=== PATIENT | male | born 1945 | race Caucasian/White ===

== ENCOUNTER 2017-09-24 17:02 | Inpatient (IN) | payer MEDICARE, BC ==
[~2017-09-24] VITALS: Ht 185.4 cm; Wt 117.1 kg
[~2017-09-24 17:02] MED LIST: ALLO100T PO; ASPI81TA82 PO; ATOR40TA PO; COUM5TAB PO; FURO80TA3 PO; KLOR20TA6 PO; METO100T PO; TAMS0.4C67 PO
[2017-09-24 17:03] VITALS: BP 188/102; PULSE 66; RESP 16; TEMP 97.9; O2SAT 95
--- NOTE | 2017-09-24 17:39 | PD ---
HPI Chief Complaint: Cardiac Complaint Time Seen by Provider: 17:30 Travel History International Travel<30 days: No Contact w/Intl Traveler<30days: No Traveled to known affect area: No History of Present Illness HPI Patient seen and examined by me in triage. He is a 72 year old male history of bipass and CHF presents to the ER for evaluation of increasing SOB and 7lb weight gain. Patient was sent by Dr. Alexandre's office for evaluation of increasing shortness of breath over the past few days, he has had a 7 pound weight gain which was confirmed by Dr. Alexandre's office. He denies any chest pain or abdominal pain or nausea or vomiting, so endorses orthopnea and dyspnea on exertion. Symptoms are moderate, gradually worsening over the past few days , associated signs symptoms and context as above PFSH Past Medical History Cancer: Yes Cardiac Catheterization: Yes (ANGIOPLASTY DONE) High Cholesterol: Yes Chest Pain: Yes Coronary Artery Disease: Yes Diminished Hearing: No Hypertension: Yes Immunizations Current: Yes Myocardial Infarction: Yes Past Surgical History Cholecystectomy: Yes Coronary Artery Bypass Graft: Yes Genitourinary Surgery: Yes (RIGHT KIDNEY REMOVED ) Social History Alcohol Use: Yes (OCCASIONAL) Tobacco Use: No Substance Use: No Allergies-Medications (Allergen,Severity, Reaction): Coded Allergies: No Known Allergies (Verified Allergy, Unknown, 09/24/17) Reported Meds & Prescriptions Reported Meds & Active Scripts Active Reported Aspirin 81 Mg Chew 81 Mg CHEW DAILY Allopurinol 100 Mg Tab 100 Mg PO DAILY Tamsulosin (Tamsulosin HCl) 0.4 Mg Cap 0.8 Mg PO HS Torsemide 20 Mg Tab 20 Mg PO DAILY Coreg (Carvedilol) 25 Mg Tab 25 Mg PO BID Review of Systems Except as stated in HPI: all other systems reviewed are Neg Physical Exam Narrative GENERAL: Well-developed, morbidly obese male in no obvious distress. He is quite pleasant, jovial SKIN: Focused skin assessment warm/dry. HEAD: Atraumatic. Normocephalic. EYES: Pupils equal and round. No scleral icterus. No injection or drainage. ENT: No nasal bleeding or discharge. Mucous membranes pink and moist. NECK: Trachea midline. No JVD. CARDIOVASCULAR: Regular rate and rhythm. No murmur appreciated. RESPIRATORY: Mildly tachypneic, no accessory muscle use, bibasilar rales auscultated GASTROINTESTINAL: Abdomen soft, non-tender, nondistended. Hepatic and splenic margins not palpable. MUSCULOSKELETAL: No obvious deformities. No clubbing. No cyanosis. 2+ pitting edema to bilateral lower extremities NEUROLOGICAL: Awake and alert. No obvious cranial nerve deficits. Motor grossly within normal limits. Normal speech. PSYCHIATRIC: Appropriate mood and affect; insight and judgment normal. Data Data Last Documented VS Vital Signs Date Time Temp Pulse Resp B/P (MAP) Pulse Ox O2 Delivery O2 Flow Rate FiO2 09/24/17 18:48 22 97 Room Air 09/24/17 17:03 97.9 66 188/102 (130) Orders Orders Complete Blood Count With Diff (09/24/17 17:17) Comprehensive Metabolic Panel (09/24/17 17:17) B-Type Natriuretic Peptide (09/24/17 17:17) Act Partial Throm Time (Ptt) (09/24/17 17:17) Prothrombin Time / Inr (Pt) (09/24/17 17:17) Magnesium (Mg) (09/24/17 17:17) Ckmb (Isoenzyme) Profile (09/24/17 17:17) Troponin I (09/24/17 17:17) Electrocardiogram (09/24/17 17:17) Chest, Pa & Lat (09/24/17 17:17) Furosemide Inj (Lasix Inj) (09/24/17 17:45) Aspirin Chew (Aspirin Chew) (09/24/17 18:45) Consult Cardiology (09/24/17 ) Admit Order (Ed Use Only) (09/24/17 19:08) Labs Laboratory Tests Test 09/24/17 17:35 White Blood Count 6.2 TH/MM3 Red Blood Count 5.12 MIL/MM3 Hemoglobin 15.6 GM/DL Hematocrit 46.2 % Mean Corpuscular Volume 90.3 FL Mean Corpuscular Hemoglobin 30.5 PG Mean Corpuscular Hemoglobin Concent 33.8 % Red Cell Distribution Width 13.3 % Platelet Count 127 TH/MM3 Mean Platelet Volume 7.4 FL Neutrophils (%) (Auto) 54.1 % Lymphocytes (%) (Auto) 29.6 % Monocytes (%) (Auto) 11.0 % Eosinophils (%) (Auto) 4.4 % Basophils (%) (Auto) 0.9 % Neutrophils # (Auto) 3.3 TH/MM3 Lymphocytes # (Auto) 1.8 TH/MM3 Monocytes # (Auto) 0.7 TH/MM3 Eosinophils # (Auto) 0.3 TH/MM3 Basophils # (Auto) 0.1 TH/MM3 CBC Comment DIFF FINAL Differential Comment Prothrombin Time 11.5 SEC Prothromb Time International Ratio 1.1 RATIO Activated Partial Thromboplast Time 28.7 SEC Blood Urea Nitrogen 24 MG/DL Creatinine 1.66 MG/DL Random Glucose 79 MG/DL Total Protein 7.1 GM/DL Albumin 3.2 GM/DL Calcium Level 9.0 MG/DL Magnesium Level 2.1 MG/DL Alkaline Phosphatase 111 U/L Aspartate Amino Transf (AST/SGOT) 22 U/L Alanine Aminotransferase (ALT/SGPT) 17 U/L Total Bilirubin 0.5 MG/DL Sodium Level 142 MEQ/L Potassium Level 3.9 MEQ/L Chloride Level 106 MEQ/L Carbon Dioxide Level 28.7 MEQ/L Anion Gap 7 MEQ/L Estimat Glomerular Filtration Rate 41 ML/MIN Total Creatine Kinase 97 U/L Troponin I 0.22 NG/ML B-Type Natriuretic Peptide 539 PG/ML MDM Medical Decision Making Medical Screen Exam Complete: Yes Emergency Medical Condition: Yes Differential Diagnosis CHF exacerbation, acute PA, pulmonary edema. Narrative Course Patient seen by me in triage, will be given medical bed when one becomes available. I reviewed an EKG for this patient was to show left bundle branch block without Sgarbossa's criteria, no previous for comparison. He is not having any chest pain or ACS symptoms at this time other than shortness of breath. I have ordered a small dose of Lasix for him and will give report to the medical pod physicians. Dr. Alexandre would like the patient admitted to the hospital and to be consulted on admission. Diagnosis Primary Impression: CHF exacerbation Qualified Codes: I50.9 - Heart failure, unspecified Additional Impression: Elevated troponin Admitting Information Admitting Physician Requests: Admit Condition: Stable Warren Britton MD Sep 24, 2017 17:39
[2017-09-24] MEDS ORDERED: FUROSEMIDE 40 MG/4 ML VIAL IV PUSH ONE (17:45)
[2017-09-24 17:50] LABS: AUTOMATED NEUTROPHIL # 3.3 TH/MM3 (1.8-7.7); BASOPHIL # 0.1 TH/MM3 (0-0.2); BASOPHIL % 0.9 % (0.0-2.0); EOSINOPHIL # 0.3 TH/MM3 (0-0.4); EOSINOPHIL % 4.4 % (0.0-4.0); HEMATOCRIT 46.2 % (39.0-51.0); HEMOGLOBIN 15.6 GM/DL (13.0-17.0); LYMPH % 29.6 % (9.0-44.0); LYMPHOCYTE # 1.8 TH/MM3 (1.0-4.8); MEAN CELL VOLUME 90.3 FL (80.0-100.0); MEAN CORPUSCULAR HEMOGLOBIN 30.5 PG (27.0-34.0); MEAN CORPUSCULAR HGB CONC 33.8 % (32.0-36.0); MEAN PLATELET VOLUME 7.4 FL (7.0-11.0); MONOCYTE # 0.7 TH/MM3 (0-0.9); NEUT % 54.1 % (16.0-70.0); PLATELET COUNT 127 TH/MM3 (150-450); RED BLOOD COUNT 5.12 MIL/MM3 (4.50-5.90); RED CELL DISTRIBUTION WIDTH 13.3 % (11.6-17.2); WHITE BLOOD COUNT 6.2 TH/MM3 (4.0-11.0)
[2017-09-24 18:00] LABS: INTERNATIONAL NORMALIZED RATIO 1.1 RATIO; PROTHROMBIN TIME - PATIENT 11.5 SEC (9.8-11.6)
[2017-09-24 18:17] LABS: ALBUMIN 3.2 GM/DL (3.4-5.0); AST (GOT) 22 U/L (15-37); BICARBONATE 28.7 MEQ/L (21.0-32.0); BLOOD UREA NITROGEN 24 MG/DL (7-18); CHLORIDE 106 MEQ/L (98-107); CREATININE 1.66 MG/DL (0.60-1.30); GLOMERULAR FILTRATION RATE 41 ML/MIN (>89); GLUCOSE,RANDOM 79 MG/DL (74-106); MAGNESIUM 2.1 MG/DL (1.5-2.5); SODIUM (NA) 142 MEQ/L (136-145)
[2017-09-24 18:18] LABS: ALT (GPT) 17 U/L (12-78)
[2017-09-24 18:24] LABS: ALKALINE PHOSPHATASE 111 U/L (45-117); TOTAL BILIRUBIN ADULT 0.5 MG/DL (0.2-1.0); TOTAL PROTEIN 7.1 GM/DL (6.4-8.2); TROPONIN I 0.22 NG/ML (0.02-0.05)
--- NOTE | 2017-09-24 18:37 | RADRPT ---
EXAM DATE/TIME: 09/24/2017 18:08 [place] COMPARISON: No previous studies available for comparison. INDICATIONS : Shortness of breath, chest tightness for 2 weeks MEDICAL HISTORY : Cardiovascular disease. SURGICAL HISTORY : CABG. ENCOUNTER: Initial ACUITY: 2 weeks PAIN SCORE: 5/10 LOCATION: Bilateral chest FINDINGS: PA and lateral views of the chest show moderate cardiomegaly. No pulmonary vascular engorgement. Lung s are clear. No effusions. Degenerative thoracic spine. Median sternotomy wires. CONCLUSION: Cardiomegaly. No pulmonary vascular engorgement or infiltrates. Best Pacheco Jr., MD on September 24, 2017 at 18:32 Board Certified Radiologist. This report was verified electronically.
[2017-09-24] MEDS ORDERED: ASPIRIN 81 MG CHEW TAB CHEW ONE (18:45)
[2017-09-24] MEDS ORDERED: CORE25TA PO (18:55)
[2017-09-24] MEDS ORDERED: ASPI-516 CHEW (18:55)
[2017-09-24] MEDS ORDERED: ALLO100T PO (18:55)
[2017-09-24] MEDS ORDERED: TORS20TA PO (18:55)
[2017-09-24] MEDS ORDERED: TAMS0.4C4 PO (18:55)
[2017-09-24] MEDS ORDERED: SODIUM CHLORIDE 0.9% FLUSH 10 ML FLUSH IV FLUSH PRN (19:30)
[2017-09-24] MEDS ORDERED: MAGNESIUM HYDROXIDE SUSP 30 ML CUP PO PRN (19:30)
[2017-09-24] MEDS ORDERED: NALOXONE HCL 0.4 MG/ML AMP IV PUSH PRN (19:30)
[2017-09-24] MEDS ORDERED: LACTULOSE SYRUP 20 GM/30 ML CUP PO PRN (19:30)
[2017-09-24] MEDS ORDERED: BISACODYL 10 MG SUPP RECTAL PRN (19:30)
[2017-09-24] MEDS ORDERED: ACETAMINOPHEN 325 MG TAB PO PRN (19:30)
[2017-09-24] MEDS ORDERED: ONDANSETRON HCL 4 MG/2 ML VIAL IVP PRN (19:30)
[2017-09-24] MEDS ORDERED: SENNOSIDES 8.6 MG TAB PO PRN (19:30)
--- NOTE | 2017-09-24 19:31 | PD ---
Physical Exam Time Seen by Provider: 19:00 Data Data Last Documented VS Vital Signs Date Time Temp Pulse Resp B/P (MAP) Pulse Ox O2 Delivery O2 Flow Rate FiO2 09/24/17 18:48 22 97 Room Air 09/24/17 17:03 97.9 66 188/102 (130) Orders Orders Complete Blood Count With Diff (09/24/17 17:17) Comprehensive Metabolic Panel (09/24/17 17:17) B-Type Natriuretic Peptide (09/24/17 17:17) Act Partial Throm Time (Ptt) (09/24/17 17:17) Prothrombin Time / Inr (Pt) (09/24/17 17:17) Magnesium (Mg) (09/24/17 17:17) Ckmb (Isoenzyme) Profile (09/24/17 17:17) Troponin I (09/24/17 17:17) Electrocardiogram (09/24/17 17:17) Chest, Pa & Lat (09/24/17 17:17) Furosemide Inj (Lasix Inj) (09/24/17 17:45) Aspirin Chew (Aspirin Chew) (09/24/17 18:45) Consult Cardiology (09/24/17 ) Admit Order (Ed Use Only) (09/24/17 19:08) Labs Laboratory Tests Test 09/24/17 17:35 White Blood Count 6.2 TH/MM3 Red Blood Count 5.12 MIL/MM3 Hemoglobin 15.6 GM/DL Hematocrit 46.2 % Mean Corpuscular Volume 90.3 FL Mean Corpuscular Hemoglobin 30.5 PG Mean Corpuscular Hemoglobin Concent 33.8 % Red Cell Distribution Width 13.3 % Platelet Count 127 TH/MM3 Mean Platelet Volume 7.4 FL Neutrophils (%) (Auto) 54.1 % Lymphocytes (%) (Auto) 29.6 % Monocytes (%) (Auto) 11.0 % Eosinophils (%) (Auto) 4.4 % Basophils (%) (Auto) 0.9 % Neutrophils # (Auto) 3.3 TH/MM3 Lymphocytes # (Auto) 1.8 TH/MM3 Monocytes # (Auto) 0.7 TH/MM3 Eosinophils # (Auto) 0.3 TH/MM3 Basophils # (Auto) 0.1 TH/MM3 CBC Comment DIFF FINAL Differential Comment Prothrombin Time 11.5 SEC Prothromb Time International Ratio 1.1 RATIO Activated Partial Thromboplast Time 28.7 SEC Blood Urea Nitrogen 24 MG/DL Creatinine 1.66 MG/DL Random Glucose 79 MG/DL Total Protein 7.1 GM/DL Albumin 3.2 GM/DL Calcium Level 9.0 MG/DL Magnesium Level 2.1 MG/DL Alkaline Phosphatase 111 U/L Aspartate Amino Transf (AST/SGOT) 22 U/L Alanine Aminotransferase (ALT/SGPT) 17 U/L Total Bilirubin 0.5 MG/DL Sodium Level 142 MEQ/L Potassium Level 3.9 MEQ/L Chloride Level 106 MEQ/L Carbon Dioxide Level 28.7 MEQ/L Anion Gap 7 MEQ/L Estimat Glomerular Filtration Rate 41 ML/MIN Total Creatine Kinase 97 U/L Troponin I 0.22 NG/ML B-Type Natriuretic Peptide 539 PG/ML MDM Medical Record Reviewed: Yes Supervised Visit with LEANN: Yes Narrative Course Patient was initially seen by Dr. Britton and signed out to me pending labs for admission. In short, this is a 72-year-old male with a history of heart disease who was sent to the emergency room by his senior automation engineer, Dr. Ankit Velasquez , for evaluation of worsening dyspnea on exertion and 7 pound weight gain. Patient states edema and orthopnea been ongoing for the past month. He has been on Lasix from his primary care physician. Went to follow-up with his senior automation engineer today and they recommended he come to the ED with admission and consultation to cardiology and nephrology services. Patient denies history of CHF. CBC is unremarkable. CMP is only remarkable for elevated creatinine, patient has history of chronic any disease. He has an elevated troponin of 0.22. His BNP is 539. He was given IV Lasix and aspirin in the ED. Vital signs stable. Patient will be admitted to the hospitalist service. I spoke to Dr. Werner, who agrees to accept this patient to her service. Diagnosis Primary Impression: Elevated troponin Additional Impression: CHF exacerbation Qualified Codes: I50.9 - Heart failure, unspecified Admitting Information Admitting Physician Requests: Admit Condition: Stable Tracy Brown Sep 24, 2017 19:30
--- NOTE | 2017-09-24 20:30 | HHI.HP ---
[facility] Physician Anne Manriquez MD Admission Diagnosis elevated troponin, CHF exacerbation Diagnoses: Travel History International Travel<30 Days: No Contact w/Intl Traveler <30 Da: No Traveled to Known Affected Are: No History of Present Illness 72-year-old male with a past medical history significant for CHF, CAD, hypertension and history of renal cell carcinoma status post nephrectomy presents to the emergency department for further evaluation of CHF exacerbation. The patient was being seen by Dr. Alexandre in his office when he was sent to the emergency department for diuresis and further evaluation. The patient reports he has had shortness of breath that has been steadily worsening over the past several months. He also complains of bilateral lower extremity swelling for the past 1-2 months. He endorses intermittent chest tightness for 2 months although denies any current chest pain or pressure. Review of Systems Except as stated in HPI: all other systems reviewed are Neg Past Family Social History Past Medical History CAD CHF Hypertension History of renal cell carcinoma Past Surgical History CABG in 2013 Right nephrectomy Cholecystectomy Reported Medications Reported Meds & Active Scripts Active Reported Aspirin 81 Mg Chew 81 Mg CHEW DAILY Allopurinol 100 Mg Tab 100 Mg PO DAILY Tamsulosin (Tamsulosin HCl) 0.4 Mg Cap 0.8 Mg PO HS Torsemide 20 Mg Tab 20 Mg PO DAILY Coreg (Carvedilol) 25 Mg Tab 25 Mg PO BID Allergies: Coded Allergies: No Known Allergies (Verified Allergy, Unknown, 09/24/17) Family History Father with CAD Social History Occasional alcohol. Denies tobacco or illicit drugs. Physical Exam Vital Signs Vital Signs Date Time Temp Pulse Resp B/P (MAP) Pulse Ox O2 Delivery O2 Flow Rate FiO2 09/24/17 18:48 22 97 Room Air 09/24/17 17:03 97.9 66 16 188/102 (130) 95 Room Air Physical Exam GENERAL: Male lying in bed SKIN: No rashes, ecchymoses or lesions. Cool and dry. HEAD: Atraumatic. Normocephalic. No temporal or scalp tenderness. EYES: Pupils equal round and reactive. Extraocular motions intact. No scleral icterus. No injection or drainage. ENT: Nose without bleeding, purulent drainage or septal hematoma. Throat without erythema, tonsillar hypertrophy or exudate. Uvula midline. Airway patent. NECK: Trachea midline. No JVD or lymphadenopathy. Supple, nontender, no meningeal signs. CARDIOVASCULAR: Regular rate and rhythm without murmurs, gallops, or rubs. RESPIRATORY: Bilateral crackles in the bases. No wheezes, rales, or rhonchi. GASTROINTESTINAL: Abdomen soft, non-tender, nondistended. No hepato-splenomegaly , or palpable masses. No guarding. MUSCULOSKELETAL: 2+ pitting edema to the knees. No calf tenderness. NEUROLOGICAL: Awake and alert. Cranial nerves II through XII intact. Motor and sensory grossly within normal limits. Normal speech. Laboratory Laboratory Tests Test 09/24/17 17:35 White Blood Count 6.2 Red Blood Count 5.12 Hemoglobin 15.6 Hematocrit 46.2 Mean Corpuscular Volume 90.3 Mean Corpuscular Hemoglobin 30.5 Mean Corpuscular Hemoglobin Concent 33.8 Red Cell Distribution Width 13.3 Platelet Count 127 Mean Platelet Volume 7.4 Neutrophils (%) (Auto) 54.1 Lymphocytes (%) (Auto) 29.6 Monocytes (%) (Auto) 11.0 Eosinophils (%) (Auto) 4.4 Basophils (%) (Auto) 0.9 Neutrophils # (Auto) 3.3 Lymphocytes # (Auto) 1.8 Monocytes # (Auto) 0.7 Eosinophils # (Auto) 0.3 Basophils # (Auto) 0.1 CBC Comment DIFF FINAL Differential Comment Prothrombin Time 11.5 Prothromb Time International Ratio 1.1 Activated Partial Thromboplast Time 28.7 Blood Urea Nitrogen 24 Creatinine 1.66 Random Glucose 79 Total Protein 7.1 Albumin 3.2 Calcium Level 9.0 Magnesium Level 2.1 Alkaline Phosphatase 111 Aspartate Amino Transf (AST/SGOT) 22 Alanine Aminotransferase (ALT/SGPT) 17 Total Bilirubin 0.5 Sodium Level 142 Potassium Level 3.9 Chloride Level 106 Carbon Dioxide Level 28.7 Anion Gap 7 Estimat Glomerular Filtration Rate 41 Total Creatine Kinase 97 Troponin I 0.22 B-Type Natriuretic Peptide 539 Result Diagram: 09/24/17 1735 09/24/17 173 Caprini VTE Risk Assessment Caprini VTE Risk Assessment: Mod/High Risk (score >= 2) Caprini Risk Assessment Model Point Value = 1 Point Value = 2 Point Value = 3 Point Value = 5 Age 41-60 Minor surgery BMI > 25 kg/m2 Swollen legs Varicose veins or History of unexplained or recurrent spontaneous Oral contraceptives or hormone replacement Sepsis (< 1 month) Serious lung disease, including pneumonia (< 1 month) Abnormal pulmonary function Acute myocardial infarction Congestive heart failure (< 1 month) History of inflammatory bowel disease Medical patient at bed rest Age 61-74 Arthroscopic surgery Major open surgery (> 45 min) Laparoscopic surgery (> 45 min) Malignancy Confined to bed (> 72 hours) Immobilizing plaster cast Central venous access Age >= 75 History of VTE Family history of VTE Factor V Leiden Prothrombin [id number] Lupus anticoagulant Anticardiolipin antibodies Elevated serum homocysteine Heparin-induced thrombocytopenia Other congenital or acquired thrombophilia Stroke (< 1 month) Elective arthroplasty Hip, pelvis, or leg fracture Acute spinal cord injury (< 1 month) Prophylaxis Regimen Total Risk Factor Score Risk Level Prophylaxis Regimen 0-1 Low Early ambulation 2 Moderate Order ONE of the following: *Sequential Compression Device (SCD) *Heparin 5000 units SQ BID 3-4 Higher Order ONE of the following medications: *Heparin 5000 units SQ TID *Enoxaparin/Lovenox 40 mg SQ daily (WT < 150 kg, CrCl > 30 mL/min) *Enoxaparin/Lovenox 30 mg SQ daily (WT < 150 kg, CrCl > 10-29 mL/min) *Enoxaparin/Lovenox 30 mg SQ BID (WT < 150 kg, CrCl > 30 mL/min) AND/OR *Sequential Compression Device (SCD) 5 or more Highest Order ONE of the following medications: *Heparin 5000 units SQ TID (Preferred with Epidurals) *Enoxaparin/Lovenox 40 mg SQ daily (WT < 150 kg, CrCl > 30 mL/min) *Enoxaparin/Lovenox 30 mg SQ daily (WT < 150 kg, CrCl > 10-29 mL/min) *Enoxaparin/Lovenox 30 mg SQ BID (WT < 150 kg, CrCl > 30 mL/min) AND *Sequential Compression Device (SCD) Assessment and Plan Assessment and Plan Assessment/plan: 1. CHF exacerbation Chest x-ray significant for cardiomegaly without pulmonary vascular edema, personally reviewed BNP 539 Echo pending IV Lasix Monitor for signs of volume overload Patient's resource conservation manager, Dr. Alexandre, consulted, appreciate recommendations 2. Chest pain/elevated troponin Troponin 0.22 EKG showed normal sinus rhythm with first-degree AV block, no ST segment elevations or depressions, personally reviewed ACS rule out pending; serial troponin/EKGs 3. Chronic kidney disease Creatinine 1.66, no baseline for comparison Patient status post nephrectomy for renal cell carcinoma Nephrology consulted, appreciate recommendations 4. CAD/hypertension Continue home medications FEN Heart healthy diet Electrolytes: monitor and replete prn Heparin Amanda Werner MD Sep 24, 2017 20:30
[2017-09-24] MEDS: SODIUM CHLORIDE 0.9% FLUSH 10 ML FLUSH IV FLUSH SCH (21:00)
--- NOTE | 2017-09-24 21:15 | EKG ---
Date Performed: 09/24/2017 Time Performed: 17:27:47 PTAGE: 72 years EKG: Sinus rhythm WITH FIRST DEGREE AV BLOCK LEFT ANTERIOR FASCICULAR BLOCK LEFT VENTRICULAR HYPERTROPHY AND ST-T SARGENT GE POSSIBLE ANTERIOR MYOCARDIAL INFARCTION ABNORMAL ECG PREVIOUS TRACICompared to prior electrocardio gram, rate has increased and ST segment and T wave changes are now present N12/16/2003 22.36 DOCTOR: Cody Goldberg Interpretating Date/Time 09/24/2017 21:14:22
[2017-09-24] MEDS: CARVEDILOL 12.5 MG TAB PO SCH (21:55)
[2017-09-24] MEDS: HEPARIN SODIUM - SQ 10,000 UNITS/ML VIAL SQ SCH ×2 (21:55→22:00)
[2017-09-24 22:01] VITALS: BP 166/95; PULSE 59; RESP 20; O2SAT 98
[2017-09-24] MEDS: TAMSULOSIN HCL 0.4 MG CAP PO SCH (22:38)
[2017-09-24 23:29] VITALS: BP 170/98; PULSE 61; RESP 18; TEMP 97.9; O2SAT 97
[2017-09-25] VITALS (10 sets, daily range): BP systolic 128–173; BP diastolic 70–95; PULSE 58–63; RESP 16–20; TEMP 97.3–97.7; O2SAT 97–99
[2017-09-25 01:17] LABS: TROPONIN I 0.54 NG/ML (0.02-0.05)
[2017-09-25] MEDS: HEPARIN SODIUM - SQ 10,000 UNITS/ML VIAL SQ SCH (04:53)
[2017-09-25 07:31] LABS: AUTOMATED NEUTROPHIL # 3.5 TH/MM3 (1.8-7.7); BASOPHIL % 0.6 % (0.0-2.0); EOSINOPHIL # 0.4 TH/MM3 (0-0.4); EOSINOPHIL % 5.4 % (0.0-4.0); HEMATOCRIT 44.7 % (39.0-51.0); LYMPH % 33.3 % (9.0-44.0); LYMPHOCYTE # 2.3 TH/MM3 (1.0-4.8); MEAN CELL VOLUME 89.3 FL (80.0-100.0); MEAN CORPUSCULAR HEMOGLOBIN 29.9 PG (27.0-34.0); MEAN CORPUSCULAR HGB CONC 33.5 % (32.0-36.0); MEAN PLATELET VOLUME 7.5 FL (7.0-11.0); MONO % 10.1 % (0.0-8.0); MONOCYTE # 0.7 TH/MM3 (0-0.9); NEUT % 50.6 % (16.0-70.0); PLATELET COUNT 120 TH/MM3 (150-450); RED BLOOD COUNT 5.01 MIL/MM3 (4.50-5.90); RED CELL DISTRIBUTION WIDTH 13.3 % (11.6-17.2)
[2017-09-25 07:55] LABS: BICARBONATE 26.7 MEQ/L (21.0-32.0); CALCIUM 8.3 MG/DL (8.5-10.1); CREATININE 1.45 MG/DL (0.60-1.30)
--- NOTE | 2017-09-25 08:06 | EKG ---
Date Performed: 09/25/2017 Time Performed: 05:56:07 PTAGE: 72 years EKG: SINUS BRADYCARDIA WITH FIRST DEGREE AV BLOCK LEFT ANTERIOR FASCICULAR BLOCK LEFT VENTRICULA R HYPERTROPHY AND ST-T CHANGE POSSIBLE ANTERIOR MYOCARDIAL INFARCTION ABNORMAL ECG No significant lupis nge from prior electrocardiogram. PREVIOUS TRACING : 09/25/2017 01.35 DOCTOR: Cody Goldberg Interpretating Date/Time 09/25/2017 08:05:25
--- NOTE | 2017-09-25 08:11 | EKG ---
Date Performed: 09/25/2017 Time Performed: 01:35:14 PTAGE: 72 years EKG: SINUS BRADYCARDIA WITH FIRST DEGREE AV BLOCK WITH OCCASIONAL SUPRAVENTRICULAR PREMATURE COM PLEXES MARKED LEFT AXIS DEVIATION INTRAVENTRICULAR CONDUCTION DELAY LEFT VENTRICULAR HYPERTROPHY AND ST-T CHANGE POSSIBLE ANTEROSEPTAL MYOCARDIAL INFARCTION ABNORMAL ECG No significant change from prior electrocardiogram. PREVIOUS TRACING : 09/24/2017 17.27 DOCTOR: Cody Goldberg Interpretating Date/Time 09/25/2017 08:09:54
[2017-09-25 08:17] LABS: TROPONIN I 0.78 NG/ML (0.02-0.05)
[2017-09-25] MEDS ORDERED: HEPARIN SODIUM - IV 10,000 UNITS/10 ML VIAL IV PUSH ONE (09:00)
[2017-09-25] MEDS ORDERED: HEPARIN-D5W 25,000 U/250 ML 250 ML IV PRN (09:00)
[2017-09-25] MEDS ORDERED: ASPIRIN 81 MG CHEW TAB CHEW SCH (09:00)
[2017-09-25] MEDS ORDERED: TORSEMIDE 20 MG TAB PO SCH (09:00)
--- NOTE | 2017-09-25 09:13 | PD.CONS ---
HPI Service Nephrology Consult Requested By Dr Britton Reason for Consult CKD with CHF Patient is s/p nephrectomy Primary Care Physician Anne Manriquez MD History of Present Illness Patient is a 72-year-old male who presents to ER for evaluation of CHF exacerbation. Patient has a past medical history significant for CHF, CAD, hypertension and history of renal cell carcinoma. S/P nephrectomy in 2013 in [facility]. The patient was being seen by Dr. Alexandre in his office when he was sent to the emergency department for diuresis and further evaluation. Patient has 2-3 + lower extremity edema and crackles noted in lungs. Per patient Dr. Alexandre plans on doing a heart cath this admission. Creatinine is at 1.45 and GFR 48ml/min. Is not followed by a lime puller locally. (Janeth Huber) Review of Systems Respiratory: COMPLAINS OF: Shortness of breath Cardiovascular: COMPLAINS OF: Chest pain, Lower Extremity Edema Gastrointestinal: DENIES: Constipation, Diarrhea, Nausea, Vomiting Genitourinary: DENIES: Hematuria, Dysuria Psychiatric: COMPLAINS OF: Anxiety (Janeth Huber) Past Family Social History Allergies: Coded Allergies: No Known Allergies (Verified Allergy, Unknown, 09/24/17) Past Medical History CAD CHF Hypertension History of renal cell carcinoma Past Surgical History CABG in 2013 Right nephrectomy Cholecystectomy Active Ordered Medications Current Medications Medications (Trade) Dose Ordered Sig/Kareen Route Start Time Stop Time Status Last Admin (NS Flush) 2 ml UNSCH PRN IV FLUSH 09/24/17 19:30 (NS Flush) 2 ml BID IV FLUSH 09/24/17 21:00 (Tylenol) 650 mg Q4H PRN PO 09/24/17 19:30 (Zofran Inj) 4 mg Q6H PRN IVP 09/24/17 19:30 (Narcan Inj) 0.4 mg UNSCH PRN IV PUSH 09/24/17 19:30 (Milk Of Magnesia Liq) 30 ml Q12H PRN PO 09/24/17 19:30 (Senokot) 17.2 mg Q12H PRN PO 09/24/17 19:30 (Dulcolax Supp) 10 mg DAILY PRN RECTAL 09/24/17 19:30 (Lactulose Liq) 30 ml DAILY PRN PO 09/24/17 19:30 (Lasix Inj) 40 mg BID@,18 IV PUSH 09/25/17 09:00 (Zyloprim) 100 mg DAILY PO 09/25/17 09:00 (Aspirin Chew) 81 mg DAILY CHEW 09/25/17 09:00 (Coreg) 25 mg BID PO 09/24/17 21:00 09/24/17 21:55 (Flomax) 0.8 mg HS PO 09/24/17 21:00 09/24/17 22:38 (Demadex) 20 mg DAILY PO 09/25/17 09:00 (Heparin Inj) 5,000 units Q8HR SQ 09/24/17 22:00 Family History Father with heart disease Social History Quit smoking over 20 years ago Infrequent ETOH use Lives in [place] and [place] (Janeth Huber) Physical Exam Vital Signs Vital Signs Date Time Temp Pulse Resp B/P (MAP) Pulse Ox O2 Delivery O2 Flow Rate FiO2 09/25/17 08:36 61 09/25/17 08:16 97.5 63 18 173/95 (121) 99 09/25/17 05:49 58 18 170/92 (118) 99 09/25/17 02:12 21 09/24/17 23:29 97.9 61 18 170/98 (122) 97 09/24/17 22:01 59 20 166/95 (118) 98 Room Air 09/24/17 21:56 98 Room Air 09/24/17 18:48 22 97 Room Air 09/24/17 17:03 97.9 66 16 188/102 (130) 95 Room Air Physical Exam GENERAL: Alert and oriented SKIN: Warm and dry. HEAD: Normocephalic. EYES: No scleral icterus. No injection or drainage. NECK: Supple, trachea midline. No JVD or lymphadenopathy. CARDIOVASCULAR: Regular rate and rhythm without murmurs, gallops, or rubs. RESPIRATORY: Breath sounds equal bilaterally. No accessory muscle use. crackles noted in based GASTROINTESTINAL: Abdomen soft, non-tender, nondistended. MUSCULOSKELETAL: No cyanosis. 2-3 + edema noted in lower extremity BACK: Nontender without obvious deformity. No CVA tenderness. Laboratory Laboratory Tests Test 09/24/17 17:35 09/25/17 00:42 09/25/17 07:10 White Blood Count 6.2 7.0 Red Blood Count 5.12 5.01 Hemoglobin 15.6 15.0 Hematocrit 46.2 44.7 Mean Corpuscular Volume 90.3 89.3 Mean Corpuscular Hemoglobin 30.5 29.9 Mean Corpuscular Hemoglobin Concent 33.8 33.5 Red Cell Distribution Width 13.3 13.3 Platelet Count 127 120 Mean Platelet Volume 7.4 7.5 Neutrophils (%) (Auto) 54.1 50.6 Lymphocytes (%) (Auto) 29.6 33.3 Monocytes (%) (Auto) 11.0 10.1 Eosinophils (%) (Auto) 4.4 5.4 Basophils (%) (Auto) 0.9 0.6 Neutrophils # (Auto) 3.3 3.5 Lymphocytes # (Auto) 1.8 2.3 Monocytes # (Auto) 0.7 0.7 Eosinophils # (Auto) 0.3 0.4 Basophils # (Auto) 0.1 0.0 CBC Comment DIFF FINAL DIFF FINAL Differential Comment Prothrombin Time 11.5 Prothromb Time International Ratio 1.1 Activated Partial Thromboplast Time 28.7 Blood Urea Nitrogen 24 23 Creatinine 1.66 1.45 Random Glucose 79 91 Total Protein 7.1 Albumin 3.2 Calcium Level 9.0 8.3 Magnesium Level 2.1 Alkaline Phosphatase 111 Aspartate Amino Transf (AST/SGOT) 22 Alanine Aminotransferase (ALT/SGPT) 17 Total Bilirubin 0.5 Sodium Level 142 142 Potassium Level 3.9 3.3 Chloride Level 106 108 Carbon Dioxide Level 28.7 26.7 Anion Gap 7 7 Estimat Glomerular Filtration Rate 41 48 Total Creatine Kinase 97 105 84 Troponin I 0.22 0.54 0.78 B-Type Natriuretic Peptide 539 (Janeth Huber) Result Diagram: 09/25/17 0710 09/25/17 0710 Imaging Last Impressions Chest X-Ray 09/24/17 1717 Signed Impressions: Service Date/Time: Sunday, September 24, 2017 18:08 - CONCLUSION: Cardiomegaly. No pulmonary vascular engorgement or infiltrates. Best Pacheco Jr., MD (Janeth Huber) Assessment and Plan Problem List: (1) CKD (chronic kidney disease) ICD Codes: N18.9 - Chronic kidney disease, unspecified Plan: Patient is s/p nephrectomy 2013 for renal cell carcinoma Creatinine at 1.45 and GFR 48ml/min 2-3+ pitting edema in lower extremity Plan Continue Lasix 40 mg IV BID Monitor urinary output and weight Will monitor renal function Avoid nephrotoxins. (2) CHF exacerbation ICD Codes: I50.9 - Heart failure, unspecified Status: Acute Plan: On room air Continue IV lasix (3) HTN (hypertension) ICD Codes: I10 - Essential (primary) hypertension Plan: Elevated expect improvement with diuresis Will monitor Home medications resumed. (4) Elevated troponin ICD Codes: R74.8 - Abnormal levels of other serum enzymes Status: Acute Plan: Patient with Chest tightness Serial troponin with trop 0.22 to 0.78 (Janeth Huber) Problem List: (1) CKD (chronic kidney disease) ICD Codes: N18.9 - Chronic kidney disease, unspecified Plan: Patient is s/p nephrectomy 2013 for renal cell carcinoma Creatinine at 1.45 and GFR 48ml/min 2-3+ pitting edema in lower extremity Plan Continue Lasix 40 mg IV BID Monitor urinary output and weight Will monitor renal function Avoid nephrotoxins. Patient seen, examined and agree with above. If need Cardiac Cath, will have 10-15% risk for contrast Nephropathy. D/W the patient and the . (2) CHF exacerbation ICD Codes: I50.9 - Heart failure, unspecified Status: Acute Plan: On room air Continue IV lasix (3) HTN (hypertension) ICD Codes: I10 - Essential (primary) hypertension Plan: Elevated expect improvement with diuresis Will monitor Home medications resumed. (4) Elevated troponin ICD Codes: R74.8 - Abnormal levels of other serum enzymes Status: Acute Plan: Patient with Chest tightness Serial troponin with trop 0.22 to 0.78 (Jessi Mcmahon MD) Problem Qualifiers (1) CHF exacerbation: Qualified Codes: I50.9 - Heart failure, unspecified Janeth Huber Sep 25, 2017 09:13 Jessi Mcmahon MD Sep 25, 2017 17:32
[2017-09-25] MEDS ORDERED: ATORVASTATIN 80 MG TAB PO ONE (09:15)
--- NOTE | 2017-09-25 09:15 | HHI.PR ---
Subjective Remarks Follow up for elevated troponins, congestive heart failure. Patient is currently doing well. He continues to have shortness of breath. Denies any chest pain. No fever, chills. No nausea, vomiting or diaphoresis. Objective Vitals Vital Signs Date Time Temp Pulse Resp B/P (MAP) Pulse Ox O2 Delivery O2 Flow Rate FiO2 09/25/17 08:36 61 09/25/17 08:16 97.5 63 18 173/95 (121) 99 09/25/17 05:49 58 18 170/92 (118) 99 09/25/17 02:12 21 09/24/17 23:29 97.9 61 18 170/98 (122) 97 09/24/17 22:01 59 20 166/95 (118) 98 Room Air 09/24/17 21:56 98 Room Air 09/24/17 18:48 22 97 Room Air 09/24/17 17:03 97.9 66 16 188/102 (130) 95 Room Air Result Diagram: 09/25/17 0710 09/25/17 0710 Imaging Last Impressions Lower Extremity Ultrasound 09/25/17 0000 Signed Impressions: Service Date/Time: September 09:53 - CONCLUSION: 1. Negative exam with no evidence of deep venous thrombosis. 2. Bilateral lower extremity edema. Salvador Graves MD Chest X-Ray 09/24/17 0972 Signed Impressions: Service Date/Time: Sunday, September 24, 2017 18:08 - CONCLUSION: Cardiomegaly. No pulmonary vascular engorgement or infiltrates. Best Pacheco Jr., MD Objective Remarks GENERAL: Alert, oriented x 3, NAD. SKIN: Warm and dry. HEAD: Normocephalic. EYES: No scleral icterus. No injection or drainage. NECK: Supple, trachea midline. No JVD or lymphadenopathy. CARDIOVASCULAR: Regular rate and rhythm without murmurs, gallops, or rubs. Bibasilar mild crackles. RESPIRATORY: Breath sounds equal bilaterally. No accessory muscle use. GASTROINTESTINAL: Abdomen soft, non-tender, nondistended. MUSCULOSKELETAL: No cyanosis. 2+ lower ext edema. BACK: Nontender without obvious deformity. No CVA tenderness. Procedures None. A/P Problem List: (1) CKD (chronic kidney disease) stage 3, GFR 30-59 ml/min ICD Code: N18.3 - Chronic kidney disease, stage 3 (moderate) (2) CHF exacerbation ICD Code: I50.9 - Heart failure, unspecified Status: Acute (3) Elevated troponin ICD Code: R74.8 - Abnormal levels of other serum enzymes Status: Acute Assessment and Plan 72-year-old male with a past medical history significant for CHF, CAD, hypertension and history of renal cell carcinoma status post nephrectomy presents to the emergency department for further evaluation of CHF exacerbation. The patient was being seen by Dr. Alexandre in his office when he was sent to the emergency department for diuresis and further evaluation. He endorses intermittent chest tightness for 2 months although denies any current chest pain or pressure. - NSTEMI - Acute exacerbation of systolic CHF - EF 44% in 08/2017 per cardiology. - Troponins elevated 0.22, 0.54, 0.78. BNP 539. Patient reported intermittent chest pain in the last two months. - Given upward trend of troponin elevation, we originally ordered heparin drip. - However, cardiology recommended not to start heparin drip since patient does not have acute chest pain. - Will d/c heparin drip. - Start Lipitor 80mg QHS. - Continue Lasix 40mg IV BID. - CAD s/p CABG X 3v. - continue Aspirin, Carvedilol, Lasix, Hydralazine, Imdur. - Hypokalemia - CKD Stage III - Hx of Renal cell carcinoma s/p right nephrectomy. - Will give KCL 30meQ once and then continue 20meQ Qday. - Avoid nephrotoxins. Hx of PE - patient has IVC filter. Full code. Lovenox for DVT prophylaxis. Problem Qualifiers (1) CHF exacerbation: Qualified Codes: I50.9 - Heart failure, unspecified Caren Norman DO Sep 25, 2017 09:14
[2017-09-25] MEDS: FUROSEMIDE 40 MG/4 ML VIAL IV PUSH SCH ×2 (09:26→19:03)
[2017-09-25] MEDS: SODIUM CHLORIDE 0.9% FLUSH 10 ML FLUSH IV FLUSH SCH ×2 (09:26→22:14)
[2017-09-25] MEDS: ALLOPURINOL 100 MG TAB PO SCH (09:26)
[2017-09-25] MEDS: CARVEDILOL 12.5 MG TAB PO SCH ×2 (09:28→22:14)
--- NOTE | 2017-09-25 10:22 | RADRPT ---
EXAM DATE/TIME: 09/25/2017 09:53 [facility] COMPARISON: No previous studies available for comparison. INDICATIONS : Bilateral leg swelling and pain. MEDICAL HISTORY : Congestive heart failure. Hypercholesterolemia. Hypertension. Myocardial infarction. Coronary artery disease. Anxiety. Renal cancer. BPH. SURGICAL HISTORY : Nephrectomy, right.Cholecystectomy. CABGAngioplasty. ENCOUNTER: Initial ACUITY: 1 day PAIN SCORE: 1/10 LOCATION: Bilateral legs. TECHNIQUE: Venous ultrasound of the left and right leg was performed from the inguinal ligament to the proximal calf. Real-time, color Doppler and spectral tracing, compression and augmentation techniques were us ed. FINDINGS: RIGHT LEG: There is normal compressibility of the deep venous system from the inguinal region to the proximal ca lf. No echogenic clot is seen in the lumen of the common femoral, femoral, popliteal, and posterior tibial veins. There is a normal response of the venous system to proximal and distal augmentation an d respiration. Edema is noted. LEFT LEG: There is normal compressibility of the deep venous system from the inguinal region to the proximal ca lf. No echogenic clot is seen in the lumen of the common femoral, femoral, popliteal, and posterior tibial veins. There is a normal response of the venous system to proximal and distal augmentation an d respiration. Edema is noted. CONCLUSION: 1. Negative exam with no evidence of deep venous thrombosis. 2. Bilateral lower extremity edema. Salvador Graves MD on September 25, 2017 at 10:19 Board Certified Radiologist. This report was verified electronically.
--- NOTE | 2017-09-25 10:56 | PD.CONS ---
HPI Service Cardiology Consult Requested By Dr. Britton Reason for Consult CHF Primary Care Physician Anne Manriquez MD History of Present Illness The patient is a 72 year old male who recently presented to our office for new patient evaluation for CHF with a cardiac history of ASHD s/p CABG 2012, decreased LV function EF 44%, HLD, PE s/p IVC and obesity. Other notable history is renal cancer s/p right nephrectomy. The patient developed new onset CHF symptoms about a month ago that improved with diuretics, however after returning from a recent vacation in [facility], his weight increased associated with increased edema and SOB. He has orthopnea. He denies CP. While on vacation , he was able to walk around without symptoms. We recently completed a cardiac PET scan that was abnormal with concern for occluded grafts. Work up reveals elevated troponin with upward trend, HTN, CHF exacerbation and decreased renal function. BLE ultrasound is negative for DVT. He admits to ongoing orthopnea with supine position and BLE edema. (Matilde Ji) Review of Systems Consitutional: COMPLAINS OF: Weight gain, DENIES: Fatigue, Fever, Chills, Weight loss Eyes: DENIES: Amaurosis Fugax, Change in vision HEENT: DENIES: Lightheadedness, Change in hearing Respiratory: COMPLAINS OF: Shortness of breath, DENIES: See HPI, Cough, Snoring , Wheezing, Sputum production Cardiovascular: DENIES: See HPI, Chest pain, Palpitations, Syncope, Tachycardia Gastrointestinal: DENIES: Nausea, Vomiting, Change in bowel habits, Reflux, Bloody stools, Melena Genitourinary: DENIES: Urinary incontinence, Difficulty voiding Integumentary: DENIES: Rash Neurologic: DENIES: Tingling or numbness, Memory problems, Poor Balance, Stroke symptoms Musculoskeletal: DENIES: Joint pain, Muscle pain, Limited range of motion, Back pain Psychiatric: DENIES: Anxiety, Depression, Sleep disturbances Hematologic: DENIES: Bruising tendencies, Bleeding tendencies Endocrine: COMPLAINS OF: Weight gain, DENIES: Weight loss, Thyroid disease ( Matilde Ji) Past Family Social History Allergies: Coded Allergies: No Known Allergies (Verified Allergy, Unknown, 09/24/17) Past Medical History ASHD Decreased LV function Obesity Renal cancer HTN HLD BPH Past Surgical History CABG 2013 Nephrectomy 2013 Prostate biopsy Reported Medications Reported Meds & Active Scripts Active Reported Aspirin 81 Mg Chew 81 Mg CHEW DAILY Allopurinol 100 Mg Tab 100 Mg PO DAILY Tamsulosin (Tamsulosin HCl) 0.4 Mg Cap 0.8 Mg PO HS Torsemide 20 Mg Tab 20 Mg PO DAILY Coreg (Carvedilol) 25 Mg Tab 25 Mg PO BID Active Ordered Medications Current Medications Medications (Trade) Dose Ordered Sig/Kareen Route Start Time Stop Time Status Last Admin (NS Flush) 2 ml UNSCH PRN IV FLUSH 09/24/17 19:30 (NS Flush) 2 ml BID IV FLUSH 09/24/17 21:00 09/25/17 09:26 (Tylenol) 650 mg Q4H PRN PO 09/24/17 19:30 (Zofran Inj) 4 mg Q6H PRN IVP 09/24/17 19:30 (Narcan Inj) 0.4 mg UNSCH PRN IV PUSH 09/24/17 19:30 (Milk Of Magnesia Liq) 30 ml Q12H PRN PO 09/24/17 19:30 (Senokot) 17.2 mg Q12H PRN PO 09/24/17 19:30 (Dulcolax Supp) 10 mg DAILY PRN RECTAL 09/24/17 19:30 (Lactulose Liq) 30 ml DAILY PRN PO 09/24/17 19:30 (Lasix Inj) 40 mg BID@ IV PUSH 09/25/17 09:00 09/25/17 09:26 (Zyloprim) 100 mg DAILY PO 09/25/17 09:00 09/25/17 09:26 (Coreg) 25 mg BID PO 09/24/17 21:00 09/25/17 09:28 (Flomax) 0.8 mg HS PO 09/24/17 21:00 09/24/17 22:38 (Lipitor) 80 mg HS PO 09/26/17 21:00 (Lovenox Inj) 40 mg Q24H SQ 09/25/17 10:15 UNV (Aspirin Chew) 325 mg DAILY CHEW 09/26/17 09:00 UNV (Imdur) 30 mg DAILY@07 PO 09/25/17 10:30 UNV Family History Father CAD Social History Social ETOH, nonsmoker (Matilde Ji) Physical Exam Vital Signs Vital Signs Date Time Temp Pulse Resp B/P (MAP) Pulse Ox O2 Delivery O2 Flow Rate FiO2 09/25/17 08:36 61 09/25/17 08:16 97.5 63 18 173/95 (121) 99 09/25/17 05:49 58 18 170/92 (118) 99 09/25/17 02:12 21 09/24/17 23:29 97.9 61 18 170/98 (122) 97 09/24/17 22:01 59 20 166/95 (118) 98 Room Air 09/24/17 21:56 98 Room Air 09/24/17 18:48 22 97 Room Air 09/24/17 17:03 97.9 66 16 188/102 (130) 95 Room Air Physical Exam GENERAL: Milddle age obese male, NAD SKIN: Warm and dry. HEAD: Atraumatic. Normocephalic. EYES: Pupils equal and round. No scleral icterus. No injection or drainage. ENT: No nasal bleeding or discharge. Mucous membranes pink and moist. NECK: Trachea midline. CARDIOVASCULAR: Regular rate and rhythm. RESPIRATORY: No accessory muscle use. Breath sounds equal bilaterally. Bilateral RALES GASTROINTESTINAL: Abdomen soft, non-tender, nondistended. MUSCULOSKELETAL: Extremities without clubbing, cyanosis. BLE edema 2+. NEUROLOGICAL: Awake and alert. No obvious cranial nerve deficits. Motor grossly within normal limits. Five out of 5 muscle strength in the arms and legs. Normal speech. PSYCHIATRIC: Appropriate mood and affect; insight and judgment normal. Laboratory Laboratory Tests Test 09/24/17 17:35 09/25/17 00:42 09/25/17 07:10 White Blood Count 6.2 7.0 Red Blood Count 5.12 5.01 Hemoglobin 15.6 15.0 Hematocrit 46.2 44.7 Mean Corpuscular Volume 90.3 89.3 Mean Corpuscular Hemoglobin 30.5 29.9 Mean Corpuscular Hemoglobin Concent 33.8 33.5 Red Cell Distribution Width 13.3 13.3 Platelet Count 127 120 Mean Platelet Volume 7.4 7.5 Neutrophils (%) (Auto) 54.1 50.6 Lymphocytes (%) (Auto) 29.6 33.3 Monocytes (%) (Auto) 11.0 10.1 Eosinophils (%) (Auto) 4.4 5.4 Basophils (%) (Auto) 0.9 0.6 Neutrophils # (Auto) 3.3 3.5 Lymphocytes # (Auto) 1.8 2.3 Monocytes # (Auto) 0.7 0.7 Eosinophils # (Auto) 0.3 0.4 Basophils # (Auto) 0.1 0.0 CBC Comment DIFF FINAL DIFF FINAL Differential Comment Prothrombin Time 11.5 Prothromb Time International Ratio 1.1 Activated Partial Thromboplast Time 28.7 Blood Urea Nitrogen 24 23 Creatinine 1.66 1.45 Random Glucose 79 91 Total Protein 7.1 Albumin 3.2 Calcium Level 9.0 8.3 Magnesium Level 2.1 Alkaline Phosphatase 111 Aspartate Amino Transf (AST/SGOT) 22 Alanine Aminotransferase (ALT/SGPT) 17 Total Bilirubin 0.5 Sodium Level 142 142 Potassium Level 3.9 3.3 Chloride Level 106 108 Carbon Dioxide Level 28.7 26.7 Anion Gap 7 7 Estimat Glomerular Filtration Rate 41 48 Total Creatine Kinase 97 105 84 Troponin I 0.22 0.54 0.78 B-Type Natriuretic Peptide 539 (Matilde Ji) Result Diagram: 09/25/17 0710 09/25/17 0710 Imaging Last 72 hours Impressions Lower Extremity Ultrasound 09/25/17 0000 Signed Impressions: Service Date/Time: September 09:53 - CONCLUSION: 1. Negative exam with no evidence of deep venous thrombosis. 2. Bilateral lower extremity edema. Salvador Graves MD Chest X-Ray 09/24/17 5432 Signed Impressions: Service Date/Time: Sunday, September 24, 2017 18:08 - CONCLUSION: Cardiomegaly. No pulmonary vascular engorgement or infiltrates. Best Pacheco Jr., MD (Matilde Ji) Assessment and Plan Assessment and Plan Elevated troponin in a patient with a history of ASHD and recent abnormal cardiac PET without chest pain Acute on chronic systolic CHF exacerbation Decreased LV function EF 44% 08/2017 Mild to moderate AI ASHD CABG X 3 (JIMENEZ ->diagonal, SVG -> Ramus, SVG -> OM) HTN HLD CKD with history of right nephrectomy BPH PE s/p IVC filter Thrombocytopenia plts 120 PLAN: Hold NPO tonight and check troponin in the morning. Pending clinical course we will complete cardiac cath Friday or Friday. The patient in not able to lay flat due to CHF today Plts are on the low end of normal. We will continue DVT prophylaxis Lovenox Start Imdur and Hydralazine Continue Coreg, ASA 325 and statin Nephrology following The patient was seen and evaluated by Dr Alexandre who completed face to face encounter and physical exam and participated in evaluation and management (Matilde Ji) Assessment and Plan The exam, history, and the medical decision-making described in the above note were completed with the assistance of the mid-level provider. I reviewed and agree with the findings presented. I attest that I had a [id number] encounter with the patient on the same day, and personally performed and documented my assessment and findings in the medical record. will improve chf and consider cath. (Maddie Alexandre MD) Matilde Ji Sep 25, 2017 10:56 Maddie Alexandre MD Sep 26, 2017 14:14
[2017-09-25] MEDS ORDERED: hydrALAZINE HCL 25 MG TAB PO SCH (11:00)
[2017-09-25] MEDS: ISOSORBIDE MONONITRATE 30 MG TAB PO SCH (12:09)
[2017-09-25] MEDS: ENOXAPARIN SODIUM 40 MG/0.4 ML SYRINGE SQ SCH (12:09)
[2017-09-25] MEDS ORDERED: HEPARIN SODIUM - IV 10,000 UNITS/10 ML VIAL IV PUSH PRN ×2 (15:00)
[2017-09-25] MEDS ORDERED: POTASSIUM CHLORIDE 10 MEQ CONTROLLED RELEASE TAB PO ONE (15:00)
[2017-09-25] MEDS: TAMSULOSIN HCL 0.4 MG CAP PO SCH (22:14)
[2017-09-25] MEDS: hydrALAZINE HCL 25 MG TAB PO SCH (22:14)
[2017-09-25] MEDS ORDERED: ZOLPIDEM TARTRATE 5 MG TAB PO PRN (23:45)
[2017-09-26] VITALS (13 sets, daily range): BP systolic 119–188; BP diastolic 56–97; PULSE 59–72; RESP 16–20; TEMP 97.8–98.5; O2SAT 95–98
[2017-09-26] MEDS: hydrALAZINE HCL 25 MG TAB PO SCH ×3 (05:06→22:17)
[2017-09-26] MEDS: ISOSORBIDE MONONITRATE 30 MG TAB PO SCH (06:35)
--- NOTE | 2017-09-26 08:55 | HHI.NPPN ---
Subjective Complaints: Obesity General Problems: Edema Renal Failure: Chronic History of Present Illness Patient is a 72-year-old male who presents to ER for evaluation of CHF exacerbation. Patient has a past medical history significant for CHF, CAD, hypertension and history of renal cell carcinoma. S/P nephrectomy in 2012 in [facility]. The patient was being seen by Dr. Alexandre in his office when he was sent to the emergency department for diuresis and further evaluation. Patient has 2-3 + lower extremity edema and crackles noted in lungs. Per patient Dr. Alexandre plans on doing a heart cath this admission. Creatinine is at 1.45 and GFR 48ml/min. Is not followed by a catholic priest locally. Additional Remarks Patient is resting comfortably this morning. Denies any SOB and reports that chest tightness is improved. (Janeth Huber) Review of Systems Respiratory Respiratory Remarks denies SOB (Janeth Huber) Cardiovascular Cardiac Remarks Denies CP (Janeth Huber) Gastrointestinal GI Remarks Denies abdominal pain (Janeth Huber) Genitourinary Remarks denies dysuria (Janeth Huber) Objective Data Data Vital Signs Date Time Temp Pulse Resp B/P (MAP) Pulse Ox O2 Delivery O2 Flow Rate FiO2 09/26/17 07:52 98.0 72 20 129/56 (80) 95 09/26/17 05:50 21 09/26/17 04:29 97.9 60 16 138/69 (92) 97 09/26/17 04:06 59 09/26/17 00:08 64 09/26/17 00:01 97.8 63 18 156/87 (110) 97 09/25/17 22:10 62 20 98 09/25/17 21:03 97.7 61 16 135/73 (93) 97 09/25/17 20:11 61 09/25/17 16:40 97.5 62 19 128/70 (89) 97 09/25/17 12:35 97.3 62 18 137/76 (96) 97 09/25/17 12:05 58 09/25/17 11:54 99 21 (Janeth Huber) -: 09/25/17 0710 09/25/17 0710 Imaging Last Impressions Lower Extremity Ultrasound 09/25/17 0000 Signed Impressions: Service Date/Time: September 09:53 - CONCLUSION: 1. Negative exam with no evidence of deep venous thrombosis. 2. Bilateral lower extremity edema. Salvador Graves MD Chest X-Ray 09/24/17 1717 Signed Impressions: Service Date/Time: Sunday, September 24, 2017 18:08 - CONCLUSION: Cardiomegaly. No pulmonary vascular engorgement or infiltrates. Best Pacheco Jr., MD (GellermannStefaniJaneth M[employer]) Physical Exam General Appearance: No Acute Distress, Comfortable, Obese (GellermannStefaniJaneth M. [employer] SAL[employer]) Eyes Eye Exam: Pupils Equal (GellermannJaneth M. [employer] SAL[employer]) Pulmonary Resp Exam: Breath Sounds Equal, No Distress, Decreased Bases (GellermannStefaniJaneth M[employer] SAL[employer]) Cardiology CV Exam: Regular (GellermannStefaniJaneth M[employer]ANT) Chest/Breast Chest/Breast Exam: Symmetry (GellermannStefaniJaneth M. [employer] SAL[employer]ANT) Gastrointestinal/Abdomen GI Exam: Soft, Non-Tender, Bowel Sounds Present (GellermannStefaniJaneth M. [employer] SAL[employer]ANT) Genitourinary Exam: Flank Non-Tender (GellermannStefaniJaneth M. [employer] SAL[employer]ANT) Integumentary Skin Exam: Clear, Warm, Dry (GellermannJaneth M. [employer] SAL[employer]ANT) Extremeties Extremities Exam: Pitting Edema (TexlermannJaneth M. [employer] SAL[employer]ANT) Neurologic Neuro Exam: Alert, Awake (TexlerStefani mcginnisne M. [employer] SAL[employer]) Psychiatric Psych Exam: Appropriate Responses (GellerStefani mcginnisne M[employer]) Assessment/Plan Problem List: (1) CKD (chronic kidney disease) ICD Codes: N18.9 - Chronic kidney disease, unspecified Plan: Patient is s/p nephrectomy 2012 for renal cell carcinoma 2-3+ pitting edema in lower extremity improving Good urine output Low sodium diet recommended. Plan Continue Lasix 40 mg IV BID Monitor urinary output and weight Will monitor renal function Avoid nephrotoxins. If need Cardiac Cath, will have 10-15% risk for contrast Nephropathy. (2) CHF exacerbation ICD Codes: I50.9 - Heart failure, unspecified Status: Acute Plan: On room air Continue IV lasix (3) HTN (hypertension) ICD Codes: I10 - Essential (primary) hypertension Plan: Well controlled Continue coreg, isosorbide, and hydralazine (4) Elevated troponin ICD Codes: R74.8 - Abnormal levels of other serum enzymes Status: Acute Plan: Chest tightness improving. Serial troponin with trending downwards (Janeth Huber) Problem List: (1) CKD (chronic kidney disease) ICD Codes: N18.9 - Chronic kidney disease, unspecified Plan: Patient is s/p nephrectomy 2012 for renal cell carcinoma 2-3+ pitting edema in lower extremity improving Good urine output Low sodium diet recommended. Plan Continue Lasix 40 mg IV BID Monitor urinary output and weight Will monitor renal function Avoid nephrotoxins. If need Cardiac Cath, will have 10-15% risk for contrast Nephropathy. Patient seen and examined, agree with above. Has more edema, on Lasix and Metolazone added. Creatinine is stable. (2) CHF exacerbation ICD Codes: I50.9 - Heart failure, unspecified Status: Acute Plan: On room air Continue IV lasix (3) HTN (hypertension) ICD Codes: I10 - Essential (primary) hypertension Plan: Well controlled Continue coreg, isosorbide, and hydralazine (4) Elevated troponin ICD Codes: R74.8 - Abnormal levels of other serum enzymes Status: Acute Plan: Chest tightness improving. Serial troponin with trending downwards (Jessi Mcmahon MD) Problem Qualifiers (1) CKD (chronic kidney disease): Qualified Codes: N18.3 - Chronic kidney disease, stage 3 (moderate) (2) CHF exacerbation: Qualified Codes: I50.9 - Heart failure, unspecified Janeth Huber Sep 26, 2017 08:55 Jessi Mcmahon MD Sep 26, 2017 15:45
--- NOTE | 2017-09-26 09:15 | HHI.PR ---
Subjective Remarks Follow up for elevated troponins, congestive heart failure. Patient is on room air, doing well. No fever, chills. Orthopnea is improving. Objective Vitals Vital Signs Date Time Temp Pulse Resp B/P (MAP) Pulse Ox O2 Delivery O2 Flow Rate FiO2 09/26/17 07:52 98.0 72 20 129/56 (80) 95 09/26/17 05:50 21 09/26/17 04:29 97.9 60 16 138/69 (92) 97 09/26/17 04:06 59 09/26/17 00:08 64 09/26/17 00:01 97.8 63 18 156/87 (110) 97 09/25/17 22:10 62 20 98 09/25/17 21:03 97.7 61 16 135/73 (93) 97 09/25/17 20:11 61 09/25/17 16:40 97.5 62 19 128/70 (89) 97 09/25/17 12:35 97.3 62 18 137/76 (96) 97 09/25/17 12:05 58 09/25/17 11:54 99 21 I/O 09/25/17 09/25/17 09/25/17 09/26/17 09/26/17 09/26/17 07:00 15:00 23:00 07:00 15:00 23:00 Intake Total 720 ml 1664 ml Output Total 1200 ml 350 ml Balance -480 ml 1314 ml Intake Oral 720 ml 1664 ml Output Urine Total 1200 ml 350 ml Result Diagram: 09/25/17 0710 09/25/17 0710 Imaging Last Impressions Lower Extremity Ultrasound 09/25/17 0000 Signed Impressions: Service Date/Time: September 09:53 - CONCLUSION: 1. Negative exam with no evidence of deep venous thrombosis. 2. Bilateral lower extremity edema. Salvador Graves MD Chest X-Ray 09/24/17 [id number] Signed Impressions: Service Date/Time: Sunday, September 24, 2017 18:08 - CONCLUSION: Cardiomegaly. No pulmonary vascular engorgement or infiltrates. Best Pacheco Jr., MD Objective Remarks GENERAL: Alert, oriented x 3, NAD. SKIN: Warm and dry. HEAD: Normocephalic. EYES: No scleral icterus. No injection or drainage. NECK: Supple, trachea midline. No JVD or lymphadenopathy. CARDIOVASCULAR: Regular rate and rhythm without murmurs, gallops, or rubs. Bibasilar mild crackles. RESPIRATORY: Breath sounds equal bilaterally. No accessory muscle use. GASTROINTESTINAL: Abdomen soft, non-tender, nondistended. MUSCULOSKELETAL: No cyanosis. 2+ lower ext edema. BACK: Nontender without obvious deformity. No CVA tenderness. Procedures None. A/P Problem List: (1) CKD (chronic kidney disease) stage 3, GFR 30-59 ml/min ICD Code: N18.3 - Chronic kidney disease, stage 3 (moderate) (2) CHF exacerbation ICD Code: I50.9 - Heart failure, unspecified Status: Acute (3) Elevated troponin ICD Code: R74.8 - Abnormal levels of other serum enzymes Status: Acute Assessment and Plan 72-year-old male with a past medical history significant for CHF, CAD, hypertension and history of renal cell carcinoma status post nephrectomy presents to the emergency department for further evaluation of CHF exacerbation. The patient was being seen by Dr. Alexandre in his office when he was sent to the emergency department for diuresis and further evaluation. He endorses intermittent chest tightness for 2 months although denies any current chest pain or pressure. - NSTEMI - Acute exacerbation of systolic CHF - EF 44% in 08/2017 per cardiology. - Troponins elevated 0.22, 0.54, 0.78. BNP 539. Patient reported intermittent chest pain in the last two months. - Troponin is down to 0.59. Cardiology is planning to perform Cath on 2017. - Continue Lipitor 80mg QHS. - Increase Lasix from 40 to 60mg IV BID with metolazone. Bumex IV is not available. - Consider Torsemide 20mg PO BID upon discharge. - CAD s/p CABG X 3v. - continue Aspirin, Carvedilol, Lasix, Hydralazine, Imdur. - Hypokalemia - CKD Stage III - Hx of Renal cell carcinoma s/p right nephrectomy. - continue 20meQ Qday. - Avoid nephrotoxins. Hx of PE - patient has IVC filter. Full code. Lovenox for DVT prophylaxis. Discussed with Cardiology. Problem Qualifiers (1) CHF exacerbation: Qualified Codes: I50.9 - Heart failure, unspecified Caren Norman DO Sep 26, 2017 09:14
[2017-09-26] MEDS: POTASSIUM CHLORIDE 20 MEQ CONTROLLED RELEASE TAB PO SCH (09:24)
[2017-09-26] MEDS: CARVEDILOL 12.5 MG TAB PO SCH ×2 (09:25→22:17)
[2017-09-26] MEDS: ALLOPURINOL 100 MG TAB PO SCH (09:25)
[2017-09-26] MEDS: ASPIRIN 81 MG CHEW TAB CHEW SCH (09:26)
[2017-09-26] MEDS: SODIUM CHLORIDE 0.9% FLUSH 10 ML FLUSH IV FLUSH SCH ×2 (09:26→22:17)
[2017-09-26] MEDS: FUROSEMIDE 40 MG/4 ML VIAL IV PUSH SCH (09:26)
--- NOTE | 2017-09-26 12:19 | ECHRPT ---
Indication: HEART FAILURE CONCLUSIONS Technically very difficult study making assessment of left ventricular function suboptimal. Grossly , left ventricular function appears at least moderately reduced. Regional wall motion abnormalities cannot be excluded. Left ventricular size may be mild to moderately dilated. Mild mitral valve regurgitation. Mild aortic valve regurgitation. BP: 173 / 95 HR: 61 Rhythm: MEASUREMENTS (Male / Female) Normal Values Technical Quality:Technically difficult study 2D ECHO LV Diastolic Diameter PLAX 5.2 cm 4.2 - 5.9 / 3.9 - 5.3 cm LV Systolic Diameter PLAX 4.3 cm IVS Diastolic Thickness 1.1 cm 0.6 - 1.0 / 0.6 - 0.9 cm LVPW Diastolic Thickness 0.9 cm 0.6 - 1.0 / 0.6 - 0.9 cm LV Relative Wall Thickness 0.4 M-MODE Aortic Root Diameter MM 3.8 cm AV Cusp Separation MM 2.3 cm DOPPLER Mitral E Point Velocity 37.5 cm/s Mitral A Point Velocity 63.7 cm/s Mitral E to A Ratio 0.6 TR Peak Velocity 175.0 cm/s TR Peak Gradient 12.3 mmHg FINDINGS LEFT VENTRICLE Technically very difficult study making assessment of left ventricular function suboptimal. Grossly , left ventricular function appears at least moderately reduced. Regional wall motion abnormalities cannot be excluded. Left ventricular size may be mild to moderately dilated. RIGHT VENTRICLE Normal right ventricular size and systolic function. LEFT ATRIUM The left atrial size is normal. RIGHT ATRIUM The right atrial size is normal. ATRIAL SEPTUM Normal atrial septal thickness without atrial level shunting by limited color doppler interrogation. AORTA The aortic root and proximal ascending aorta are normal in size on limited imaging. MITRAL VALVE Mild mitral valve regurgitation. AORTIC VALVE Mild aortic valve regurgitation. TRICUSPID VALVE Structurally normal tricuspid valve. No tricuspid valve stenosis or regurgitation. PULMONARY VALVE The pulmonary valve is not well visualized. VESSELS The inferior vena cava is normal in size. PERICARDIUM No pericardial effusion. Obi Moses MD (Electronically Signed) Final Date:26 September 2017 12:18
[2017-09-26] MEDS: ENOXAPARIN SODIUM 40 MG/0.4 ML SYRINGE SQ SCH (12:24)
--- NOTE | 2017-09-26 14:29 | PD.CARD.PN ---
Subjective Subjective Remarks persistent SOB with exertion and BLE edema. Lung rales globally. Troponin trending down. Unable to provide EF on echo. LV function decreased. No CP. No BMP today. Weight is only SLIGHTLY decreased (Matilde Ji) Objective Medications Current Medications Medications (Trade) Dose Ordered Sig/Kareen Route Start Time Stop Time Status Last Admin (NS Flush) 2 ml UNSCH PRN IV FLUSH 09/24/17 19:30 (NS Flush) 2 ml BID IV FLUSH 09/24/17 21:00 09/26/17 09:26 (Tylenol) 650 mg Q4H PRN PO 09/24/17 19:30 (Zofran Inj) 4 mg Q6H PRN IVP 09/24/17 19:30 (Narcan Inj) 0.4 mg UNSCH PRN IV PUSH 09/24/17 19:30 (Milk Of Magnesia Liq) 30 ml Q12H PRN PO 09/24/17 19:30 (Senokot) 17.2 mg Q12H PRN PO 09/24/17 19:30 (Dulcolax Supp) 10 mg DAILY PRN RECTAL 09/24/17 19:30 (Lactulose Liq) 30 ml DAILY PRN PO 09/24/17 19:30 (Lasix Inj) 40 mg BID@, IV PUSH 09/25/17 09:00 09/26/17 09:26 (Zyloprim) 100 mg DAILY PO 09/25/17 09:00 09/26/17 09:25 (Coreg) 25 mg BID PO 09/24/17 21:00 09/26/17 09:25 (Flomax) 0.8 mg HS PO 09/24/17 21:00 09/25/17 22:14 (Lipitor) 80 mg HS PO 09/26/17 21:00 (Lovenox Inj) 40 mg Q24H SQ 09/25/17 12:00 09/26/17 12:24 (Aspirin Chew) 325 mg DAILY CHEW 09/26/17 09:00 09/26/17 09:26 (Imdur) 30 mg DAILY@07 PO 09/25/17 10:30 09/26/17 06:35 (KCl) 20 meq DAILY PO 09/26/17 09:00 09/26/17 09:24 (Apresoline) 25 mg Q8H PO 09/25/17 20:00 09/26/17 05:06 (Ambien) 5 mg HS PRN PO 09/25/17 23:45 09/26/17 00:01 Vital Signs / I&O Vital Signs Date Time Temp Pulse Resp B/P (MAP) Pulse Ox O2 Delivery O2 Flow Rate FiO2 09/26/17 10:56 97.9 63 18 119/69 (86) 95 09/26/17 09:49 98 21 09/26/17 07:52 98.0 72 20 129/56 (80) 95 09/26/17 05:50 21 09/26/17 04:29 97.9 60 16 138/69 (92) 97 09/26/17 04:06 59 09/26/17 00:08 64 09/26/17 00:01 97.8 63 18 156/87 (110) 97 09/25/17 22:10 62 20 98 09/25/17 21:03 97.7 61 16 135/73 (93) 97 09/25/17 20:11 61 09/25/17 16:40 97.5 62 19 128/70 (89) 97 I/O 09/25/17 09/25/17 09/25/17 09/26/17 09/26/17 09/26/17 07:00 15:00 23:00 07:00 15:00 23:00 Intake Total 720 ml 1664 ml Output Total 1200 ml 350 ml 400 ml Balance -480 ml 1314 ml -400 ml Intake Oral 720 ml 1664 ml Output Urine Total 1200 ml 350 ml 400 ml Physical Exam GENERAL: Middle age male sitting up in the chair SKIN: Warm and dry. HEAD: Normocephalic. EYES: No scleral icterus. No injection or drainage. NECK: Supple, trachea midline. CARDIOVASCULAR: Regular rate and rhythm without murmurs, gallops, or rubs. RESPIRATORY: Global rales throughout GASTROINTESTINAL: Abdomen soft, non-tender, nondistended. MUSCULOSKELETAL: No cyanosis, 2+ BLE edema BACK: Nontender without obvious deformity. Laboratory Laboratory Tests Test 09/26/17 03:52 Troponin I 0.59 NG/ML Imaging Last 72 hours Impressions Lower Extremity Ultrasound 09/25/17 0000 Signed Impressions: Service Date/Time: September 09:53 - CONCLUSION: 1. Negative exam with no evidence of deep venous thrombosis. 2. Bilateral lower extremity edema. Salvador Graves MD Chest X-Ray 09/24/17 1717 Signed Impressions: Service Date/Time: Sunday, September 24, 2017 18:08 - CONCLUSION: Cardiomegaly. No pulmonary vascular engorgement or infiltrates. 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 The patient needs continued aggressive diuresis with careful renal follow up. He needs additional diuresis. The patient is still in CHF exacerbation. Continue Imdur, hydralazine, Coreg, ASA 325 and statin Nephrology following The patient was seen and evaluated by Dr Alexandre who completed face to face encounter and physical exam and participated in evaluation and management (Matilde Ji) Assessment and Plan The exam, history, and the medical decision-making described in the above note were completed with the assistance of the mid-level provider. I reviewed and agree with the findings presented. I attest that I had a [id number] encounter with the patient on the same day, and personally performed and documented my assessment and findings in the medical record. Lenin yeuressamara over weekend still has bilateral rales (Maddie Alexandre MD) Matilde Ji Sep 26, 2017 14:29 Maddie Alexandre MD Sep 29, 2017 14:31
[2017-09-26] MEDS: FUROSEMIDE 100 MG/10 ML VIAL IV PUSH SCH (18:38)
[2017-09-26 21:17] LABS: BICARBONATE 26.8 MEQ/L (21.0-32.0); CALCIUM 8.8 MG/DL (8.5-10.1); CREATININE 1.99 MG/DL (0.60-1.30)
[2017-09-26] MEDS: ATORVASTATIN 80 MG TAB PO SCH (22:17)
[2017-09-26] MEDS: TAMSULOSIN HCL 0.4 MG CAP PO SCH (22:22)
[2017-09-27] VITALS (12 sets, daily range): BP systolic 116–138; BP diastolic 62–80; PULSE 58–70; RESP 17–18; TEMP 97.5–98.8; O2SAT 95–99
[2017-09-27] MEDS: hydrALAZINE HCL 25 MG TAB PO SCH ×3 (04:49→22:31)
[2017-09-27 07:26] LABS: BICARBONATE 24.2 MEQ/L (21.0-32.0); CALCIUM 8.4 MG/DL (8.5-10.1); CREATININE 1.76 MG/DL (0.60-1.30)
[2017-09-27] MEDS: ISOSORBIDE MONONITRATE 30 MG TAB PO SCH (08:06)
[2017-09-27] MEDS: METOLAZONE 5 MG TAB PO SCH (10:29)
[2017-09-27] MEDS: POTASSIUM CHLORIDE 20 MEQ CONTROLLED RELEASE TAB PO SCH (10:29)
[2017-09-27] MEDS: ASPIRIN 81 MG CHEW TAB CHEW SCH (10:29)
[2017-09-27] MEDS: ALLOPURINOL 100 MG TAB PO SCH (10:30)
[2017-09-27] MEDS: CARVEDILOL 12.5 MG TAB PO SCH ×2 (10:30→22:27)
[2017-09-27] MEDS: SODIUM CHLORIDE 0.9% FLUSH 10 ML FLUSH IV FLUSH SCH ×2 (10:30→22:31)
[2017-09-27] MEDS: FUROSEMIDE 100 MG/10 ML VIAL IV PUSH SCH ×2 (10:31→18:39)
--- NOTE | 2017-09-27 11:29 | HHI.PR ---
Subjective Remarks Follow up visit elevated troponin, CHF. Patient seen and examined today sitting in bed. On room air. Denies any shortness of breath, dyspnea. Denies any chest pain, palpitations. Reports no BM 2 days. States he has been sitting up and getting out of bed without any dizziness, headaches, chest pain or palpitations. Objective Vitals Vital Signs Date Time Temp Pulse Resp B/P (MAP) Pulse Ox O2 Delivery O2 Flow Rate FiO2 09/27/17 09:26 95 21 09/27/17 08:19 97.5 64 18 137/80 (99) 95 09/27/17 03:52 98.8 70 17 129/70 (89) 96 09/27/17 03:41 66 09/27/17 00:03 66 09/26/17 23:42 98 21 09/26/17 23:26 98.5 69 16 168/94 (118) 98 09/26/17 22:15 20 188/97 (127) 09/26/17 20:54 98.4 70 16 173/79 (110) 98 09/26/17 20:11 69 09/26/17 15:28 97.8 64 18 146/81 (102) 97 I/O 09/26/17 09/26/17 09/26/17 09/27/17 09/27/17 09/27/17 07:00 15:00 23:00 07:00 15:00 23:00 Intake Total 1664 ml 750 ml Output Total 350 ml 400 ml 750 ml 950 ml Balance 1314 ml -400 ml -750 ml -200 ml Intake Oral 1664 ml 750 ml Output Urine Total 350 ml 400 ml 750 ml 950 ml Result Diagram: 09/25/17 0710 09/27/17 0558 Imaging Last Impressions Lower Extremity Ultrasound 09/25/17 0000 Signed Impressions: Service Date/Time: September 09:53 - CONCLUSION: 1. Negative exam with no evidence of deep venous thrombosis. 2. Bilateral lower extremity edema. Salvador Graves MD Chest X-Ray 09/24/17 [id number] Signed Impressions: Service Date/Time: Sunday, September 24, 2017 18:08 - CONCLUSION: Cardiomegaly. No pulmonary vascular engorgement or infiltrates. Best Pacheco Jr., MD Objective Remarks GENERAL: This is a well-nourished, well-developed patient, in no apparent distress. SKIN: Warm and dry HEENT: Normocephalic. Pupils equal round and reactive. Nose without bleeding. Airway patent. NECK: Trachea midline. CARDIOVASCULAR: Regular rate and rhythm without murmurs, gallops, or rubs. RESPIRATORY: No wheezes, rhonchi. Mild rales bilateral lower lobe. GASTROINTESTINAL: Abdomen soft, non-tender, nondistended. Bowel Sounds hypoactive. MUSCULOSKELETAL: Extremities without clubbing, cyanosis, or edema. NEUROLOGICAL: Awake and alert. Oriented to time, place, person. No focal neuro deficit. Moves all extremities. Normal speech. Procedures None. A/P Problem List: (1) CKD (chronic kidney disease) stage 3, GFR 30-59 ml/min ICD Code: N18.3 - Chronic kidney disease, stage 3 (moderate) (2) CHF exacerbation ICD Code: I50.9 - Heart failure, unspecified Status: Acute (3) Elevated troponin ICD Code: R74.8 - Abnormal levels of other serum enzymes Status: Acute Assessment and Plan 72-year-old male with a past medical history significant for CHF, CAD, hypertension and history of renal cell carcinoma status post nephrectomy presents to the emergency department for further evaluation of CHF exacerbation. The patient was being seen by Dr. Alexandre in his office when he was sent to the emergency department for diuresis and further evaluation. He endorses intermittent chest tightness for 2 months although denies any current chest pain or pressure. NSTEMI Acute exacerbation of systolic CHF - EF 44% in 08/2017 per cardiology. - Troponins elevated 0.22, 0.54, 0.78. BNP 539. Patient reported intermittent chest pain in the last two months. - Troponin is down to 0.59. Cardiology is planning to perform Cath on 2017. - Continue Lipitor 80mg QHS. - Increase Lasix from 40 to 60mg IV BID with metolazone. Bumex IV is not available. - Consider Torsemide 20mg PO BID upon discharge. - Reports diuresis reports to diurese well. CAD s/p CABG X 3v. - continue Aspirin, Carvedilol, Lasix, Hydralazine, Imdur. Hypokalemia CKD Stage III Hx of Renal cell carcinoma s/p right nephrectomy. - continue 20meQ Qday. - Avoid nephrotoxins. Hx of PE - patient has IVC filter. Constipation - Milk of magnesia. Bowel regimen. - Monitor BM Full code. Lovenox for DVT prophylaxis. Discussed with Cardiology. Discharge Planning Plan for cardiac catheter on Friday. Problem Qualifiers (1) CHF exacerbation: Qualified Codes: I50.9 - Heart failure, unspecified Ivory Grajeda Sep 27, 2017 11:29
--- NOTE | 2017-09-27 11:35 | PD.CARD.PN ---
Subjective Subjective Remarks FEELS BETTER NO COMPLAINTS OF CHEST PAIN OR SOB Objective Medications Current Medications Medications (Trade) Dose Ordered Sig/Kareen Route Start Time Stop Time Status Last Admin (NS Flush) 2 ml UNSCH PRN IV FLUSH 09/24/17 19:30 (NS Flush) 2 ml BID IV FLUSH 09/24/17 21:00 09/27/17 10:30 (Tylenol) 650 mg Q4H PRN PO 09/24/17 19:30 (Zofran Inj) 4 mg Q6H PRN IVP 09/24/17 19:30 (Narcan Inj) 0.4 mg UNSCH PRN IV PUSH 09/24/17 19:30 (Milk Of Magnesia Liq) 30 ml Q12H PRN PO 09/24/17 19:30 09/27/17 10:59 (Senokot) 17.2 mg Q12H PRN PO 09/24/17 19:30 (Dulcolax Supp) 10 mg DAILY PRN RECTAL 09/24/17 19:30 (Lactulose Liq) 30 ml DAILY PRN PO 09/24/17 19:30 (Zyloprim) 100 mg DAILY PO 09/25/17 09:00 09/27/17 10:30 (Coreg) 25 mg BID PO 09/24/17 21:00 09/27/17 10:30 (Flomax) 0.8 mg HS PO 09/24/17 21:00 09/26/17 22:22 (Lipitor) 80 mg HS PO 09/26/17 21:00 09/26/17 22:17 (Lovenox Inj) 40 mg Q24H SQ 09/25/17 12:00 09/26/17 12:24 (Aspirin Chew) 325 mg DAILY CHEW 09/26/17 09:00 09/27/17 10:29 (Imdur) 30 mg DAILY@07 PO 09/25/17 10:30 09/27/17 08:06 (KCl) 20 meq DAILY PO 09/26/17 09:00 09/27/17 10:29 (Apresoline) 25 mg Q8H PO 09/25/17 20:00 09/27/17 04:49 (Ambien) 5 mg HS PRN PO 09/25/17 23:45 09/26/17 00:01 (Lasix Inj) 60 mg BID@09,18 IV PUSH 09/26/17 18:00 09/27/17 10:31 (Zaroxolyn) 5 mg DAILY PO 09/27/17 09:00 09/27/17 10:29 Vital Signs / I&O Vital Signs Date Time Temp Pulse Resp B/P (MAP) Pulse Ox O2 Delivery O2 Flow Rate FiO2 09/27/17 09:26 95 21 09/27/17 08:19 97.5 64 18 137/80 (99) 95 09/27/17 03:52 98.8 70 17 129/70 (89) 96 09/27/17 03:41 66 09/27/17 00:03 66 09/26/17 23:42 98 21 09/26/17 23:26 98.5 69 16 168/94 (118) 98 09/26/17 22:15 20 188/97 (127) 09/26/17 20:54 98.4 70 16 173/79 (110) 98 09/26/17 20:11 69 09/26/17 15:28 97.8 64 18 146/81 (102) 97 I/O 09/26/17 09/26/17 09/26/17 09/27/17 09/27/17 09/27/17 07:00 15:00 23:00 07:00 15:00 23:00 Intake Total 1664 ml 750 ml Output Total 350 ml 400 ml 750 ml 950 ml Balance 1314 ml -400 ml -750 ml -200 ml Intake Oral 1664 ml 750 ml Output Urine Total 350 ml 400 ml 750 ml 950 ml Physical Exam NAD ANICTERIC, MARGRET THICK NECK, NO BRUIT BIBASILAR CRACKLES ABD SOFT AND NON TENDER EXTREMITIES WITH 3+ EDEMA BILAT Laboratory Laboratory Tests Test 09/26/17 20:21 09/27/17 05:58 Blood Urea Nitrogen 32 MG/DL 29 MG/DL Creatinine 1.99 MG/DL 1.76 MG/DL Random Glucose 134 MG/DL 95 MG/DL Calcium Level 8.8 MG/DL 8.4 MG/DL Sodium Level 140 MEQ/L 143 MEQ/L Potassium Level 3.8 MEQ/L 3.6 MEQ/L Chloride Level 106 MEQ/L 109 MEQ/L Carbon Dioxide Level 26.8 MEQ/L 24.2 MEQ/L Anion Gap 7 MEQ/L 10 MEQ/L Estimat Glomerular Filtration Rate 33 ML/MIN 38 ML/MIN B-Type Natriuretic Peptide 337 PG/ML Assessment and Plan Assessment and Plan STABLE CVS VOLUME OVERLOAD CHF CARDIOMYOPATHY AI CRI PLAN: MEDICATIONS REVIEWED. CONTINUE NEGATIVE FLUID BALANCE SBP AND CREATININE TOLERATES CATH FRIDAY Joe Segundo MD Sep 27, 2017 11:35
[2017-09-27] MEDS: ENOXAPARIN SODIUM 40 MG/0.4 ML SYRINGE SQ SCH (12:17)
--- NOTE | 2017-09-27 19:52 | HHI.NPPN ---
Subjective Complaints: Obesity General Problems: Edema Renal Failure: Chronic History of Present Illness Patient is a 72-year-old male who presents to ER for evaluation of CHF exacerbation. Patient has a past medical history significant for CHF, CAD, hypertension and history of renal cell carcinoma. S/P nephrectomy in 2012 in [facility]. The patient was being seen by Dr. Alexandre in his office when he was sent to the emergency department for diuresis and further evaluation. Patient has 2-3 + lower extremity edema and crackles noted in lungs. Per patient Dr. Alexandre plans on doing a heart cath this admission. Creatinine is at 1.45 and GFR 48ml/min. Is not followed by a director engineering locally. Additional Remarks Patient is resting comfortably Denies any SOB and reports that chest tightness is improved. Review of Systems Respiratory Respiratory Remarks denies SOB Cardiovascular Cardiac Remarks Denies CP Gastrointestinal GI Remarks Denies abdominal pain Genitourinary Remarks denies dysuria Objective Data Data 09/27/17 09/28/17 19:00 07:00 Intake Total 406 ml Output Total 1075 ml 450 ml Balance -669 ml -450 ml Intake Oral 390 ml IV Total 16 ml Output Urine Total 1075 ml 450 ml Vital Signs Date Time Temp Pulse Resp B/P (MAP) Pulse Ox O2 Delivery O2 Flow Rate FiO2 09/27/17 19:39 98.1 64 18 133/71 (91) 96 09/27/17 18:51 67 09/27/17 16:05 97.9 64 18 116/70 (85) 99 09/27/17 12:30 98.3 67 18 117/71 (86) 95 09/27/17 09:26 95 21 09/27/17 08:19 97.5 64 18 137/80 (99) 95 09/27/17 08:00 58 09/27/17 03:52 98.8 70 17 129/70 (89) 96 09/27/17 03:41 66 09/27/17 00:03 66 09/26/17 23:42 98 21 09/26/17 23:26 98.5 69 16 168/94 (118) 98 09/26/17 22:15 20 188/97 (127) 09/26/17 20:54 98.4 70 16 173/79 (110) 98 2/2/18 20:11 69 -: 09/25/17 0710 09/27/17 0558 Physical Exam General Appearance: No Acute Distress, Comfortable, Obese Eyes Eye Exam: Pupils Equal Pulmonary Resp Exam: Breath Sounds Equal, No Distress, Decreased Bases Cardiology CV Exam: Regular Chest/Breast Chest/Breast Exam: Symmetry Gastrointestinal/Abdomen GI Exam: Soft, Non-Tender, Bowel Sounds Present Genitourinary Exam: Flank Non-Tender Integumentary Skin Exam: Clear, Warm, Dry Extremeties Extremities Exam: Pitting Edema Neurologic Neuro Exam: Alert, Awake Psychiatric Psych Exam: Appropriate Responses Assessment/Plan Problem List: (1) CKD (chronic kidney disease) ICD Codes: N18.9 - Chronic kidney disease, unspecified Plan: Patient is s/p nephrectomy 2012 for renal cell carcinoma 2-3+ pitting edema in lower extremity improving Good urine output Low sodium diet recommended. Plan Continue Lasix 60 mg IV BID Monitor urinary output and weight Will monitor renal function Avoid nephrotoxins. If need Cardiac Cath, will have 10-15% risk for contrast Nephropathy. Patient seen and examined, agree with above. Has more edema, on Lasix and Metolazone added. Creatinine is stable. seen this evening edema better cr 1.76 (2) CHF exacerbation ICD Codes: I50.9 - Heart failure, unspecified Status: Acute Plan: On room air Continue IV lasix (3) HTN (hypertension) ICD Codes: I10 - Essential (primary) hypertension Plan: Well controlled Continue coreg, isosorbide, and hydralazine (4) Elevated troponin ICD Codes: R74.8 - Abnormal levels of other serum enzymes Status: Acute Plan: Chest tightness improving. Serial troponin with trending downwards Problem Qualifiers (1) CKD (chronic kidney disease): Qualified Codes: N18.3 - Chronic kidney disease, stage 3 (moderate) (2) CHF exacerbation: Qualified Codes: I50.9 - Heart failure, unspecified Marilee Odonnell MD Sep 27, 2017 19:51
[2017-09-27] MEDS: DOCUSATE SODIUM 50 MG/SENNA 8.6 MG TAB PO SCH (22:26)
[2017-09-27] MEDS: TAMSULOSIN HCL 0.4 MG CAP PO SCH (22:26)
[2017-09-27] MEDS: ATORVASTATIN 80 MG TAB PO SCH (22:27)
[2017-09-28] VITALS (8 sets, daily range): BP systolic 107–168; BP diastolic 56–89; PULSE 60–87; RESP 17–20; TEMP 97.8–98.8; O2SAT 61–98
[2017-09-28] MEDS: ISOSORBIDE MONONITRATE 30 MG TAB PO SCH (06:12)
[2017-09-28] MEDS: hydrALAZINE HCL 25 MG TAB PO SCH ×3 (06:12→22:46)
[2017-09-28 06:15] LABS: BICARBONATE 26.3 MEQ/L (21.0-32.0); CALCIUM 8.9 MG/DL (8.5-10.1); CREATININE 2.01 MG/DL (0.60-1.30)
[2017-09-28] MEDS ORDERED: POTASSIUM CHLORIDE 20 MEQ CONTROLLED RELEASE TAB PO ONE (08:45)
[2017-09-28] MEDS: POTASSIUM CHLORIDE 20 MEQ CONTROLLED RELEASE TAB PO SCH (09:00)
--- NOTE | 2017-09-28 09:32 | HHI.PR ---
Subjective Remarks Follow up visit elevated troponin, CHF. Patient seen and examined today sitting in bed. On room air. Denies any shortness of breath, dyspnea. Denies any chest pain, palpitations. Reports still with no BM. States he has been sitting up and getting out of bed without any dizziness, headaches, chest pain or palpitations. Objective Vitals Vital Signs Date Time Temp Pulse Resp B/P (MAP) Pulse Ox O2 Delivery O2 Flow Rate FiO2 09/28/17 06:56 98.4 61 18 135/81 (99) 61 09/28/17 04:23 98.0 69 17 135/61 (85) 96 09/27/17 23:06 97.9 64 17 138/62 (87) 97 09/27/17 21:21 98 09/27/17 19:39 98.1 64 18 133/71 (91) 96 09/27/17 18:51 67 09/27/17 16:05 97.9 64 18 116/70 (85) 99 09/27/17 12:30 98.3 67 18 117/71 (86) 95 I/O 09/27/17 09/27/17 09/27/17 09/28/17 09/28/17 09/28/17 07:00 15:00 23:00 07:00 15:00 23:00 Intake Total 750 ml 406 ml Output Total 950 ml 350 ml 1175 ml 1900 ml Balance -200 ml -350 ml -769 ml -1900 ml Intake Oral 750 ml 390 ml IV Total 16 ml Output Urine Total 950 ml 350 ml 1175 ml 1900 ml Result Diagram: 09/25/17 0710 09/28/17 0533 Imaging Last Impressions Chest X-Ray 09/28/17 0000 Signed Impressions: Service Date/Time: Thursday, September 28, 2017 09:47 - CONCLUSION: Bibasilar densities likely atelectasis. Chucky Hough MD Lower Extremity Ultrasound 09/25/17 0000 Signed Impressions: Service Date/Time: September 09:53 - CONCLUSION: 1. Negative exam with no evidence of deep venous thrombosis. 2. Bilateral lower extremity edema. Salvador Graves MD Objective Remarks GENERAL: This is a well-nourished, well-developed patient, in no apparent distress. SKIN: Warm and dry HEENT: Normocephalic. Pupils equal round and reactive. Nose without bleeding. Airway patent. NECK: Trachea midline. CARDIOVASCULAR: Regular rate and rhythm without murmurs, gallops, or rubs. RESPIRATORY: No wheezes, rhonchi. Mild rales bilateral lower lobe. GASTROINTESTINAL: Abdomen soft, non-tender, nondistended. Bowel Sounds hypoactive. MUSCULOSKELETAL: Extremities without clubbing, cyanosis. Bilateral lower extremity +2 edema. NEUROLOGICAL: Awake and alert. Oriented to time, place, person. No focal neuro deficit. Moves all extremities. Normal speech. Procedures None. A/P Problem List: (1) CKD (chronic kidney disease) stage 3, GFR 30-59 ml/min ICD Code: N18.3 - Chronic kidney disease, stage 3 (moderate) (2) CHF exacerbation ICD Code: I50.9 - Heart failure, unspecified Status: Acute (3) Elevated troponin ICD Code: R74.8 - Abnormal levels of other serum enzymes Status: Acute Assessment and Plan 72-year-old male with a past medical history significant for CHF, CAD, hypertension and history of renal cell carcinoma status post nephrectomy presents to the emergency department for further evaluation of CHF exacerbation. The patient was being seen by Dr. Alexandre in his office when he was sent to the emergency department for diuresis and further evaluation. He endorses intermittent chest tightness for 2 months although denies any current chest pain or pressure. NSTEMI Acute exacerbation of systolic CHF - EF 44% in 08/2017 per cardiology. - Troponins elevated 0.22, 0.54, 0.78. BNP 539. Patient reported intermittent chest pain in the last two months. - Troponin is down to 0.59. Cardiology is planning to perform Cath on 2017. - Continue Lipitor 80mg QHS. - Increase Lasix from 40 to 60mg IV BID with metolazone. Bumex IV is not available. - Consider Torsemide 20mg PO BID upon discharge. - Reports diuresis. CAD s/p CABG X 3v. - continue Aspirin, Carvedilol, Lasix, Hydralazine, Imdur. Hypokalemia CKD Stage III Hx of Renal cell carcinoma s/p right nephrectomy. - continue 20meQ Qday. - Avoid nephrotoxins. 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 Constipation - Milk of magnesia. Lactulose. Bowel regimen. - Monitor BM Full code. Lovenox for DVT prophylaxis. Discussed patient, nursing Discharge Planning Plan for cardiac catheter on Friday. Problem Qualifiers (1) CHF exacerbation: Qualified Codes: I50.9 - Heart failure, unspecified Ivory Grajeda Sep 28, 2017 09:32
[2017-09-28] MEDS ORDERED: LACTULOSE SYRUP 20 GM/30 ML CUP PO ONE (09:45)
--- NOTE | 2017-09-28 09:59 | RADRPT ---
EXAM DATE/TIME: 09/28/2017 09:47 [facility] COMPARISON: CHEST PA & LAT, September 24, 2017, 18:08. INDICATIONS : Cough MEDICAL HISTORY : Cardiovascular disease. SURGICAL HISTORY : CABG. ENCOUNTER: Subsequent ACUITY: 2 weeks PAIN SCORE: 0/10 LOCATION: chest FINDINGS: PA and lateral views of the chest demonstrate minimal bibasilar atelectasis without evidence of mass, infiltrate or effusion. Heart borderline enlarged. Status post CABG. The cardiomediastinal contours are unremarkable. Osseous structures are intact. CONCLUSION: Bibasilar densities likely atelectasis. Chucky Hough MD on September 28, 2017 at 9:56 Board Certified Radiologist. This report was verified electronically.
[2017-09-28] MEDS: CARVEDILOL 12.5 MG TAB PO SCH ×2 (10:12→22:43)
[2017-09-28] MEDS: METOLAZONE 5 MG TAB PO SCH (10:12)
[2017-09-28] MEDS: ASPIRIN 81 MG CHEW TAB CHEW SCH (10:12)
[2017-09-28] MEDS: ALLOPURINOL 100 MG TAB PO SCH (10:12)
[2017-09-28] MEDS: DOCUSATE SODIUM 50 MG/SENNA 8.6 MG TAB PO SCH ×2 (10:12→22:42)
[2017-09-28] MEDS: SODIUM CHLORIDE 0.9% FLUSH 10 ML FLUSH IV FLUSH SCH ×2 (10:13→22:44)
[2017-09-28] MEDS: FUROSEMIDE 100 MG/10 ML VIAL IV PUSH SCH ×2 (10:13→18:38)
[2017-09-28] MEDS: ENOXAPARIN SODIUM 40 MG/0.4 ML SYRINGE SQ SCH (12:45)
--- NOTE | 2017-09-28 15:18 | HHI.NPPN ---
Subjective Complaints: Obesity General Problems: Edema Renal Failure: Chronic History of Present Illness Patient is a 72-year-old male who presents to ER for evaluation of CHF exacerbation. Patient has a past medical history significant for CHF, CAD, hypertension and history of renal cell carcinoma. S/P nephrectomy in 2012 in [facility]. The patient was being seen by Dr. Alexandre in his office when he was sent to the emergency department for diuresis and further evaluation. Patient has 2-3 + lower extremity edema and crackles noted in lungs. Per patient Dr. Alexandre plans on doing a heart cath this admission. Creatinine is at 1.45 and GFR 48ml/min. 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 Additional Remarks Patient is resting comfortably Denies any SOB and reports that chest tightness is improved. Review of Systems Respiratory Respiratory Remarks denies SOB Cardiovascular Cardiac Remarks Denies CP Gastrointestinal GI Remarks Denies abdominal pain Genitourinary Remarks denies dysuria Objective Data Data 09/28/17 09/29/17 19:00 07:00 Intake Total 720 ml Output Total 201 ml Balance 519 ml Intake Oral 720 ml Output Urine Total 200 ml Stool Total 1 ml # Voids 1 Vital Signs Date Time Temp Pulse Resp B/P (MAP) Pulse Ox O2 Delivery O2 Flow Rate FiO2 09/28/17 15:06 97.8 61 20 107/61 (76) 97 09/28/17 10:51 98.0 63 18 136/56 (82) 96 09/28/17 06:56 98.4 61 18 135/81 (99) 61 09/28/17 04:23 98.0 69 17 135/61 (85) 96 09/27/17 23:06 97.9 64 17 138/62 (87) 97 09/27/17 21:21 98 09/27/17 19:39 98.1 64 18 133/71 (91) 96 09/27/17 18:51 67 09/27/17 16:05 97.9 64 18 116/70 (85) 99 -: 09/25/17 0710 09/28/17 0533 Physical Exam General Appearance: No Acute Distress, Comfortable, Obese Eyes Eye Exam: Pupils Equal Pulmonary Resp Exam: Breath Sounds Equal, No Distress, Decreased Bases Cardiology CV Exam: Regular Chest/Breast Chest/Breast Exam: Symmetry Gastrointestinal/Abdomen GI Exam: Soft, Non-Tender, Bowel Sounds Present Genitourinary Exam: Flank Non-Tender Integumentary Skin Exam: Clear, Warm, Dry Extremeties Extremities Exam: Pitting Edema Neurologic Neuro Exam: Alert, Awake Psychiatric Psych Exam: Appropriate Responses Assessment/Plan Problem List: (1) CKD (chronic kidney disease) ICD Codes: N18.9 - Chronic kidney disease, unspecified Plan: Patient is s/p nephrectomy 2012 for renal cell carcinoma 2-3+ pitting edema in lower extremity improving Good urine output Low sodium diet recommended. Plan Continue Lasix 60 mg IV BID Monitor urinary output and weight Will monitor renal function Avoid nephrotoxins. If need Cardiac Cath, will have 10-15% risk for contrast Nephropathy. Patient seen and examined, agree with above. Has more edema, on Lasix and Metolazone added. Creatinine is stable. seen this evening edema better cr 2.1 Need to hydrate prior to heart catheterization Dr. Mcmahon to follow (2) CHF exacerbation ICD Codes: I50.9 - Heart failure, unspecified Status: Acute Plan: On room air Continue IV lasix (3) HTN (hypertension) ICD Codes: I10 - Essential (primary) hypertension Plan: Well controlled Continue coreg, isosorbide, and hydralazine (4) Elevated troponin ICD Codes: R74.8 - Abnormal levels of other serum enzymes Status: Acute Plan: Chest tightness improving. Serial troponin with trending downwards Problem Qualifiers (1) CKD (chronic kidney disease): Qualified Codes: N18.3 - Chronic kidney disease, stage 3 (moderate) (2) CHF exacerbation: Qualified Codes: I50.9 - Heart failure, unspecified Marilee Odonnell MD Sep 28, 2017 15:18
--- NOTE | 2017-09-28 16:20 | PD.CARD.PN ---
Subjective Subjective Remarks FEELS BETTER NO COMPLAINTS OF CHEST PAIN OR SOB Objective Medications Current Medications Medications (Trade) Dose Ordered Sig/Kareen Route Start Time Stop Time Status Last Admin (NS Flush) 2 ml UNSCH PRN IV FLUSH 09/24/17 19:30 (NS Flush) 2 ml BID IV FLUSH 09/24/17 21:00 09/28/17 10:13 (Tylenol) 650 mg Q4H PRN PO 09/24/17 19:30 (Zofran Inj) 4 mg Q6H PRN IVP 09/24/17 19:30 (Narcan Inj) 0.4 mg UNSCH PRN IV PUSH 09/24/17 19:30 (Milk Of Magnesia Liq) 30 ml Q12H PRN PO 09/24/17 19:30 09/27/17 10:59 (Senokot) 17.2 mg Q12H PRN PO 09/24/17 19:30 (Dulcolax Supp) 10 mg DAILY PRN RECTAL 09/24/17 19:30 (Lactulose Liq) 30 ml DAILY PRN PO 09/24/17 19:30 (Zyloprim) 100 mg DAILY PO 09/25/17 09:00 09/28/17 10:12 (Coreg) 25 mg BID PO 09/24/17 21:00 09/28/17 10:12 (Flomax) 0.8 mg HS PO 09/24/17 21:00 09/27/17 22:26 (Lipitor) 80 mg HS PO 09/26/17 21:00 09/27/17 22:27 (Lovenox Inj) 40 mg Q24H SQ 09/25/17 12:00 09/28/17 12:45 (Aspirin Chew) 325 mg DAILY CHEW 09/26/17 09:00 09/28/17 10:12 (Imdur) 30 mg DAILY@07 PO 09/25/17 10:30 09/28/17 06:12 (KCl) 20 meq DAILY PO 09/26/17 09:00 09/27/17 10:29 (Apresoline) 25 mg Q8H PO 09/25/17 20:00 09/28/17 12:44 (Ambien) 5 mg HS PRN PO 09/25/17 23:45 09/26/17 00:01 (Lasix Inj) 60 mg BID@09,18 IV PUSH 09/26/17 18:00 09/28/17 10:13 (Zaroxolyn) 5 mg DAILY PO 09/27/17 09:00 09/28/17 10:12 (Veronique-Colace) 1 tab BID PO 09/27/17 21:00 09/28/17 10:12 Vital Signs / I&O Vital Signs Date Time Temp Pulse Resp B/P (MAP) Pulse Ox O2 Delivery O2 Flow Rate FiO2 09/28/17 15:06 97.8 61 20 107/61 (76) 97 09/28/17 10:51 98.0 63 18 136/56 (82) 96 09/28/17 06:56 98.4 61 18 135/81 (99) 61 09/28/17 04:23 98.0 69 17 135/61 (85) 96 09/27/17 23:06 97.9 64 17 138/62 (87) 97 09/27/17 21:21 98 09/27/17 19:39 98.1 64 18 133/71 (91) 96 09/27/17 18:51 67 I/O 09/27/17 09/27/17 09/27/17 09/28/17 09/28/17 09/28/17 07:00 15:00 23:00 07:00 15:00 23:00 Intake Total 750 ml 406 ml 720 ml 240 ml Output Total 950 ml 350 ml 1175 ml 1900 ml 201 ml 300 ml Balance -200 ml -350 ml -769 ml -1900 ml 519 ml -60 ml Intake Oral 750 ml 390 ml 720 ml 240 ml IV Total 16 ml Output Urine Total 950 ml 350 ml 1175 ml 1900 ml 200 ml 300 ml Stool Total 1 ml # Voids 1 Physical Exam NAD ANICTERIC, MARGRET THICK NECK, NO BRUIT BIBASILAR CRACKLES ABD SOFT AND NON TENDER EXTREMITIES WITH 3+ EDEMA BILAT Laboratory Laboratory Tests Test 09/28/17 05:33 Blood Urea Nitrogen 33 MG/DL Creatinine 2.01 MG/DL Random Glucose 104 MG/DL Calcium Level 8.9 MG/DL Sodium Level 141 MEQ/L Potassium Level 3.3 MEQ/L Chloride Level 104 MEQ/L Carbon Dioxide Level 26.3 MEQ/L Anion Gap 11 MEQ/L Estimat Glomerular Filtration Rate 33 ML/MIN Imaging Last 24 hours Impressions Chest X-Ray 09/28/17 0000 Signed Impressions: Service Date/Time: Thursday, September 28, 2017 09:47 - CONCLUSION: Bibasilar densities likely atelectasis. Chucky Hough MD Assessment and Plan Assessment and Plan STABLE CVS VOLUME OVERLOAD CHF CARDIOMYOPATHY AI CRI PLAN: MEDICATIONS REVIEWED. CONTINUE NEGATIVE FLUID BALANCE SBP AND CREATININE TOLERATES CARDIAC CATH PER Joe Delgado MD Sep 28, 2017 16:20
[2017-09-28] MEDS: ATORVASTATIN 80 MG TAB PO SCH (22:43)
[2017-09-28] MEDS: TAMSULOSIN HCL 0.4 MG CAP PO SCH (22:43)
[2017-09-29] VITALS (10 sets, daily range): BP systolic 110–154; BP diastolic 67–84; PULSE 59–71; RESP 18–20; TEMP 97.6–98.2; O2SAT 94–98
[2017-09-29] MEDS: hydrALAZINE HCL 25 MG TAB PO SCH ×3 (04:23→21:44)
[2017-09-29 06:12] LABS: BICARBONATE 25.7 MEQ/L (21.0-32.0); CALCIUM 9.1 MG/DL (8.5-10.1); CREATININE 2.09 MG/DL (0.60-1.30)
[2017-09-29] MEDS: ISOSORBIDE MONONITRATE 30 MG TAB PO SCH (07:00)
[2017-09-29] MEDS ORDERED: POTASSIUM CHLORIDE 20 MEQ CONTROLLED RELEASE TAB PO ONE (08:30)
[2017-09-29] MEDS: FUROSEMIDE 100 MG/10 ML VIAL IV PUSH SCH (09:06)
[2017-09-29] MEDS: CARVEDILOL 12.5 MG TAB PO SCH ×2 (09:07→21:43)
[2017-09-29] MEDS: POTASSIUM CHLORIDE 20 MEQ CONTROLLED RELEASE TAB PO SCH (09:07)
[2017-09-29] MEDS: METOLAZONE 5 MG TAB PO SCH (09:08)
[2017-09-29] MEDS: ALLOPURINOL 100 MG TAB PO SCH (09:08)
[2017-09-29] MEDS: DOCUSATE SODIUM 50 MG/SENNA 8.6 MG TAB PO SCH ×2 (09:09→21:43)
[2017-09-29] MEDS: ASPIRIN 81 MG CHEW TAB CHEW SCH (09:10)
[2017-09-29] MEDS: SODIUM CHLORIDE 0.9% FLUSH 10 ML FLUSH IV FLUSH SCH ×2 (09:11→21:00)
--- NOTE | 2017-09-29 09:37 | HHI.PR ---
Subjective Remarks Follow up visit elevated troponin, CHF. Patient seen and examined today. On room air. at the bedside. Denies any shortness of breath, dyspnea. Denies any chest pain, palpitations. Patient states he is able to lay down flat without difficulty breathing however he has back pain that he is unable to stay flat because it aggravates his back pain. Has been walking around on room air without any chest pain shortness of breath or dyspnea. Bowel movement yesterday. Objective Vitals Vital Signs Date Time Temp Pulse Resp B/P (MAP) Pulse Ox O2 Delivery O2 Flow Rate FiO2 09/29/17 07:40 98.2 71 18 145/84 (104) 95 09/29/17 03:12 98.0 59 18 154/82 (106) 98 09/28/17 23:29 98.5 61 18 168/89 (115) 98 09/28/17 22:08 98.8 87 18 138/75 (96) 98 09/28/17 15:06 97.8 61 20 107/61 (76) 97 09/28/17 15:00 60 09/28/17 10:51 98.0 63 18 136/56 (82) 96 I/O 09/28/17 09/28/17 09/28/17 09/29/17 09/29/17 09/29/17 07:00 15:00 23:00 07:00 15:00 23:00 Intake Total 720 ml 240 ml Output Total 1900 ml 201 ml 300 ml 2500 ml Balance -1900 ml 519 ml -60 ml -2500 ml Intake Oral 720 ml 240 ml Output Urine Total 1900 ml 200 ml 300 ml 2500 ml Stool Total 1 ml # Voids 1 4 # Bowel Movements 0 Result Diagram: 09/25/17 0710 09/29/17 0451 Imaging Last Impressions Chest X-Ray 09/28/17 0000 Signed Impressions: Service Date/Time: Thursday, September 28, 2017 09:47 - CONCLUSION: Bibasilar densities likely atelectasis. Chucky Hough MD Lower Extremity Ultrasound 09/25/17 0000 Signed Impressions: Service Date/Time: September 09:53 - CONCLUSION: 1. Negative exam with no evidence of deep venous thrombosis. 2. Bilateral lower extremity edema. Salvador Graves MD Objective Remarks GENERAL: This is a well-nourished, well-developed patient, in no apparent distress. SKIN: Warm and dry HEENT: Normocephalic. Pupils equal round and reactive. Nose without bleeding. Airway patent. NECK: Trachea midline. CARDIOVASCULAR: Regular rate and rhythm without murmurs, gallops, or rubs. RESPIRATORY: No wheezes, rhonchi. Minimal rales bilateral lower lobe. GASTROINTESTINAL: Abdomen soft, non-tender, nondistended. Bowel Sounds hypoactive. MUSCULOSKELETAL: Extremities without clubbing, cyanosis. Bilateral lower extremity +2 edema. NEUROLOGICAL: Awake and alert. Oriented to time, place, person. No focal neuro deficit. Moves all extremities. Normal speech. Procedures None. A/P Problem List: (1) CKD (chronic kidney disease) stage 3, GFR 30-59 ml/min ICD Code: N18.3 - Chronic kidney disease, stage 3 (moderate) (2) CHF exacerbation ICD Code: I50.9 - Heart failure, unspecified Status: Acute (3) Elevated troponin ICD Code: R74.8 - Abnormal levels of other serum enzymes Status: Acute Assessment and Plan 72-year-old male with a past medical history significant for CHF, CAD, hypertension and history of renal cell carcinoma status post nephrectomy presents to the emergency department for further evaluation of CHF exacerbation. The patient was being seen by Dr. Alexandre in his office when he was sent to the emergency department for diuresis and further evaluation. He endorses intermittent chest tightness for 2 months although denies any current chest pain or pressure. NSTEMI Acute exacerbation of systolic CHF - EF 44% in 08/2017 per cardiology. - Troponins elevated 0.22, 0.54, 0.78. BNP 539. Patient reported intermittent chest pain in the last two months. - Troponin is down to 0.59. Cardiology is planning to perform Cath on 2017. - Continue Lipitor 80mg QHS. - Patient was on IV lasix and metolazone. - Reports diuresis. 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 Plan to have gentle hydration while keeping patient on diuretics - Torsemide BID. Plan for cardiac cath tomorrow. - We'll transfer patient to inpatient cardiac unit. Telemetry in place for closer monitoring. CAD s/p CABG X 3v. - continue Aspirin, Carvedilol, Lasix, Hydralazine, Imdur. Hypokalemia CKD Stage III Hx of Renal cell carcinoma s/p right nephrectomy. - continue 20meQ Qday. - Avoid nephrotoxins. 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 Hx of PE - patient has IVC filter. Constipation - Milk of magnesia. Lactulose. Bowel regimen. - Monitor BM Full code. Lovenox for DVT prophylaxis. Discussed patient, nursing Discharge Planning Plan for cardiac catheter on Friday. Problem Qualifiers (1) CHF exacerbation: Qualified Codes: I50.9 - Heart failure, unspecified Ivory Grajeda Sep 29, 2017 09:37
--- NOTE | 2017-09-29 10:05 | PD.CARD.PN ---
Subjective Subjective Remarks No CP or SOB, edema improving. Orthopena resolved. GFR 31 today. (Matilde Ji) Objective Medications Current Medications Medications (Trade) Dose Ordered Sig/Kareen Route Start Time Stop Time Status Last Admin (NS Flush) 2 ml UNSCH PRN IV FLUSH 09/24/17 19:30 (NS Flush) 2 ml BID IV FLUSH 09/24/17 21:00 09/29/17 09:11 (Tylenol) 650 mg Q4H PRN PO 09/24/17 19:30 (Zofran Inj) 4 mg Q6H PRN IVP 09/24/17 19:30 (Narcan Inj) 0.4 mg UNSCH PRN IV PUSH 09/24/17 19:30 (Milk Of Magnesia Liq) 30 ml Q12H PRN PO 09/24/17 19:30 09/27/17 10:59 (Senokot) 17.2 mg Q12H PRN PO 09/24/17 19:30 (Dulcolax Supp) 10 mg DAILY PRN RECTAL 09/24/17 19:30 (Lactulose Liq) 30 ml DAILY PRN PO 09/24/17 19:30 (Zyloprim) 100 mg DAILY PO 09/25/17 09:00 09/29/17 09:08 (Coreg) 25 mg BID PO 09/24/17 21:00 09/29/17 09:07 (Flomax) 0.8 mg HS PO 09/24/17 21:00 09/28/17 22:43 (Lipitor) 80 mg HS PO 09/26/17 21:00 09/28/17 22:43 (Lovenox Inj) 40 mg Q24H SQ 09/25/17 12:00 09/28/17 12:45 (Aspirin Chew) 325 mg DAILY CHEW 09/26/17 09:00 09/29/17 09:10 (Imdur) 30 mg DAILY@07 PO 09/25/17 10:30 09/29/17 07:00 (KCl) 20 meq DAILY PO 09/26/17 09:00 09/29/17 09:07 (Apresoline) 25 mg Q8H PO 09/25/17 20:00 09/29/17 04:23 (Ambien) 5 mg HS PRN PO 09/25/17 23:45 09/26/17 00:01 (Lasix Inj) 60 mg BID@,18 IV PUSH 09/26/17 18:00 09/29/17 09:06 (Zaroxolyn) 5 mg DAILY PO 09/27/17 09:00 09/29/17 09:08 (Veronique-Colace) 1 tab BID PO 09/27/17 21:00 09/29/17 09:09 Vital Signs / I&O Vital Signs Date Time Temp Pulse Resp B/P (MAP) Pulse Ox O2 Delivery O2 Flow Rate FiO2 09/29/17 07:40 98.2 71 18 145/84 (104) 95 09/29/17 03:12 98.0 59 18 154/82 (106) 98 09/28/17 23:29 98.5 61 18 168/89 (115) 98 09/28/17 22:08 98.8 87 18 138/75 (96) 98 09/28/17 15:06 97.8 61 20 107/61 (76) 97 09/28/17 15:00 60 09/28/17 10:51 98.0 63 18 136/56 (82) 96 I/O 09/28/17 09/28/17 09/28/17 09/29/17 09/29/17 09/29/17 07:00 15:00 23:00 07:00 15:00 23:00 Intake Total 720 ml 240 ml Output Total 1900 ml 201 ml 300 ml 2500 ml Balance -1900 ml 519 ml -60 ml -2500 ml Intake Oral 720 ml 240 ml Output Urine Total 1900 ml 200 ml 300 ml 2500 ml Stool Total 1 ml # Voids 1 4 # Bowel Movements 0 Physical Exam GENERAL: Middle age male sitting up in the chair SKIN: Warm and dry. HEAD: Normocephalic. EYES: No scleral icterus. No injection or drainage. NECK: Supple, trachea midline. CARDIOVASCULAR: Regular rate and rhythm without murmurs, gallops, or rubs. RESPIRATORY: Bilateral rales GASTROINTESTINAL: Abdomen soft, non-tender, nondistended. MUSCULOSKELETAL: No cyanosis, 1+ BLE edema BACK: Nontender without obvious deformity. Laboratory Laboratory Tests Test 09/29/17 04:51 Blood Urea Nitrogen 47 MG/DL Creatinine 2.09 MG/DL Random Glucose 97 MG/DL Calcium Level 9.1 MG/DL Sodium Level 139 MEQ/L Potassium Level 3.1 MEQ/L Chloride Level 101 MEQ/L Carbon Dioxide Level 25.7 MEQ/L Anion Gap 12 MEQ/L Estimat Glomerular Filtration Rate 31 ML/MIN Imaging Last 72 hours Impressions Chest X-Ray 09/28/17 0000 Signed Impressions: Service Date/Time: Thursday, September 28, 2017 09:47 - CONCLUSION: Bibasilar densities likely atelectasis. 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 Canceled today. GFR 31 Stop metolazone and IV diuresis. Start NS 75 ml/hr and give mucomyst. Will transition to torsemide 20 PO outpatient. Stop lovenox Recheck labs in the AM CT chest w/o contrast Continue Imdur, hydralazine, Coreg, ASA 325 and statin The patient was seen and evaluated by Dr Alexandre who completed face to face encounter and physical exam and participated in evaluation and management (Matilde Ji) Assessment and Plan The exam, history, and the medical decision-making described in the above note were completed with the assistance of the mid-level provider. I reviewed and agree with the findings presented. I attest that I had a [id number] encounter with the patient on the same day, and personally performed and documented my assessment and findings in the medical record. If creatinine better tomorrow will cath: otherwise will try to cath done next week (Maddie Alexandre MD) Matilde Ji Sep 29, 2017 10:05 Maddie Alexandre MD Sep 29, 2017 14:37
[2017-09-29] MEDS: SODIUM CHLOR 0.9% 1000 ML INJ 1,000 ML IV SCH (12:29)
[2017-09-29] MEDS: ENOXAPARIN SODIUM 40 MG/0.4 ML SYRINGE SQ SCH (12:29)
--- NOTE | 2017-09-29 15:02 | HHI.NPPN ---
Subjective Complaints: Obesity General Problems: Edema Renal Failure: Chronic History of Present Illness Patient is a 72-year-old male who presents to ER for evaluation of CHF exacerbation. Patient has a past medical history significant for CHF, CAD, hypertension and history of renal cell carcinoma. S/P nephrectomy in 2012 in [facility]. The patient was being seen by Dr. Alexandre in his office when he was sent to the emergency department for diuresis and further evaluation. Patient has 2-3 + lower extremity edema and crackles noted in lungs. Per patient Dr. Alexandre plans on doing a heart cath this admission. Creatinine is at 1.45 and GFR 48ml/min. 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 Additional Remarks Patient is resting comfortably SOB and edema has improved. Plans for heart cath tomorrow (Janeth Huber) Review of Systems Respiratory Respiratory Remarks denies SOB (Janeth Huber) Cardiovascular Cardiac Remarks Denies CP (Janeth Huber) Gastrointestinal GI Remarks Denies abdominal pain (Janeth Huber) Genitourinary Remarks denies dysuria (Janeth Huber) Objective Data Data Vital Signs Date Time Temp Pulse Resp B/P (MAP) Pulse Ox O2 Delivery O2 Flow Rate FiO2 09/29/17 12:08 97.6 62 20 110/67 (81) 98 09/29/17 07:40 98.2 71 18 145/84 (104) 95 09/29/17 03:12 98.0 59 18 154/82 (106) 98 09/28/17 23:29 98.5 61 18 168/89 (115) 98 09/28/17 22:08 98.8 87 18 138/75 (96) 98 09/28/17 15:06 97.8 61 20 107/61 (76) 97 09/28/17 15:00 60 (Janeth Huber) -: 09/25/17 0710 09/29/17 0451 Imaging Last Impressions Chest X-Ray 09/28/17 0000 Signed Impressions: Service Date/Time: Thursday, September 28, 2017 09:47 - CONCLUSION: Bibasilar densities likely atelectasis. Chucky Hough MD Lower Extremity Ultrasound 09/25/17 0000 Signed Impressions: Service Date/Time: September 09:53 - CONCLUSION: 1. Negative exam with no evidence of deep venous thrombosis. 2. Bilateral lower extremity edema. Salvador Graves MD (Janeth Huber. CREAM MAKER) Physical Exam General Appearance: No Acute Distress, Comfortable, Obese (TexlerStefani mcginnisne M. CREAM MAKER) Eyes Eye Exam: Pupils Equal (TexlerJaneth mcginnis CREAM MAKER) Pulmonary Resp Exam: Breath Sounds Equal, No Distress, Decreased Bases (GellerJaneth mcginnis. CREAM MAKER) Cardiology CV Exam: Regular (TexlerJaneth mcginnis. CREAM MAKER) Chest/Breast Chest/Breast Exam: Symmetry (TexlerJaneth mcginnis. CREAM MAKER) Gastrointestinal/Abdomen GI Exam: Soft, Non-Tender, Bowel Sounds Present (TexlerJaneth mcginnis M. CREAM MAKER) Genitourinary Exam: Flank Non-Tender (Janeth Huber. CREAM MAKER) Integumentary Skin Exam: Clear, Warm, Dry (Janeth Huber. CREAM MAKER) Extremeties Extremities Exam: Pitting Edema (Janeth Huber. CREAM MAKER) Neurologic Neuro Exam: Alert, Awake (Janeth Huber. CREAM MAKER) Psychiatric Psych Exam: Appropriate Responses (Janeth Huber) Assessment/Plan Discussed Condition With: Patient Electrolyte Assessment: Hypokalemia Problem List: (1) CKD (chronic kidney disease) ICD Codes: N18.9 - Chronic kidney disease, unspecified Plan: Patient is s/p nephrectomy 2012 for renal cell carcinoma Pitting edema in lower extremity improving Good urine output Creatinine at 2.09 and GFR 31ml/min today Plan Lasix and metolazone discontinued plan for torsemide at discharge Heart cath planned for tomorrow IVF infusing and Mucomyst ordered. (2) CHF exacerbation ICD Codes: I50.9 - Heart failure, unspecified Status: Acute Plan: On room air (3) HTN (hypertension) ICD Codes: I10 - Essential (primary) hypertension Plan: Well controlled Continue the same (4) Elevated troponin ICD Codes: R74.8 - Abnormal levels of other serum enzymes Status: Acute Plan: Chest tightness resolved Heart cath planned for tomorrow (Janeth Huber) Problem List: (1) CKD (chronic kidney disease) ICD Codes: N18.9 - Chronic kidney disease, unspecified Plan: Patient is s/p nephrectomy 2012 for renal cell carcinoma Pitting edema in lower extremity improving Good urine output Creatinine at 2.09 and GFR 31ml/min today Plan Lasix and metolazone discontinued plan for torsemide at discharge Heart cath planned for tomorrow IVF infusing and Mucomyst ordered. Patient seen and examined, agree with above. D/W Patient and about possible Contrast Nephropathy. (2) CHF exacerbation ICD Codes: I50.9 - Heart failure, unspecified Status: Acute Plan: On room air (3) HTN (hypertension) ICD Codes: I10 - Essential (primary) hypertension Plan: Well controlled Continue the same (4) Elevated troponin ICD Codes: R74.8 - Abnormal levels of other serum enzymes Status: Acute Plan: Chest tightness resolved Heart cath planned for tomorrow (Jessi Mcmahon MD) Problem Qualifiers (1) CKD (chronic kidney disease): Qualified Codes: N18.3 - Chronic kidney disease, stage 3 (moderate) (2) CHF exacerbation: Qualified Codes: I50.9 - Heart failure, unspecified Janeth Huber Sep 29, 2017 15:02 Jessi Mcmahon MD Sep 29, 2017 16:54
[2017-09-29] MEDS: [UNRECOGNIZED DRUG - REMARK] PO SCH ×2 (15:23→23:02)
--- NOTE | 2017-09-29 16:46 | RADRPT ---
EXAM DATE/TIME: 09/29/2017 16:22 [place] COMPARISON: No previous studies available for comparison. INDICATIONS : Shortness of breath. Abnormal chest radiograph. RADIATION DOSE: 20.10 CTDIvol (mGy) MEDICAL HISTORY : Cardiovascular disease. Hypertension. Renal cell carcinoma. SURGICAL HISTORY : Cholecystectomy. ENCOUNTER: Initial ACUITY: 1 day PAIN SCALE: 0/10 LOCATION: chest TECHNIQUE: Volumetric scanning of the chest was performed. Using automated exposure control and adjustment of t he mA and/or kV according to patient size, radiation dose was kept as low as reasonably achievable to obtain optimal diagnostic quality images. DICOM format image data is available electronically for r eview and comparison. Follow-up recommendations for detected pulmonary nodules are based at a minimum on nodule size and pa tient risk factors according to Fleischner Society Guidelines. FINDINGS: Very minimal bibasilar parietal changes on the right. There is no axillary or mediastinal adenopathy appreciated. Extensive coronary calcifications are no zeinab. There is no pericardial effusion. The portal liver is reidentified are free of focal defects Degenerative changes thoracic spine. CONCLUSION: Extensive coronary calcifications. Minimal nonspecific parenchymal changes right base. There is no significant adenopathy. Greg Ceron MD FACR on September 29, 2017 at 16:43 Board Certified Radiologist. This report was verified electronically.
[2017-09-29] MEDS ORDERED: TORSEMIDE 20 MG TAB PO SCH (18:00)
[2017-09-29] MEDS: ATORVASTATIN 80 MG TAB PO SCH (21:43)
[2017-09-29] MEDS: TAMSULOSIN HCL 0.4 MG CAP PO SCH (21:43)
[2017-09-30] VITALS (19 sets, daily range): BP systolic 119–147; BP diastolic 67–86; PULSE 55–68; RESP 16–20; TEMP 97.8–98; O2SAT 96–98
[2017-09-30] MEDS: SODIUM CHLOR 0.9% 1000 ML INJ 1,000 ML IV SCH (04:01)
[2017-09-30] MEDS: hydrALAZINE HCL 25 MG TAB PO SCH ×2 (04:01→12:12)
[2017-09-30] MEDS: ISOSORBIDE MONONITRATE 30 MG TAB PO SCH (05:46)
[2017-09-30 06:36] LABS: HEMATOCRIT 43.8 % (39.0-51.0); HEMOGLOBIN 15.1 GM/DL (13.0-17.0); MEAN CELL VOLUME 88.8 FL (80.0-100.0); MEAN CORPUSCULAR HEMOGLOBIN 30.5 PG (27.0-34.0); MEAN CORPUSCULAR HGB CONC 34.4 % (32.0-36.0); MEAN PLATELET VOLUME 7.7 FL (7.0-11.0); PLATELET COUNT 125 TH/MM3 (150-450); RED BLOOD COUNT 4.93 MIL/MM3 (4.50-5.90); WHITE BLOOD COUNT 6.8 TH/MM3 (4.0-11.0)
[2017-09-30 07:24] LABS: BICARBONATE 27.3 MEQ/L (21.0-32.0); CALCIUM 8.6 MG/DL (8.5-10.1); CREATININE 2.13 MG/DL (0.60-1.30)
--- NOTE | 2017-09-30 07:58 | HHI.PR ---
Subjective Remarks Patient with low K and kidney function not improving. Per cardio cardiac on hold poss tomorrow. Monitor. Patient with no chest pain at this time. No cp overnight. Denies fever or chills. Objective Vitals Vital Signs Date Time Temp Pulse Resp B/P (MAP) Pulse Ox O2 Delivery O2 Flow Rate FiO2 09/30/17 06:00 61 09/30/17 05:00 61 09/30/17 04:00 98.0 55 20 139/86 (103) 97 09/30/17 04:00 55 09/30/17 03:00 65 09/30/17 02:00 68 09/30/17 01:00 63 09/30/17 00:00 97.8 64 18 120/77 (91) 97 09/30/17 00:00 64 09/29/17 23:00 65 09/29/17 22:00 62 09/29/17 21:00 62 09/29/17 20:00 63 09/29/17 20:00 98.1 63 18 136/80 (98) 98 09/29/17 15:45 62 09/29/17 15:32 97.6 63 19 115/70 (85) 94 09/29/17 12:08 97.6 62 20 110/67 (81) 98 I/O 09/29/17 09/29/17 09/29/17 09/30/17 09/30/17 09/30/17 07:00 15:00 23:00 07:00 15:00 23:00 Intake Total 720 ml 1000 ml Output Total 2500 ml 975 ml 1200 ml Balance -2500 ml -255 ml -200 ml Intake Oral 720 ml 0 ml IV Total 1000 ml Output Urine Total 2500 ml 975 ml 1200 ml # Voids 4 # Bowel Movements 0 0 Result Diagram: 09/30/17 0520 09/30/17 0520 Imaging Last Impressions Chest CT 09/29/17 0000 Signed Impressions: Service Date/Time: Friday, September 29, 2017 16:22 - CONCLUSION: Extensive coronary calcifications. Minimal nonspecific parenchymal changes right base. There is no significant adenopathy. Greg Ceron MD FACR Chest X-Ray 09/28/17 0000 Signed Impressions: Service Date/Time: Thursday, September 28, 2017 09:47 - CONCLUSION: Bibasilar densities likely atelectasis. Chucky Hough MD Lower Extremity Ultrasound 09/25/17 0000 Signed Impressions: Service Date/Time: September 09:53 - CONCLUSION: 1. Negative exam with no evidence of deep venous thrombosis. 2. Bilateral lower extremity edema. Salvador Graves MD Objective Remarks GENERAL: This is a well-nourished, well-developed patient, in no apparent distress. CARDIOVASCULAR: Regular rate and rhythm without murmurs, gallops, or rubs. RESPIRATORY: No wheezes, rhonchi. Minimal rales bilateral lower lobe. GASTROINTESTINAL: Abdomen soft, non-tender, nondistended. Bowel Sounds hypoactive. MUSCULOSKELETAL: Extremities without clubbing, cyanosis. Bilateral lower extremity +2 edema. NEUROLOGICAL: Awake and alert. Oriented to time, place, person. No focal neuro deficit. Moves all extremities. Normal speech. Procedures cardiac cath 09/30/17 A/P Problem List: (1) CKD (chronic kidney disease) stage 3, GFR 30-59 ml/min ICD Code: N18.3 - Chronic kidney disease, stage 3 (moderate) (2) CHF exacerbation ICD Code: I50.9 - Heart failure, unspecified Status: Acute (3) Elevated troponin ICD Code: R74.8 - Abnormal levels of other serum enzymes Status: Acute Assessment and Plan 72-year-old male with a past medical history significant for CHF, CAD, hypertension and history of renal cell carcinoma status post nephrectomy presents to the emergency department for further evaluation of CHF exacerbation. The patient was being seen by Dr. Alexandre in his office when he was sent to the emergency department for diuresis and further evaluation. He endorses intermittent chest tightness for 2 months although denies any current chest pain or pressure. NSTEMI Acute exacerbation of systolic CHF - EF 44% in 08/2017 per cardiology. - Troponins elevated 0.22, 0.54, 0.78. BNP 539. Patient reported intermittent chest pain in the last two months. - Troponin is down to 0.59. Cardiology is planning to perform Cath on 2017. - Continue Lipitor 80mg QHS. - Patient was on IV lasix and metolazone. - Reports diuresis. 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 Plan to have gentle hydration while keeping patient on diuretics - Torsemide BID. Plan for cardiac cath 09/30/17. Received IVF and mucomyst, nephro ff. Risk of contrast nephropathy with cardiac cath patient/family aware. DC lasiz and metolazone. Will have torsemide as OP. Likely will hold cardiac cath today - Monitor on Telemetry CAD s/p CABG X 3v. - continue Aspirin, Carvedilol, Lasix, Hydralazine, Imdur. Hypokalemia CKD Stage III Hx of Renal cell carcinoma s/p right nephrectomy. - continue 20meQ Qday. Give extra 40 meq IV KCL and 50 meq PO potassium bicarb today as patient with persistent low K - Avoid nephrotoxins. 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 Also received Mucomyst . Hx of PE - patient has IVC filter. Constipation - Milk of magnesia. Lactulose. Bowel regimen. - Monitor BM Full code. Lovenox for DVT prophylaxis. Discussed patient, nursing Discharge Planning Plan for cardiac catheterization 09/30/17, however for now on hold per cardio, poss tomorrow cardiac cath. Patient at high risk of contrast nephropathy received gentle IVF, Mucomyst, pt/family aware of risk. Replace K and monitor kidney function Problem Qualifiers (1) CHF exacerbation: Qualified Codes: I50.9 - Heart failure, unspecified Tatiana Shelley MD Sep 30, 2017 07:58
[2017-09-30] MEDS ORDERED: POTASSIUM BICARBONATE 25 MEQ EFFERVESCENT TAB PO ONE ×2 (08:00→14:45)
[2017-09-30] MEDS ORDERED: POTASSIUM CHLOR 20 MEQ PREMIX 100 ML IV SCH (08:00)
[2017-09-30] MEDS ORDERED: POTASSIUM CHLORIDE 10 MEQ CONTROLLED RELEASE TAB PO ONE (08:15)
[2017-09-30] MEDS: SODIUM CHLORIDE 0.9% FLUSH 10 ML FLUSH IV FLUSH SCH (09:00)
--- NOTE | 2017-09-30 09:10 | PD.CARD.PN ---
Subjective Subjective Remarks No CP or SOB, edema continues to decrease. No palpitations. k 2.9 and Cr 2.1 this morning. Cardiac cath canceled (Matilde Ji) Objective Medications Current Medications Medications (Trade) Dose Ordered Sig/Kareen Route Start Time Stop Time Status Last Admin (NS Flush) 2 ml UNSCH PRN IV FLUSH 09/24/17 19:30 (NS Flush) 2 ml BID IV FLUSH 09/24/17 21:00 09/29/17 21:00 (Tylenol) 650 mg Q4H PRN PO 09/24/17 19:30 (Zofran Inj) 4 mg Q6H PRN IVP 09/24/17 19:30 (Narcan Inj) 0.4 mg UNSCH PRN IV PUSH 09/24/17 19:30 (Milk Of Magnesia Liq) 30 ml Q12H PRN PO 09/24/17 19:30 09/27/17 10:59 (Senokot) 17.2 mg Q12H PRN PO 09/24/17 19:30 (Dulcolax Supp) 10 mg DAILY PRN RECTAL 09/24/17 19:30 (Lactulose Liq) 30 ml DAILY PRN PO 09/24/17 19:30 (Zyloprim) 100 mg DAILY PO 09/25/17 09:00 09/29/17 09:08 (Coreg) 25 mg BID PO 09/24/17 21:00 09/29/17 21:43 (Flomax) 0.8 mg HS PO 09/24/17 21:00 09/29/17 21:43 (Lipitor) 80 mg HS PO 09/26/17 21:00 09/29/17 21:43 (Aspirin Chew) 325 mg DAILY CHEW 09/26/17 09:00 09/29/17 09:10 (Imdur) 30 mg DAILY@07 PO 09/25/17 10:30 09/30/17 05:46 (KCl) 20 meq DAILY PO 09/26/17 09:00 09/29/17 09:07 (Apresoline) 25 mg Q8H PO 09/25/17 20:00 09/30/17 04:01 (Ambien) 5 mg HS PRN PO 09/25/17 23:45 09/26/17 00:01 (Veronique-Colace) 1 tab BID PO 09/27/17 21:00 09/29/17 21:43 (Demadex) 20 mg BID@09,18 PO 09/29/17 18:00 Future Hold Sodium Chloride 1,000 ml @ 75 mls/hr [id number] IV 09/29/17 11:00 09/30/17 04:01 Non-Formulary Medication MUCOMYST 20% 4ML VIAL... BID PO 09/29/17 14:30 10/02/17 15:00 09/29/17 23:02 Potassium Chloride 100 ml @ 50 mls/hr Q2H IV 09/30/17 08:00 09/30/17 11:59 Vital Signs / I&O Vital Signs Date Time Temp Pulse Resp B/P (MAP) Pulse Ox O2 Delivery O2 Flow Rate FiO2 09/30/17 07:30 97.8 61 16 133/77 (95) 98 09/30/17 06:00 61 09/30/17 05:00 61 09/30/17 04:00 98.0 55 20 139/86 (103) 97 09/30/17 04:00 55 09/30/17 03:00 65 09/30/17 02:00 68 09/30/17 01:00 63 09/30/17 00:00 97.8 64 18 120/77 (91) 97 09/30/17 00:00 64 09/29/17 23:00 65 09/29/17 22:00 62 09/29/17 21:00 62 09/29/17 20:00 63 09/29/17 20:00 98.1 63 18 136/80 (98) 98 09/29/17 15:45 62 09/29/17 15:32 97.6 63 19 115/70 (85) 94 09/29/17 12:08 97.6 62 20 110/67 (81) 98 I/O 09/29/17 09/29/17 09/29/17 09/30/17 09/30/17 09/30/17 07:00 15:00 23:00 07:00 15:00 23:00 Intake Total 720 ml 1000 ml Output Total 2500 ml 975 ml 1200 ml Balance -2500 ml -255 ml -200 ml Intake Oral 720 ml 0 ml IV Total 1000 ml Output Urine Total 2500 ml 975 ml 1200 ml # Voids 4 # Bowel Movements 0 0 Physical Exam GENERAL: Middle age male in laying in bed comfortably SKIN: Warm and dry. HEAD: Normocephalic. EYES: No scleral icterus. No injection or drainage. NECK: Supple, trachea midline. CARDIOVASCULAR: Regular rate and rhythm without murmurs, gallops, or rubs. RESPIRATORY: Bilateral rales GASTROINTESTINAL: Abdomen soft, non-tender, nondistended. MUSCULOSKELETAL: No cyanosis, no edema BACK: Nontender without obvious deformity. Laboratory Laboratory Tests Test 09/30/17 05:20 White Blood Count 6.8 TH/MM3 Red Blood Count 4.93 MIL/MM3 Hemoglobin 15.1 GM/DL Hematocrit 43.8 % Mean Corpuscular Volume 88.8 FL Mean Corpuscular Hemoglobin 30.5 PG Mean Corpuscular Hemoglobin Concent 34.4 % Red Cell Distribution Width 13.0 % Platelet Count 125 TH/MM3 Mean Platelet Volume 7.7 FL Blood Urea Nitrogen 52 MG/DL Creatinine 2.13 MG/DL Random Glucose 90 MG/DL Calcium Level 8.6 MG/DL Sodium Level 140 MEQ/L Potassium Level 2.9 MEQ/L Chloride Level 103 MEQ/L Carbon Dioxide Level 27.3 MEQ/L Anion Gap 10 MEQ/L Estimat Glomerular Filtration Rate 31 ML/MIN B-Type Natriuretic Peptide 171 PG/ML Imaging Last [address] 09/29/17 0000 Signed Impressions: Service Date/Time: Friday, September 29, 2017 16:22 - CONCLUSION: Extensive coronary calcifications. Minimal nonspecific parenchymal changes right base. There is no significant adenopathy. Greg Ceron MD FACR Chest X-Ray 09/28/17 0000 Signed Impressions: Service Date/Time: Thursday, September 28, 2017 09:47 - CONCLUSION: Bibasilar densities likely atelectasis. 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 Dr Segundo will see the patient in the office on next Friday for reevaluation for cardiac cath next week. Potassium PO 80 meq now and repeat BMP at 11 Continue IVF for now until Cr trends down He will need diuresis on discharge with close followup of BMP. Continue Imdur, hydralazine, Coreg, ASA 325 and statin The patient was seen and evaluated by Dr Alexandre who completed face to face encounter and physical exam and participated in evaluation and management (Matilde Ji) Assessment and Plan The exam, history, and the medical decision-making described in the above note were completed with the assistance of the mid-level provider. I reviewed and agree with the findings presented. I attest that I had a [id number] encounter with the patient on the same day, and personally performed and documented my assessment and findings in the medical record. Discussed with pt and , they will see Dr Segundo for cath next week as they met him on weekend. Hopefully renal function will be back to baseline (Maddie Alexandre MD) Matilde Ji Sep 30, 2017 09:10 Maddie Alexandre MD Sep 30, 2017 18:00
[2017-09-30] MEDS: POTASSIUM CHLORIDE 20 MEQ CONTROLLED RELEASE TAB PO SCH (09:24)
[2017-09-30] MEDS: ASPIRIN 81 MG CHEW TAB CHEW SCH (09:24)
[2017-09-30] MEDS: ALLOPURINOL 100 MG TAB PO SCH (09:25)
[2017-09-30] MEDS: CARVEDILOL 12.5 MG TAB PO SCH (09:25)
[2017-09-30] MEDS: DOCUSATE SODIUM 50 MG/SENNA 8.6 MG TAB PO SCH (09:26)
--- NOTE | 2017-09-30 09:46 | HHI.NPPN ---
Subjective Complaints: Obesity General Problems: Edema Renal Failure: Chronic History of Present Illness Patient is a 72-year-old male who presents to ER for evaluation of CHF exacerbation. Patient has a past medical history significant for CHF, CAD, hypertension and history of renal cell carcinoma. S/P nephrectomy in 2012 in [facility]. The patient was being seen by Dr. Alexandre in his office when he was sent to the emergency department for diuresis and further evaluation. Patient has 2-3 + lower extremity edema and crackles noted in lungs. Per patient Dr. Alexandre plans on doing a heart cath this admission. Creatinine is at 1.45 and GFR 48ml/min. 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 (Janeth Huber) Additional Remarks Patient is resting comfortably SOB and edema has improved. Heart cath has been cancelled and patient will follow up outpatient (Janeth Huber) Review of Systems Respiratory Respiratory Remarks denies SOB (Janeth Huber) Cardiovascular Cardiac: Edema Cardiac Remarks Denies CP (Janeth Huber) Gastrointestinal GI Remarks Denies abdominal pain (Janeth Huber) Genitourinary Remarks denies dysuria (Janeth Huber) Objective Data Data Vital Signs Date Time Temp Pulse Resp B/P (MAP) Pulse Ox O2 Delivery O2 Flow Rate FiO2 09/30/17 07:30 97.8 61 16 133/77 (95) 98 09/30/17 06:00 61 09/30/17 05:00 61 09/30/17 04:00 98.0 55 20 139/86 (103) 97 09/30/17 04:00 55 09/30/17 03:00 65 09/30/17 02:00 68 09/30/17 01:00 63 09/30/17 00:00 97.8 64 18 120/77 (91) 97 09/30/17 00:00 64 09/29/17 23:00 65 09/29/17 22:00 62 09/29/17 21:00 62 09/29/17 20:00 63 09/29/17 20:00 98.1 63 18 136/80 (98) 98 09/29/17 15:45 62 09/29/17 15:32 97.6 63 19 115/70 (85) 94 09/29/17 12:08 97.6 62 20 110/67 (81) 98 (Janeth Huber) -: 09/30/17 0520 09/30/17 0520 Imaging Last Impressions Chest CT 09/29/17 0000 Signed Impressions: Service Date/Time: Friday, September 29, 2017 16:22 - CONCLUSION: Extensive coronary calcifications. Minimal nonspecific parenchymal changes right base. There is no significant adenopathy. Greg Ceron MD FACR Chest X-Ray 09/28/17 0000 Signed Impressions: Service Date/Time: Thursday, September 28, 2017 09:47 - CONCLUSION: Bibasilar densities likely atelectasis. Chucky Hough MD Lower Extremity Ultrasound 09/25/17 0000 Signed Impressions: Service Date/Time: September 09:53 - CONCLUSION: 1. Negative exam with no evidence of deep venous thrombosis. 2. Bilateral lower extremity edema. Salvador Graves MD (Janeth Huber) Physical Exam General Appearance: No Acute Distress, Comfortable, Obese (Janeth Huber) Eyes Eye Exam: Pupils Equal (Janeth Huber) Pulmonary Resp Exam: Breath Sounds Equal, No Distress, Decreased Bases (Janeth Huber) Cardiology CV Exam: Regular (Janeth Huber) Chest/Breast Chest/Breast Exam: Symmetry (Janeth Huber) Gastrointestinal/Abdomen GI Exam: Soft, Non-Tender, Bowel Sounds Present (Janeth Huber) Genitourinary Exam: Flank Non-Tender (Janeth Huber) Integumentary Skin Exam: Clear, Warm, Dry (Janeth Huber) Extremeties Extremities Exam: Pitting Edema (Janeth Huber) Neurologic Neuro Exam: Alert, Awake (Janeth Huber) Psychiatric Psych Exam: Appropriate Responses (Janeth Huber) Assessment/Plan Discussed Condition With: Patient Electrolyte Assessment: Hypokalemia Problem List: (1) CKD (chronic kidney disease) ICD Codes: N18.9 - Chronic kidney disease, unspecified Plan: Patient is s/p nephrectomy 2012 for renal cell carcinoma Pitting edema in lower extremity improving Good urine output Creatinine essentially unchanged at 2.13 and GFR 31ml/min today Plan Lasix and metolazone discontinued plan for torsemide at discharge Heart cath has been cancelled and patient will follow up outpatient Hypokalemia noted at 2.9 replacement ordered and recheck IVF infusing and Mucomyst ordered. If patient is discharged will need to follow up outpatient with nephrology (2) CHF exacerbation ICD Codes: I50.9 - Heart failure, unspecified Status: Acute Plan: On room air (3) HTN (hypertension) ICD Codes: I10 - Essential (primary) hypertension Plan: Well controlled Continue the same (4) Elevated troponin ICD Codes: R74.8 - Abnormal levels of other serum enzymes Status: Acute Plan: Chest tightness resolved Heart cath canceled (Janeth Huber) Problem List: (1) CKD (chronic kidney disease) ICD Codes: N18.9 - Chronic kidney disease, unspecified Plan: Patient is s/p nephrectomy 2012 for renal cell carcinoma Pitting edema in lower extremity improving Good urine output Creatinine essentially unchanged at 2.13 and GFR 31ml/min today Plan Lasix and metolazone discontinued plan for torsemide at discharge Heart cath has been cancelled and patient will follow up outpatient Hypokalemia noted at 2.9 replacement ordered and recheck IVF infusing and Mucomyst ordered. If patient is discharged will need to follow up outpatient with nephrology. Patient seen and examined, agree with above. Repeat K is 3.5, for D/C , follow up in 1-2 weeks. (2) CHF exacerbation ICD Codes: I50.9 - Heart failure, unspecified Status: Acute Plan: On room air (3) HTN (hypertension) ICD Codes: I10 - Essential (primary) hypertension Plan: Well controlled Continue the same (4) Elevated troponin ICD Codes: R74.8 - Abnormal levels of other serum enzymes Status: Acute Plan: Chest tightness resolved Heart cath canceled (Jessi Mcmahon MD) Problem Qualifiers (1) CKD (chronic kidney disease): Qualified Codes: N18.3 - Chronic kidney disease, stage 3 (moderate) (2) CHF exacerbation: Qualified Codes: I50.9 - Heart failure, unspecified Janeth Huber Sep 30, 2017 09:46 Jessi Mcmahon MD Sep 30, 2017 14:15
[2017-09-30] MEDS: [UNRECOGNIZED DRUG - REMARK] PO SCH (10:02)
[2017-09-30 12:45] LABS: BICARBONATE 27.6 MEQ/L (21.0-32.0); CREATININE 2.27 MG/DL (0.60-1.30); MAGNESIUM 2.5 MG/DL (1.5-2.5)
[2017-09-30] MEDS ORDERED: ISOS30TA3 PO (16:19)
[2017-09-30] MEDS ORDERED: HYDR-3799 PO (16:19)
[2017-09-30] MEDS ORDERED: ATOR80TA45 PO (16:19)
--- NOTE | 2017-09-30 16:26 | HHI.DS ---
Discharge Summary Admission Date Sep 29, 2017 at 09:01 Discharge Date: Sep 30, 2017 Admitting Diagnosis elevated troponin, CHF exacerbation (1) CKD (chronic kidney disease) stage 3, GFR 30-59 ml/min ICD Code: N18.3 - Chronic kidney disease, stage 3 (moderate) (2) CHF exacerbation ICD Code: I50.9 - Heart failure, unspecified Status: Acute (3) Elevated troponin ICD Code: R74.8 - Abnormal levels of other serum enzymes Status: Acute Procedures none Brief History - From Admission 72-year-old male with a past medical history significant for CHF, CAD, hypertension and history of renal cell carcinoma status post nephrectomy presents to the emergency department for further evaluation of CHF exacerbation. The patient was being seen by Dr. Alexandre in his office when he was sent to the emergency department for diuresis and further evaluation. The patient reports he has had shortness of breath that has been steadily worsening over the past several months. He also complains of bilateral lower extremity swelling for the past 1-2 months. He endorses intermittent chest tightness for 2 months although denies any current chest pain or pressure. CBC/BMP: 09/30/17 0520 09/30/17 1150 Significant Findings Laboratory Tests Test 09/28/17 05:33 09/29/17 04:51 09/30/17 05:20 09/30/17 11:50 Blood Urea Nitrogen 33 MG/DL (7-18) 47 MG/DL (7-18) 52 MG/DL (7-18) 49 MG/DL (7-18) Creatinine 2.01 MG/DL (0.60-1.30) 2.09 MG/DL (0.60-1.30) 2.13 MG/DL (0.60-1.30) 2.27 MG/DL (0.60-1.30) Potassium Level 3.3 MEQ/L (3.5-5.1) 3.1 MEQ/L (3.5-5.1) 2.9 MEQ/L (3.5-5.1) Estimat Glomerular Filtration Rate 33 ML/MIN (>89) 31 ML/MIN (>89) 31 ML/MIN (>89) 28 ML/MIN (>89) Platelet Count 125 TH/MM3 (150-450) B-Type Natriuretic Peptide 171 PG/ML (0-100) Random Glucose 199 MG/DL (74-106) Imaging Last Impressions Chest CT 09/29/17 0000 Signed Impressions: Service Date/Time: Friday, September 29, 2017 16:22 - CONCLUSION: Extensive coronary calcifications. Minimal nonspecific parenchymal changes right base. There is no significant adenopathy. Greg Ceron MD FACR Chest X-Ray 09/28/17 0000 Signed Impressions: Service Date/Time: Thursday, September 28, 2017 09:47 - CONCLUSION: Bibasilar densities likely atelectasis. Chucky Hough MD Lower Extremity Ultrasound 09/25/17 0000 Signed Impressions: Service Date/Time: September 09:53 - CONCLUSION: 1. Negative exam with no evidence of deep venous thrombosis. 2. Bilateral lower extremity edema. Salvador Graves MD PE at Discharge GENERAL: This is a well-nourished, well-developed patient, in no apparent distress. CARDIOVASCULAR: Regular rate and rhythm without murmurs, gallops, or rubs. RESPIRATORY: No wheezes, rhonchi. Minimal rales bilateral lower lobe. GASTROINTESTINAL: Abdomen soft, non-tender, nondistended. Bowel Sounds hypoactive. MUSCULOSKELETAL: Extremities without clubbing, cyanosis. Bilateral lower extremity +2 edema. NEUROLOGICAL: Awake and alert. Oriented to time, place, person. No focal neuro deficit. Moves all extremities. Normal speech. Hospital Course 72-year-old male with a past medical history significant for CHF, CAD, hypertension and history of renal cell carcinoma status post nephrectomy presents to the emergency department for further evaluation of CHF exacerbation. The patient was being seen by Dr. Alexandre in his office when he was sent to the emergency department for diuresis and further evaluation. He endorses intermittent chest tightness for 2 months although denies any current chest pain or pressure. NSTEMI Acute exacerbation of systolic CHF - EF 44% in 08/2017 per cardiology. - Troponins elevated 0.22, 0.54, 0.78. BNP 539. Patient reported intermittent chest pain in the last two months. - Troponin is down to 0.59. Cardiology is planning to perform Cath on 2017. - Continue Lipitor 80mg QHS. - Patient was on IV lasix and metolazone. Cleared by nephro to have torsemide as OP. To folow up as OP with nephro. - Reports diuresis. 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 Plan to have gentle hydration while keeping patient on diuretics - Torsemide BID. Plan for cardiac cath 09/30/17. Received IVF and mucomyst, nephro ff. Risk of contrast nephropathy with cardiac cath patient/family aware. DC lasiz and metolazone. Will have torsemide as OP. Likely will hold cardiac cath today - Monitor on Telemetry CAD s/p CABG X 3v. - continue Aspirin, Carvedilol, Lasix, Hydralazine, Imdur. Hypokalemia CKD Stage III Hx of Renal cell carcinoma s/p right nephrectomy. - continue 20meQ Qday. Give extra 40 meq IV KCL and 50 meq PO potassium bicarb today as patient with persistent low K - Avoid nephrotoxins. 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 Also received Mucomyst . Hx of PE - patient has IVC filter. Constipation - Milk of magnesia. Lactulose. Bowel regimen. - Monitor BM Full code. Lovenox for DVT prophylaxis. Discussed patient, nursing Discharge Planning Plan for cardiac catheterization 09/30/17, however for now on hold per cardio, poss tomorrow cardiac cath. Patient at high risk of contrast nephropathy received gentle IVF, Mucomyst, pt/family aware of risk. Replace K and monitor kidney function. Repeat K is back to normal. Cleared by cardiology and nephro for DC to have follow up as OP . Will have cardiac cath as OP Pt Condition on Discharge: Stable Discharge Disposition: Discharge Home Discharge Time: > 30 minutes Discharge Instructions DIET: Follow Instructions for: Heart Healthy Diet, Renal Failure Diet Activities you can perform: Regular-No Restrictions Follow up Referrals: Cardiology - 10/06/17 Nephrology - 1 Week PCP Follow-up - 2-3 Days New Orders: BASIC METABOLIC PROF - 2-3 Days New Medications: Atorvastatin (Atorvastatin) 80 Mg Tab 80 MG PO HS for Blood Pressure Management, #30 TAB Hydralazine HCl (Hydralazine HCl) 25 Mg Tablet 25 MG PO Q8H for Blood Pressure Management, #60 MG Isosorbide Mononitrate ER (Isosorbide Mononitrate ER) 30 Mg Mira 30 MG PO DAILY@07 for Blood Pressure Management, #30 TAB Continued Medications: Allopurinol (Allopurinol) 100 Mg Tab 100 MG PO DAILY for Gout, #30 TAB 0 Refills Aspirin (Aspirin) 81 Mg Chew 81 MG CHEW DAILY, TAB 0 Refills Carvedilol (Coreg) 25 Mg Tab 25 MG PO BID, #60 TAB 0 Refills Tamsulosin (Tamsulosin) 0.4 Mg Cap 0.8 MG PO HS for Manage Prostate Problems, #60 CAP 0 Refills Torsemide (Torsemide) 20 Mg Tab 20 MG PO DAILY, #30 TAB 0 Refills Tatiana Shelley MD Sep 30, 2017 16:26
== END 2017-09-30 18:07 | disposition home or self-care (01) | DRG 280 ==
LOC: NEPC 17:02 → INTOOBSV 19:11 → NEDA 19:11 → NEPHCDU 22:25 → OBSVTOIN 09-29 09:01 → HCIS 09-29 20:11
PROVIDERS: ADMIT Hospitalist; ATTEND Hospitalist
DX: I13.0 Hypertensive heart and chronic kidney disease with heart failure and stage 1 through stage 4 chronic kidney disease, or unspecified chronic kidney disease (principal); I50.23 Acute on chronic systolic (congestive) heart failure; I21.4 Non-ST elevation (NSTEMI) myocardial infarction; D69.6 Thrombocytopenia, unspecified; N18.3 Chronic kidney disease, stage 3 (moderate); I44.7 Left bundle-branch block, unspecified; Z95.1 Presence of aortocoronary bypass graft; I25.10 Atherosclerotic heart disease of native coronary artery without angina pectoris; Z85.528 Personal history of other malignant neoplasm of kidney; Z90.5 Acquired absence of kidney; Z82.49 Family history of ischemic heart disease and other diseases of the circulatory system; I44.0 Atrioventricular block, first degree; Z86.711 Personal history of pulmonary embolism; E78.5 Hyperlipidemia, unspecified; E66.9 Obesity, unspecified; N40.0 Benign prostatic hyperplasia without lower urinary tract symptoms; E87.6 Hypokalemia; I25.5 Ischemic cardiomyopathy; K59.00 Constipation, unspecified
CPT/HCPCS: 71046; 71250; 80048; 80053; 82550; 83735; 83880; 84484; 85025; 85027; 85610; 85730; 93005; 93306; 93970; 96372; 96376; G0378; G8987-GP; G8988-GP; G8989-GP; J1644; J1650; J1940; J7030

== ENCOUNTER 2017-10-15 06:29 | Observation (INO) | payer MEDICARE, BC ==
[2017-10-15] VITALS (15 sets, daily range): BP systolic 122–199; BP diastolic 71–101; PULSE 48–63; RESP 16–26; TEMP 97.6–98.5; O2SAT 94–98
[~2017-10-15] VITALS: Ht 182.9 cm; Wt 124.5 kg
[~2017-10-15 06:29] MED LIST changes: +ASPI-516 CHEW; -ASPI81TA82 PO; -ATOR40TA PO; +ATOR80TA45 PO; +CORE25TA PO; -COUM5TAB PO; -FURO80TA3 PO; +HYDR-3799 PO; +ISOS30TA3 PO; -KLOR20TA6 PO; -METO100T PO; +TAMS0.4C4 PO; -TAMS0.4C67 PO; +TORS20TA PO
--- NOTE | 2017-10-15 07:09 | PD ---
HPI Chief Complaint: Respiratory Symptoms Time Seen by Provider: 06:32 Travel History International Travel<30 days: No Contact w/Intl Traveler<30days: No Traveled to known affect area: No History of Present Illness HPI The patient is a 72 year old male who presents to the [facility] emergency department with a history of awakening from sound sleep between 4 and 4:30 AM with a sensation of nausea. He quickly got up and began to have shortness of breath. He denies any vomiting. He denies having any chest pain just a sensation of difficulty taking a deep breath. The patient does report having a history of coronary artery disease and congestive heart failure. He is followed by Dr. Alexandre for his cardiac care. He was recently admitted to the hospital in August for a congestive heart failure exacerbation. 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 He reports that his lower extremity edema is actually improved compared to previously. He reports that he is on a diuretic, however he cannot recall the name of it. The patient reports having diaphoresis with the shortness of breath. He denies having any recent significant cough. He denies having any recent fevers. Otherwise in review of systems, the patient denies having any neck pain, abdominal pain, vomiting, diarrhea, urinary symptoms, or neurologic symptoms. ON LICENSE OF [facility] Past Medical History Narrative Medical The patient's past medical history is significant for coronary artery disease, congestive heart failure, hypertension, history of renal cell carcinoma status post right nephrectomy in 2012. Blood Disorders: No Cancer: Yes (Kidney) Cardiac Catheterization: Yes (ANGIOPLASTY DONE) Cardiovascular Problems: Yes High Cholesterol: Yes Chest Pain: Yes Congestive Heart Failure: Yes Coronary Artery Disease: Yes Diminished Hearing: No Endocrine: No Genitourinary: Yes (ENLARGED PROSTATE) Hypertension: Yes Immune Disorder: No Implanted Vascular Access Dvce: Yes Musculoskeletal: No Neurologic: No Psychiatric: No Reproductive: No Respiratory: Yes Immunizations Current: Yes Myocardial Infarction: Yes Influenza Vaccination: Yes Past Surgical History Narrative Surgical The patient's past surgical history is significant for coronary artery bypass grafting in 2013, history of right nephrectomy, cholecystectomy Body Medical Devices: VENA CAVA FILTER Cholecystectomy: Yes Coronary Artery Bypass Graft: Yes Genitourinary Surgery: Yes (RIGHT KIDNEY REMOVED ) Other Surgery: Yes (CABG, RIGHT NEPHRECTOMY, CHOLCYSTECTOMY, ANGIOPLASTY) Social History Alcohol Use: Yes (OCCASIONAL) Tobacco Use: No (quit in 1989) Substance Use: No Allergies-Medications (Allergen,Severity, Reaction): Coded Allergies: No Known Allergies (Verified Allergy, Unknown, 09/24/17) Reported Meds & Prescriptions Reported Meds & Active Scripts Active Atorvastatin (Atorvastatin Calcium) 80 Mg Tab 80 Mg PO HS Isosorbide Mononitrate ER (Isosorbide Mononitrate) 30 Mg Mira 30 Mg PO DAILY@07 Hydralazine HCl 25 Mg Tablet 25 Mg PO Q8H Reported Aspirin 81 Mg Chew 81 Mg CHEW DAILY Allopurinol 100 Mg Tab 100 Mg PO DAILY Tamsulosin (Tamsulosin HCl) 0.4 Mg Cap 0.8 Mg PO HS Torsemide 20 Mg Tab 20 Mg PO DAILY Coreg (Carvedilol) 25 Mg Tab 25 Mg PO BID Review of Systems Except as stated in HPI: all other systems reviewed are Neg General / Constitutional: No: Fever Eyes: No: Visual changes HENT: No: Headaches Cardiovascular: Positive: Dyspnea on exertion, No: Chest Pain or Discomfort Respiratory: Positive: Shortness of Breath, Orthopnea Gastrointestinal: Positive: Nausea, No: Vomiting, Abdominal Pain Genitourinary: No: Dysuria Musculoskeletal: No: Pain Skin: No Rash Neurologic: No: Weakness, Focal Abnormalities, Change in Mentation, Slurred Speech, Sensory Disturbance Psychiatric: No: Depression Endocrine: No: Polydipsia Hematologic/Lymphatic: No: Easy Bruising Physical Exam Narrative General: The patient is a well-developed well-nourished male in no acute distress. Head and Neck exam: Head is normocephalic atraumatic. Eyes: EOMI, pupils are equal round and reactive to light. Nose: Midline septum with pink mucous membranes Mouth: Dentition unremarkable. Moist mucus membranes. Posterior oropharynx is not erythematous. No tonsillar hypertrophy. Uvula midline. Airway patent. Neck: No palpable lymphadenopathy. No nuchal rigidity. No thyromegaly. Cardiovascular: Regular rate and rhythm without murmurs, gallops, or rubs. Lungs: Crackles are audible in bilateral lower lung davis, no wheezes or rhonchi. Decreased breath sounds in bilateral bases. No accessory muscle use noted. No paroxysmal abdominal breathing or tripoding. Abdomen: Soft, without tenderness to palpation in all 4 quadrants of the abdomen. No guarding, rebound, or rigidity. Normal bowel sounds are audible. No tenderness on palpation of McBurney's point. Extremities: No clubbing or cyanosis. The patient has 2+ pitting edema bilateral lower extremities. No calf tenderness on palpation. 2+ pulses in all 4 extremities. Back: No costovertebral angle tenderness to palpation. Neurologic Exam: Grossly nonfocal. Skin Exam: No rash noted. Intact skin that is warm and dry. Data Data Last Documented VS Vital Signs Date Time Temp Pulse Resp B/P (MAP) Pulse Ox O2 Delivery O2 Flow Rate FiO2 10/15/17 06:39 96 Nasal Cannula 2.00 10/15/17 06:37 98.5 63 22 172/82 (112) Orders Orders Electrocardiogram (10/15/17 07:02) Complete Blood Count With Diff (10/15/17 07:02) Comprehensive Metabolic Panel (10/15/17 07:02) Creatine Kinase (Cpk) (10/15/17 07:02) Ckmb (Isoenzyme) Profile (10/15/17 07:02) Troponin I (10/15/17 07:02) B-Type Natriuretic Peptide (10/15/17 07:02) Prothrombin Time / Inr (Pt) (10/15/17 07:02) Act Partial Throm Time (Ptt) (10/15/17 07:02) Lipase (10/15/17 07:02) Magnesium (Mg) (10/15/17 07:02) Chest, Single Ap (10/15/17 07:02) Iv Access Insert/Monitor (10/15/17 07:02) Ecg Monitoring (10/15/17 07:02) Oxygen Administration (10/15/17 07:02) Oximetry (10/15/17 07:02) Nitroglycerin 2% Oint (Nitroglycerin 2% (10/15/17 07:15) Ondansetron Inj (Zofran Inj) (10/15/17 07:15) MDM Medical Decision Making Medical Screen Exam Complete: Yes Emergency Medical Condition: Yes Medical Record Reviewed: Yes Differential Diagnosis Congestive heart failure exacerbation, versus pulmonary edema from renal failure , versus pneumonia, versus acute coronary syndrome Narrative Course During the course of the patient's emergency department visit, the patient's history, examination, and differential diagnosis were reviewed with the patient. The patient was placed on a director of cardiac rehabilitation with oximetry and frequent blood pressure monitoring. The patient had IV access obtained and blood work sent for analysis. The patient had an EKG done on arrival that shows a sinus rhythm with the heart rate of 64, QRS duration 128 milliseconds, QTc 486 ms, left anterior fascicular block noted, no acute ST segment elevation is noted. The patient was initially provided Zofran 4 mg IV, nitroglycerin 1 is the chest wall. The patient's laboratory studies and imaging studies are pending at the conclusion of my shift. The patient's case will be checked out to the oncoming emergency physician to disposition the patient based on the conclusion of his workup. I anticipate that the patient will require admission for continued evaluation and treatment. Diagnosis Primary Impression: Shortness of breath Additional Impression: Nausea April Bedolla MD Oct 15, 2017 07:09
[2017-10-15] MEDS ORDERED: NITROGLYCERIN 2% OINT 1 GM PACKET TOPICAL ONE (07:15)
[2017-10-15] MEDS ORDERED: ONDANSETRON HCL 4 MG/2 ML VIAL IV PUSH ONE (07:15)
--- NOTE | 2017-10-15 07:49 | EKG ---
Date Performed: 10/15/2017 Time Performed: 06:37:30 PTAGE: 72 years EKG: Sinus rhythm WITH FIRST DEGREE AV BLOCK LEFT ANTERIOR FASCICULAR BLOCK LEFT VENTRICULAR HYPERTROPHY AND ST-T SARGENT GE POSSIBLE ANTERIOR MYOCARDIAL INFARCTION ABNORMAL ECG NO PREVIOUS TRACING DOCTOR: Stanislav Jane Interpretating Date/Time 10/15/2017 07:48:45
--- NOTE | 2017-10-15 08:09 | RADRPT ---
EXAM DATE/TIME: 10/15/2017 07:25 [place] COMPARISON: CT THORAX W/O CONTRAST, September 29, 2017, 16:22. CHEST PA & LAT, September 28, 2017, 9:47. INDICATIONS : Shortness of breath. MEDICAL HISTORY : Hypertension. Myocardial infarction. Congestive heart failure. Kidney cancer. SURGICAL HISTORY : CABG. Nephrectomy, right. ENCOUNTER: Initial ACUITY: 1 day PAIN SCORE: 0/10 LOCATION: Bilateral chest FINDINGS: The patient is postmedian sternotomy. The heart is enlarged. There are diffuse interstitial changes. The relatively stable compared to previous dated 09/28/17. There is no pleural effusion. The bony structures demonstrate degenerative changes but are otherwise intact. CONCLUSION: 1. Chronic interstitial changes and cardiomegaly. Stable compared to prior exam. Chris Ceron MD on October 15, 2017 at 8:06 Board Certified Radiologist. This report was verified electronically.
[2017-10-15 08:23] LABS: AUTOMATED NEUTROPHIL # 3.7 TH/MM3 (1.8-7.7); BASOPHIL % 0.5 % (0.0-2.0); EOSINOPHIL # 0.3 TH/MM3 (0-0.4); EOSINOPHIL % 5.3 % (0.0-4.0); HEMATOCRIT 44.1 % (39.0-51.0); HEMOGLOBIN 14.7 GM/DL (13.0-17.0); LYMPH % 29.1 % (9.0-44.0); LYMPHOCYTE # 1.9 TH/MM3 (1.0-4.8); MEAN CELL VOLUME 90.1 FL (80.0-100.0); MEAN CORPUSCULAR HGB CONC 33.3 % (32.0-36.0); MEAN PLATELET VOLUME 7.8 FL (7.0-11.0); MONO % 8.5 % (0.0-8.0); MONOCYTE # 0.6 TH/MM3 (0-0.9); NEUT % 56.6 % (16.0-70.0); PLATELET COUNT 142 TH/MM3 (150-450); WHITE BLOOD COUNT 6.6 TH/MM3 (4.0-11.0)
[2017-10-15 08:33] LABS: INTERNATIONAL NORMALIZED RATIO 1.2 RATIO; PROTHROMBIN TIME - PATIENT 12.1 SEC (9.8-11.6)
[2017-10-15 08:44] LABS: ALT (GPT) 20 U/L (12-78); AST (GOT) 25 U/L (15-37); BICARBONATE 27.6 MEQ/L (21.0-32.0); BLOOD UREA NITROGEN 22 MG/DL (7-18); CALCIUM 8.2 MG/DL (8.5-10.1); CHLORIDE 110 MEQ/L (98-107); CREATININE 1.94 MG/DL (0.60-1.30); GLOMERULAR FILTRATION RATE 34 ML/MIN (>89); GLUCOSE,RANDOM 88 MG/DL (74-106); MAGNESIUM 2.1 MG/DL (1.5-2.5); SODIUM (NA) 145 MEQ/L (136-145)
[2017-10-15 08:48] LABS: ALKALINE PHOSPHATASE 111 U/L (45-117); TOTAL BILIRUBIN ADULT 0.5 MG/DL (0.2-1.0); TOTAL PROTEIN 6.9 GM/DL (6.4-8.2); TROPONIN I 0.14 NG/ML (0.02-0.05)
--- NOTE | 2017-10-15 14:45 | PD ---
Data Data Last Documented VS Vital Signs Date Time Temp Pulse Resp B/P (MAP) Pulse Ox O2 Delivery O2 Flow Rate FiO2 10/15/17 13:00 56 23 199/95 (129) 98 Nasal Cannula 2.00 10/15/17 06:37 98.5 Orders Orders Electrocardiogram (10/15/17 07:02) Complete Blood Count With Diff (10/15/17 07:02) Comprehensive Metabolic Panel (10/15/17 07:02) Creatine Kinase (Cpk) (10/15/17 07:02) Ckmb (Isoenzyme) Profile (10/15/17 07:02) Troponin I (10/15/17 07:02) B-Type Natriuretic Peptide (10/15/17 07:02) Prothrombin Time / Inr (Pt) (10/15/17 07:02) Act Partial Throm Time (Ptt) (10/15/17 07:02) Lipase (10/15/17 07:02) Magnesium (Mg) (10/15/17 07:02) Chest, Single Ap (10/15/17 07:02) Iv Access Insert/Monitor (10/15/17 07:02) Ecg Monitoring (10/15/17 07:02) Oxygen Administration (10/15/17 07:02) Oximetry (10/15/17 07:02) Nitroglycerin 2% Oint (Nitroglycerin 2% (10/15/17 07:15) Ondansetron Inj (Zofran Inj) (10/15/17 07:15) CKMB (10/15/17 07:00) CKMB% (10/15/17 07:00) Diet Heart Healthy (10/15/17 Lunch) Admit Order (Ed Use Only) (10/15/17 14:40) Labs Laboratory Tests Test 10/15/17 07:00 White Blood Count 6.6 TH/MM3 Red Blood Count 4.90 MIL/MM3 Hemoglobin 14.7 GM/DL Hematocrit 44.1 % Mean Corpuscular Volume 90.1 FL Mean Corpuscular Hemoglobin 30.0 PG Mean Corpuscular Hemoglobin Concent 33.3 % Red Cell Distribution Width 13.0 % Platelet Count 142 TH/MM3 Mean Platelet Volume 7.8 FL Neutrophils (%) (Auto) 56.6 % Lymphocytes (%) (Auto) 29.1 % Monocytes (%) (Auto) 8.5 % Eosinophils (%) (Auto) 5.3 % Basophils (%) (Auto) 0.5 % Neutrophils # (Auto) 3.7 TH/MM3 Lymphocytes # (Auto) 1.9 TH/MM3 Monocytes # (Auto) 0.6 TH/MM3 Eosinophils # (Auto) 0.3 TH/MM3 Basophils # (Auto) 0.0 TH/MM3 CBC Comment DIFF FINAL Differential Comment Prothrombin Time 12.1 SEC Prothromb Time International Ratio 1.2 RATIO Activated Partial Thromboplast Time 29.9 SEC Blood Urea Nitrogen 22 MG/DL Creatinine 1.94 MG/DL Random Glucose 88 MG/DL Total Protein 6.9 GM/DL Albumin 3.0 GM/DL Calcium Level 8.2 MG/DL Magnesium Level 2.1 MG/DL Alkaline Phosphatase 111 U/L Aspartate Amino Transf (AST/SGOT) 25 U/L Alanine Aminotransferase (ALT/SGPT) 20 U/L Total Bilirubin 0.5 MG/DL Sodium Level 145 MEQ/L Potassium Level 3.9 MEQ/L Chloride Level 110 MEQ/L Carbon Dioxide Level 27.6 MEQ/L Anion Gap 7 MEQ/L Estimat Glomerular Filtration Rate 34 ML/MIN Total Creatine Kinase 104 U/L Creatine Kinase MB 1.2 NG/ML Troponin I 0.14 NG/ML B-Type Natriuretic Peptide 497 PG/ML Lipase 121 U/L [facility] Supervised Visit with LEANN: No Narrative Course This case was checked out to me by Dr. Bedolla. I reviewed the entire to the workup including labs and EKG and chest x-ray. I reevaluated the patient. He is not having any chest pain. His shortness of breath has spontaneously improved. He does have significant symmetric bilateral extremity pitting edema Chest x-ray shows no pulmonary edema however General labs are reasonably normal and his cardiac enzymes reveal a slightly elevated troponin but much improved from prior He has renal insufficiency which is not new I placed a call to Dr. Alexandre, the patient's segmental paving supervisor to discuss his prior notes reveal he was planned to get a catheterization in the near future I was advised that Dr. cheema would be coming to see the patient at noon to figure out a disposition We placed a courtesy call to him when he had not come by 1:30 PM and he advised us to hospitalize the patient and he would see him later this afternoon Diagnosis Primary Impression: Shortness of breath Additional Impressions: Nausea CKD (chronic kidney disease) stage 3, GFR 30-59 ml/min Admitting Information Admitting Physician Requests: Observation Hola Mohan MD Oct 15, 2017 14:45
[2017-10-15] MEDS ORDERED: SODIUM CHLORIDE 0.9% FLUSH 10 ML FLUSH IV FLUSH PRN (15:30)
[2017-10-15] MEDS ORDERED: NALOXONE HCL 0.4 MG/ML AMP IV PUSH PRN (15:30)
--- NOTE | 2017-10-15 16:18 | HHI.HP ---
[facility] Unknown Admission Diagnosis dyspnea,edema,CAD,renal insuff Diagnoses: Travel History International Travel<30 Days: No Contact w/Intl Traveler <30 Da: No Traveled to Known Affected Are: No History of Present Illness History from patient, at the bedside, ER physician, and review of medical records. Patient reported that around 5 AM this morning, he was awakened by chest pain. He reports is more of a pressure at the center of his chest. No radiation. Reports he was sweating at the time, nauseous. But did not vomit. He did not take nitroglycerin but he did take aspirin and reports that it relieved his symptoms a bit. He then called 911 right away. Reports that he was given nitroglycerin by EMS and his symptoms got much better. In the emergency room, patient was started on Nitropaste. Patient reports after this Nitropaste, his symptoms are completely gone. He also reports of shortness of breath but states that this is somewhat of his baseline. He also has significant peripheral edema which he believes is baseline but in fact improving in the past 2 weeks since last discharge because he was started on torsemide. Denies having any changes in the medications since discharge from hospital. Patient has history of renal cell carcinoma for which she had right nephrectomy. Per patient and also per prior records from his hogshead filler on EMR, patient had abnormal stress test recently. He was told by his hogshead filler to make an appointment with Dr. Segundo to have angiogram done an outpatient. They were cautious because of his renal failure. However why patient call Dr. Segundo's office, he was told that he has to have workup with his own hogshead filler. In the emergency room, patient's case was discussed with Dr. Middleton by ER physician since pt's hogshead filler Dr Sanches is on vacation Review of Systems Except as stated in HPI: all other systems reviewed are Neg Past Family Social History Past Medical History htn cad cabg- 5 yrs ago - has had some outpatient chemical or nuclear stress test - abnormal chf- echo 09/26/17- limited, but both systolic and diastolic dysfunction hx of DVT s/p IVC filter- 09/25/17 here DVT studies negative ; about 4 yrs ago kidney cancer- s/p right nephrectomy- about 5 yrs ago ; RCC Past Surgical History cabg nephrectomy right cholecystectomy Allergies: Coded Allergies: No Known Allergies (Verified Allergy, Unknown, 10/15/17) Family History father- heart issues Social History half a pack a day , quit 20 yrs ago no etoh abuse no drugs abuse still driving Physical Exam Vital Signs Vital Signs Date Time Temp Pulse Resp B/P (MAP) Pulse Ox O2 Delivery O2 Flow Rate FiO2 10/15/17 13:00 56 23 199/95 (129) 98 Nasal Cannula 2.00 10/15/17 12:00 56 26 197/99 (131) 97 Nasal Cannula 2.00 10/15/17 11:00 54 21 184/93 (123) 97 Nasal Cannula 2.00 10/15/17 10:52 55 16 186/93 (124) 96 Nasal Cannula 2.00 10/15/17 10:00 58 25 176/84 (114) 95 Nasal Cannula 2.00 10/15/17 09:00 56 25 190/101 (130) 97 Nasal Cannula 2.00 10/15/17 08:00 56 21 178/89 (118) 96 Nasal Cannula 2.00 10/15/17 07:21 59 26 175/85 (115) 96 Nasal Cannula 2.00 10/15/17 07:18 97 Nasal Cannula 2.00 10/15/17 07:18 97 Nasal Cannula 2.00 10/15/17 06:39 96 Nasal Cannula 2.00 10/15/17 06:37 98.5 63 22 172/82 (112) 94 Physical Exam GENERAL: This is a well-nourished, well-developed patient, in no apparent distress. SKIN: No rashes, ecchymoses or lesions. Cool and dry. HEAD: Atraumatic. Normocephalic. No temporal or scalp tenderness. EYES: No scleral icterus. No injection or drainage. ENT: Nose without bleeding, purulent drainage or septal hematoma. Airway patent. NECK: Trachea midline. No JVD. Supple, nontender, no meningeal signs. CARDIOVASCULAR: Regular rate and rhythm without murmurs, gallops, or rubs. RESPIRATORY: Clear to auscultation. Breath sounds equal bilaterally. No wheezes , rales, or rhonchi. GASTROINTESTINAL: Abdomen soft, non-tender, nondistended. No guarding. MUSCULOSKELETAL: Extremities without clubbing, cyanosis, or edema. No calf tenderness. NEUROLOGICAL: Awake and alert. Motor and sensory grossly within normal limits. Normal speech. Laboratory Laboratory Tests Test 10/15/17 07:00 White Blood Count 6.6 Red Blood Count 4.90 Hemoglobin 14.7 Hematocrit 44.1 Mean Corpuscular Volume 90.1 Mean Corpuscular Hemoglobin 30.0 Mean Corpuscular Hemoglobin Concent 33.3 Red Cell Distribution Width 13.0 Platelet Count 142 Mean Platelet Volume 7.8 Neutrophils (%) (Auto) 56.6 Lymphocytes (%) (Auto) 29.1 Monocytes (%) (Auto) 8.5 Eosinophils (%) (Auto) 5.3 Basophils (%) (Auto) 0.5 Neutrophils # (Auto) 3.7 Lymphocytes # (Auto) 1.9 Monocytes # (Auto) 0.6 Eosinophils # (Auto) 0.3 Basophils # (Auto) 0.0 CBC Comment DIFF FINAL Differential Comment Prothrombin Time 12.1 Prothromb Time International Ratio 1.2 Activated Partial Thromboplast Time 29.9 Blood Urea Nitrogen 22 Creatinine 1.94 Random Glucose 88 Total Protein 6.9 Albumin 3.0 Calcium Level 8.2 Magnesium Level 2.1 Alkaline Phosphatase 111 Aspartate Amino Transf (AST/SGOT) 25 Alanine Aminotransferase (ALT/SGPT) 20 Total Bilirubin 0.5 Sodium Level 145 Potassium Level 3.9 Chloride Level 110 Carbon Dioxide Level 27.6 Anion Gap 7 Estimat Glomerular Filtration Rate 34 Total Creatine Kinase 104 Creatine Kinase MB 1.2 Troponin I 0.14 B-Type Natriuretic Peptide 497 Lipase 121 Result Diagram: 10/15/17 0710/15/17 07 Caprini VTE Risk Assessment Caprini VTE Risk Assessment: Mod/High Risk (score >= 2) Caprini Risk Assessment Model Point Value = 1 Point Value = 2 Point Value = 3 Point Value = 5 Age 41-60 Minor surgery BMI > 25 kg/m2 Swollen legs Varicose veins or History of unexplained or recurrent spontaneous Oral contraceptives or hormone replacement Sepsis (< 1 month) Serious lung disease, including pneumonia (< 1 month) Abnormal pulmonary function Acute myocardial infarction Congestive heart failure (< 1 month) History of inflammatory bowel disease Medical patient at bed rest Age 61-74 Arthroscopic surgery Major open surgery (> 45 min) Laparoscopic surgery (> 45 min) Malignancy Confined to bed (> 72 hours) Immobilizing plaster cast Central venous access Age >= 75 History of VTE Family history of VTE Factor V Leiden Prothrombin [id number] Lupus anticoagulant Anticardiolipin antibodies Elevated serum homocysteine Heparin-induced thrombocytopenia Other congenital or acquired thrombophilia Stroke (< 1 month) Elective arthroplasty Hip, pelvis, or leg fracture Acute spinal cord injury (< 1 month) Prophylaxis Regimen Total Risk Factor Score Risk Level Prophylaxis Regimen 0-1 Low Early ambulation 2 Moderate Order ONE of the following: *Sequential Compression Device (SCD) *Heparin 5000 units SQ BID 3-4 Higher Order ONE of the following medications: *Heparin 5000 units SQ TID *Enoxaparin/Lovenox 40 mg SQ daily (WT < 150 kg, CrCl > 30 mL/min) *Enoxaparin/Lovenox 30 mg SQ daily (WT < 150 kg, CrCl > 10-29 mL/min) *Enoxaparin/Lovenox 30 mg SQ BID (WT < 150 kg, CrCl > 30 mL/min) AND/OR *Sequential Compression Device (SCD) 5 or more Highest Order ONE of the following medications: *Heparin 5000 units SQ TID (Preferred with Epidurals) *Enoxaparin/Lovenox 40 mg SQ daily (WT < 150 kg, CrCl > 30 mL/min) *Enoxaparin/Lovenox 30 mg SQ daily (WT < 150 kg, CrCl > 10-29 mL/min) *Enoxaparin/Lovenox 30 mg SQ BID (WT < 150 kg, CrCl > 30 mL/min) AND *Sequential Compression Device (SCD) Assessment and Plan Assessment and Plan Impression: unstable angina chf with siginficant peripheral edema ckd with right nephrectomy htn cad cabg- 5 yrs ago - has had some outpatient chemical or nuclear stress test - abnormal chf- echo 09/26/17- limited, but both systolic and diastolic dysfunction hx of DVT s/p IVC filter- 09/25/17 here DVT studies negative ; about 4 yrs ago kidney cancer- s/p right nephrectomy- about 5 yrs ago ; RCC Plan: serial enzymes cardiology evaluated asa nitro prn question whether pt should be on anticoagulation - or at least antiplatelet with plavix for cad will need to discuss this with hogshead filler resume home meds for now tele Discussed Condition With patient, ER MD, nursing staff Vipin Menchaca MD Oct 15, 2017 16:18
--- NOTE | 2017-10-15 16:18 | MB ---
cc: SHEREE MIDDLETON DATE OF CONSULTATION 10/15/2017 HISTORY OF THE PRESENT ILLNESS A 72-year-old white male with a history of coronary artery disease, coronary bypass and renal insufficiency presented after he woke up early this morning with shortness of breath, substernal chest pressure, diaphoresis and nausea. He also has had lower extremity edema. His symptoms are now improved. He is a patient of Dr. Alexandre and had discussion with him concerning cardiac catheterization. The patient had recent PET scan which was abnormal. The patient declined cardiac catheterization since he was concerned about nephrotoxicity and possibility of renal failure with contrast. PAST MEDICAL HISTORY Positive for: 1. Coronary artery disease. 2. Coronary artery bypass in 10/01/2012 at [facility]. 3. History of cardiomyopathy, ejection fraction was 44% by last echocardiogram. 4. There is history of renal cancer and nephrectomy in 2012. 5. History of hypertension. 6. Congestive heart failure. 7. Coronary intervention in the past. 8. Dyslipidemia. 9. BPH. 10. There is history of mild to moderate aortic insufficiency. 11. Obesity. 12. The patient has a history of vena cava filter. 13. Cholecystectomy. His last creatinine was 1.8. 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 ALLERGIES None. SOCIAL HISTORY The patient quit smoking in 1989. He drinks alcohol occasionally. He is accompanied by his . MEDICATIONS Include: 1. Coreg. 2. Torsemide. 3. Tamsulosin. 4. Allopurinol. 5. Aspirin. 6. Hydralazine. 7. Isosorbide. 8. Atorvastatin. FAMILY HISTORY Positive for heart disease in his father. REVIEW OF SYSTEMS Otherwise negative. PHYSICAL EXAMINATION VITAL SIGNS: Blood pressure 199/95, pulse 56 and regular. HEENT: Negative. 2+ carotid upstrokes. No bruits. LUNGS: With a few bibasilar crackles. HEART: Regular with no murmur, gallop or rub. ABDOMEN: Soft. No bruits. EXTREMITIES: With 2+ pitting edema. 1-2+ distal pulses. NEUROLOGIC: Examination is grossly nonfocal. EKG was reviewed and showed normal sinus rhythm, left axis, left anterior fascicular block, poor R wave progression in the precordial leads suggestive of anterior wall myocardial infarction, first-degree AV block. LABORATORY DATA Hemoglobin 14.7. Potassium 3.9, creatinine 1.94. Troponin 0.14. BNP 497. AST and ALT normal. DIAGNOSES 1. Dyspnea. 2. Chest pain. 3. Coronary artery disease, history of coronary artery bypass. 4. Chronic kidney disease, status post nephrectomy. 5. Mildly elevated troponin secondary to chronic kidney disease. 6. Cardiomyopathy with mild left ventricular dysfunction. 7. Mild to moderate aortic insufficiency. 8. Hypertension. 9. Dyslipidemia. 10. Congestive heart failure. DISPOSITION Mr. Herrera will be monitored on telemetry. We will obtain serial enzymes and EKGs. If he remains stable, he will be discharged home tomorrow. The patient will be scheduled to see Dr. Alexandre in his office shortly after discharge as outpatient to have a discussion again about cardiac catheterization and coronary intervention if necessary. This was discussed with the patient and his , and they understand the plan. Sheree Middleton MD OQ/KK /3:19 PM /3:47 PM MIYA
[2017-10-15 17:09] LABS: TROPONIN I 0.14 NG/ML (0.02-0.05)
[2017-10-15 17:20] LABS: BICARBONATE 23.2 MEQ/L (21.0-32.0); CALCIUM 6.4 MG/DL (8.5-10.1); CREATININE 1.41 MG/DL (0.60-1.30)
[2017-10-15 17:36] LABS: TOTAL PROTEIN 5.2 GM/DL (6.4-8.2)
[2017-10-15 17:40] LABS: CALCIUM-PROTEIN CORRECTED 7.3 MG/DL (8.5-10.1)
[2017-10-15] MEDS: TORSEMIDE 20 MG TAB PO SCH (18:14)
[2017-10-15] MEDS: hydrALAZINE HCL 25 MG TAB PO SCH (18:14)
[2017-10-15] MEDS ORDERED: CALCIUM GLUCONATE 10% 1 GM/10 ML VIAL IV PUSH ONE (20:00)
[2017-10-15] MEDS ORDERED: CALCIUM ACETATE 667 MG CAP PO ONE (20:00)
[2017-10-15] MEDS ORDERED: POTASSIUM CHLORIDE 20 MEQ CONTROLLED RELEASE TAB PO ONE (20:00)
[2017-10-15] MEDS ORDERED: CALCIUM GLUCONATE INJ 1 GM in SODIUM CHLORIDE 0.9% INJ 100 ML IV ONE (20:30)
[2017-10-15] MEDS: SODIUM CHLORIDE 0.9% FLUSH 10 ML FLUSH IV FLUSH SCH (21:00)
[2017-10-15] MEDS ORDERED: TAMSULOSIN HCL 0.4 MG CAP PO SCH (21:00)
[2017-10-15] MEDS ORDERED: ATORVASTATIN 80 MG TAB PO SCH (21:00)
[2017-10-15 21:31] LABS: TROPONIN I 0.18 NG/ML (0.02-0.05)
[2017-10-15] MEDS: CARVEDILOL 12.5 MG TAB PO SCH (22:00)
[2017-10-16] VITALS (9 sets, daily range): BP systolic 132–189; BP diastolic 79–103; PULSE 59–63; RESP 18; TEMP 97.4–97.9; O2SAT 94–96
[2017-10-16] MEDS: hydrALAZINE HCL 25 MG TAB PO SCH ×2 (00:43→08:00)
[2017-10-16] MEDS ORDERED: ENALAPRILAT 2.5 MG/2 ML VIAL IV PUSH ONE (04:30)
[2017-10-16] MEDS ORDERED: ISOSORBIDE MONONITRATE 30 MG CR TAB (IMDUR) PO SCH (07:00)
[2017-10-16 07:08] LABS: AUTOMATED NEUTROPHIL # 4.5 TH/MM3 (1.8-7.7); BASOPHIL % 0.4 % (0.0-2.0); EOSINOPHIL # 0.4 TH/MM3 (0-0.4); EOSINOPHIL % 5.5 % (0.0-4.0); HEMATOCRIT 44.8 % (39.0-51.0); HEMOGLOBIN 15.5 GM/DL (13.0-17.0); LYMPH % 27.5 % (9.0-44.0); LYMPHOCYTE # 2.2 TH/MM3 (1.0-4.8); MEAN CELL VOLUME 88.7 FL (80.0-100.0); MEAN CORPUSCULAR HEMOGLOBIN 30.7 PG (27.0-34.0); MEAN CORPUSCULAR HGB CONC 34.6 % (32.0-36.0); MEAN PLATELET VOLUME 7.7 FL (7.0-11.0); MONO % 9.5 % (0.0-8.0); MONOCYTE # 0.8 TH/MM3 (0-0.9); NEUT % 57.1 % (16.0-70.0); PLATELET COUNT 126 TH/MM3 (150-450); RED BLOOD COUNT 5.05 MIL/MM3 (4.50-5.90); RED CELL DISTRIBUTION WIDTH 13.1 % (11.6-17.2); WHITE BLOOD COUNT 7.9 TH/MM3 (4.0-11.0)
[2017-10-16 07:35] LABS: BICARBONATE 25.2 MEQ/L (21.0-32.0); CALCIUM 8.6 MG/DL (8.5-10.1); CREATININE 1.71 MG/DL (0.60-1.30)
[2017-10-16] MEDS ORDERED: ASPIRIN 81 MG CHEW TAB CHEW SCH (09:00)
--- NOTE | 2017-10-16 10:12 | PD.CARD.PN ---
Subjective Subjective Remarks No CP, mild SOB, ambulating in the room Objective Medications Current Medications Medications (Trade) Dose Ordered Sig/Kareen Route Start Time Stop Time Status Last Admin (NS Flush) 2 ml UNSCH PRN IV FLUSH 10/15/17 15:30 (NS Flush) 2 ml BID IV FLUSH 10/15/17 21:00 (Narcan Inj) 0.4 mg UNSCH PRN IV PUSH 10/15/17 15:30 (Aspirin Chew) 81 mg DAILY CHEW 10/16/17 09:00 (Lipitor) 80 mg HS PO 10/15/17 21:00 10/15/17 21:59 (Coreg) 25 mg BID PO 10/15/17 21:00 10/15/17 22:00 (Imdur) 30 mg DAILY@07 PO 10/16/17 07:00 10/16/17 06:53 (Flomax) 0.8 mg HS PO 10/15/17 21:00 10/15/17 21:59 (Demadex) 20 mg DAILY PO 10/15/17 15:45 10/15/17 18:14 (Plavix) 75 mg DAILY PO 10/17/17 09:00 (Apresoline) 50 mg Q8H PO 10/16/17 16:00 UNV Vital Signs / I&O Vital Signs Date Time Temp Pulse Resp B/P (MAP) Pulse Ox O2 Delivery O2 Flow Rate FiO2 10/16/17 08:55 97.4 62 18 173/97 (122) 94 10/16/17 06:50 61 181/99 (126) 10/16/17 04:45 63 189/103 (131) 10/16/17 04:03 59 10/16/17 03:59 97.9 62 18 188/100 (129) 94 10/16/17 00:34 97.8 61 18 188/97 (127) 96 10/15/17 23:58 60 10/15/17 21:15 98.1 58 18 170/81 (110) 96 10/15/17 19:30 52 10/15/17 17:30 97.6 48 20 146/74 (98) 96 10/15/17 16:44 10/15/17 16:06 54 22 122/71 (88) 98 Nasal Cannula 2.00 10/15/17 13:00 56 23 199/95 (129) 98 Nasal Cannula 2.00 10/15/17 12:00 56 26 197/99 (131) 97 Nasal Cannula 2.00 10/15/17 11:00 54 21 184/93 (123) 97 Nasal Cannula 2.00 10/15/17 10:52 55 16 186/93 (124) 96 Nasal Cannula 2.00 I/O 10/15/17 10/15/17 10/15/17 10/16/17 10/16/17 10/16/17 07:00 15:00 23:00 07:00 15:00 23:00 Intake Total 110 ml Balance 110 ml Intake IV Total 110 ml # Voids 1 Physical Exam GENERAL: In NAD. SKIN: Warm and dry. HEAD: Normocephalic. EYES: No scleral icterus. No injection or drainage. NECK: Supple, trachea midline. No JVD or lymphadenopathy. CARDIOVASCULAR: Regular rate and rhythm without murmurs, gallops, or rubs. RESPIRATORY: Breath sounds equal bilaterally. No accessory muscle use. GASTROINTESTINAL: Abdomen soft, non-tender, nondistended. MUSCULOSKELETAL: No cyanosis, mild edema. Laboratory Laboratory Tests Test 10/15/17 16:00 10/15/17 20:45 10/16/17 06:30 Blood Urea Nitrogen 19 MG/DL 22 MG/DL Creatinine 1.41 MG/DL 1.71 MG/DL Random Glucose 104 MG/DL 95 MG/DL Total Protein 5.2 GM/DL Calcium Level 6.4 MG/DL 8.6 MG/DL Sodium Level 148 MEQ/L 143 MEQ/L Potassium Level 3.1 MEQ/L 4.2 MEQ/L Chloride Level 117 MEQ/L 110 MEQ/L Carbon Dioxide Level 23.2 MEQ/L 25.2 MEQ/L Anion Gap 8 MEQ/L 8 MEQ/L Estimat Glomerular Filtration Rate 49 ML/MIN 39 ML/MIN Protein Corrected Calcium 7.3 MG/DL Total Creatine Kinase 77 U/L 94 U/L Troponin I 0.14 NG/ML 0.18 NG/ML White Blood Count 7.9 TH/MM3 Red Blood Count 5.05 MIL/MM3 Hemoglobin 15.5 GM/DL Hematocrit 44.8 % Mean Corpuscular Volume 88.7 FL Mean Corpuscular Hemoglobin 30.7 PG Mean Corpuscular Hemoglobin Concent 34.6 % Red Cell Distribution Width 13.1 % Platelet Count 126 TH/MM3 Mean Platelet Volume 7.7 FL Neutrophils (%) (Auto) 57.1 % Lymphocytes (%) (Auto) 27.5 % Monocytes (%) (Auto) 9.5 % Eosinophils (%) (Auto) 5.5 % Basophils (%) (Auto) 0.4 % Neutrophils # (Auto) 4.5 TH/MM3 Lymphocytes # (Auto) 2.2 TH/MM3 Monocytes # (Auto) 0.8 TH/MM3 Eosinophils # (Auto) 0.4 TH/MM3 Basophils # (Auto) 0.0 TH/MM3 CBC Comment DIFF FINAL Differential Comment Assessment and Plan Problem List: (1) Shortness of breath ICD Codes: R06.02 - Shortness of breath Status: Acute (2) CAD (coronary artery disease) ICD Codes: I25.10 - Atherosclerotic heart disease of enterprise coronary artery without angina pectoris (3) Hx of CABG ICD Codes: Z95.1 - Presence of aortocoronary bypass graft (4) CKD (chronic kidney disease) ICD Codes: N18.9 - Chronic kidney disease, unspecified (5) HTN (hypertension) ICD Codes: I10 - Essential (primary) hypertension Assessment and Plan Continue tx for CAD. Add Plavix, continue ASA. Increase Imdur. Add amlodipine, needs better BP control. Increase activity. Will schedule f/u w Dr. Alexandre on Fri to discuss the risks and benefits of cardiac cath again. Sheree Middleton MD Oct 16, 2017 10:12
[2017-10-16] MEDS: CARVEDILOL 12.5 MG TAB PO SCH (10:20)
[2017-10-16] MEDS: TORSEMIDE 20 MG TAB PO SCH (10:20)
[2017-10-16] MEDS: SODIUM CHLORIDE 0.9% FLUSH 10 ML FLUSH IV FLUSH SCH (10:20)
--- NOTE | 2017-10-16 10:20 | HHI.PR ---
Subjective Remarks Follow up chest pain, CHF, CKD. Patient states that he feels much better. No chest pain, dyspnea, headache, vision changes, nausea, vomiting, diarrhea, or constipation. Objective Vitals Vital Signs Date Time Temp Pulse Resp B/P (MAP) Pulse Ox O2 Delivery O2 Flow Rate FiO2 10/16/17 08:55 97.4 62 18 173/97 (122) 94 10/16/17 06:50 61 181/99 (126) 10/16/17 04:45 63 189/103 (131) 10/16/17 04:03 59 10/16/17 03:59 97.9 62 18 188/100 (129) 94 10/16/17 00:34 97.8 61 18 188/97 (127) 96 10/15/17 23:58 60 10/15/17 21:15 98.1 58 18 170/81 (110) 96 10/15/17 19:30 52 10/15/17 17:30 97.6 48 20 146/74 (98) 96 10/15/17 16:44 10/15/17 16:06 54 22 122/71 (88) 98 Nasal Cannula 2.00 10/15/17 13:00 56 23 199/95 (129) 98 Nasal Cannula 2.00 10/15/17 12:00 56 26 197/99 (131) 97 Nasal Cannula 2.00 10/15/17 11:00 54 21 184/93 (123) 97 Nasal Cannula 2.00 10/15/17 10:52 55 16 186/93 (124) 96 Nasal Cannula 2.00 I/O 10/15/17 10/15/17 10/15/17 10/16/17 10/16/17 10/16/17 07:00 15:00 23:00 07:00 15:00 23:00 Intake Total 110 ml Balance 110 ml Intake IV Total 110 ml # Voids 1 Result Diagram: 10/16/1762910/16/17629 Imaging Last Impressions Chest X-Ray 10/15/17701 Signed Impressions: Service Date/Time: Sunday, October 15, 2017 07:25 - CONCLUSION: 1. Chronic interstitial changes and cardiomegaly. Stable compared to prior exam. Chris Ceron MD Objective Remarks General: Obese male in no acute distress. Heart: Regular rate and rhythm. No murmur. Lungs: Clear to auscultation bilaterally. No wheezes, rales, or rhonchi. Breathing is nonlabored. Abdomen: Soft, nontender, nondistended. Extremities: 2+ bilateral lower extremity edema. Psych: Alert and oriented. Procedures None Urinary Catheter: No Vascular Central Line Catheter: No A/P Assessment and Plan 1. Chest pain, coronary artery disease: Patient's chest pain has resolved. Appreciate cardiology recommendations. Continue aspirin, Plavix, Imdur. 2. Hypertension: Poorly controlled. Increase hydralazine. May consider adding amlodipine. Continue Coreg. Avoid OMARI inhibitor secondary to chronic kidney disease. 3. Chronic kidney disease: Patient reports history of right nephrectomy. Sees Dr. Mcmahon for nephrology. Monitor BUN and creatinine. Avoid nephrotoxins. 4. DVT prophylaxis: Heparin. Discharge Planning Possible discharge home later today pending improved blood pressure control. Hola Hinson MD Oct 16, 2017 10:20
[2017-10-16] MEDS ORDERED: HEPARIN SODIUM - SQ 10,000 UNITS/ML VIAL SQ SCH (11:15)
[2017-10-16] MEDS ORDERED: HYDR-3799 PO (15:27)
[2017-10-16] MEDS ORDERED: ATOR80TA45 PO (15:27)
[2017-10-16] MEDS ORDERED: AMLO10 PO (15:27)
[2017-10-16] MEDS ORDERED: ISOS30TA3 PO (15:27)
[2017-10-16] MEDS ORDERED: PLAV75TA29 PO (15:27)
--- NOTE | 2017-10-16 15:28 | HHI.DCPOC ---
Discharge Care Plan Diagnosis: (1) HTN (hypertension) (2) CAD (coronary artery disease) (3) CKD (chronic kidney disease) stage 3, GFR 30-59 ml/min (4) Chest pain Goals to Promote Your Health * To prevent worsening of your condition and complications * To maintain your health at the optimal level Directions to Meet Your Goals Take your medications as prescribed Follow your dietary instruction Follow activity as directed Keep your appointments as scheduled Take your immunizations and boosters as scheduled If your symptoms worsen call your PCP, if no PCP go to Urgent Care Center or Emergency Room Smoking is Dangerous to Your Health. Avoid second hand smoke Call the 24-hour hour crisis hotline for domestic abuse at Hola Hinson MD Oct 16, 2017 15:28
[2017-10-16] MEDS ORDERED: hydrALAZINE HCL 25 MG TAB PO SCH (16:00)
--- NOTE | 2017-10-16 19:52 | EKG ---
Date Performed: 10/15/2017 Time Performed: 21:24:15 PTAGE: 72 years EKG: SINUS BRADYCARDIA WITH FIRST DEGREE AV BLOCK MARKED LEFT AXIS DEVIATION LEFT VENTRICULAR HY PERTROPHY AND ST-T CHANGE POSSIBLE ANTERIOR MYOCARDIAL INFARCTION ABNORMAL ECG PREVIOUS TRACING : 10/15/2017 06.37 Since the prior tracing, there has been no significant alfonso DOCTOR: Chelsie Tomas Interpretating Date/Time 10/16/2017 19:50:10
[2017-10-17] MEDS ORDERED: ISOSORBIDE MONONITRATE 60 MG CR TAB (IMDUR) PO SCH (07:00)
[2017-10-17] MEDS ORDERED: CLOPIDOGREL 75 MG TAB PO SCH (09:00)
== END 2017-10-16 16:29 | disposition home or self-care (01) ==
LOC: NEPC 06:29 → NEDA 14:41 → NEPHCDU 17:33
PROVIDERS: ADMIT Family Medicine; ATTEND Family Medicine
DX: I25.110 Atherosclerotic heart disease of native coronary artery with unstable angina pectoris (principal); I44.4 Left anterior fascicular block; I44.0 Atrioventricular block, first degree; R74.8 Abnormal levels of other serum enzymes; R61 Generalized hyperhidrosis; R11.0 Nausea; R00.1 Bradycardia, unspecified; R94.31 Abnormal electrocardiogram [ECG] [EKG]; I13.0 Hypertensive heart and chronic kidney disease with heart failure and stage 1 through stage 4 chronic kidney disease, or unspecified chronic kidney disease; I50.9 Heart failure, unspecified; N18.3 Chronic kidney disease, stage 3 (moderate); R94.39 Abnormal result of other cardiovascular function study; E78.00 Pure hypercholesterolemia, unspecified; I25.2 Old myocardial infarction; N28.9 Disorder of kidney and ureter, unspecified; E78.5 Hyperlipidemia, unspecified; I35.1 Nonrheumatic aortic (valve) insufficiency; I42.9 Cardiomyopathy, unspecified; N40.0 Benign prostatic hyperplasia without lower urinary tract symptoms; E66.9 Obesity, unspecified; Z95.1 Presence of aortocoronary bypass graft; Z87.891 Personal history of nicotine dependence; Z90.5 Acquired absence of kidney; Z85.528 Personal history of other malignant neoplasm of kidney
CPT/HCPCS: 71045; 80048; 80053; 82550; 82552; 83690; 83735; 83880; 84155; 84484; 85025; 85610; 85730; 93005; 96365; 96375; 97161; 99285; G0378; G8987; G8988; J0610; J2405